=== PATIENT | male | born 1955 ===

== ENCOUNTER → 2020-03-23 13:24 | Outpatient (BNVA) | payer OTHER, SELFPAY | PROVIDERS: PCP Internal Medicine; Visit Provider Internal Medicine | DX: I48.19 Other persistent atrial fibrillation (principal); Z51.81 Encounter for therapeutic drug level monitoring; Z79.01 Long term (current) use of anticoagulants | CPT/HCPCS: 85610 ==

== ENCOUNTER → 2020-04-27 08:50 | Outpatient (BNVA) | payer OTHER, SELFPAY | PROVIDERS: PCP Internal Medicine; Visit Provider Internal Medicine | DX: I48.19 Other persistent atrial fibrillation (principal); Z51.81 Encounter for therapeutic drug level monitoring; Z79.01 Long term (current) use of anticoagulants | CPT/HCPCS: 85610; 99211 ==

== ENCOUNTER → 2020-06-08 08:58 | Outpatient (BNVA) | payer OTHER, SELFPAY | PROVIDERS: PCP Internal Medicine; Visit Provider Internal Medicine | DX: I48.19 Other persistent atrial fibrillation (principal); Z79.01 Long term (current) use of anticoagulants; Z51.81 Encounter for therapeutic drug level monitoring | CPT/HCPCS: 85610; 99211 ==

== ENCOUNTER → 2020-06-29 08:47 | Outpatient (BNVA) | payer OTHER, SELFPAY | PROVIDERS: PCP Internal Medicine; Visit Provider Internal Medicine | DX: I48.19 Other persistent atrial fibrillation (principal); Z51.81 Encounter for therapeutic drug level monitoring; Z79.01 Long term (current) use of anticoagulants | CPT/HCPCS: 85610; 99211 ==

== ENCOUNTER → 2020-07-07 10:51 | Outpatient (BNVA) | payer OTHER, SELFPAY | PROVIDERS: PCP Internal Medicine; Visit Provider Internal Medicine Cardiovascular Disease | DX: I48.0 Paroxysmal atrial fibrillation (principal) | CPT/HCPCS: 93005 ==

== ENCOUNTER 2020-07-29 14:06 | Outpatient (REF) | payer OTHER, SELFPAY ==
[2020-07-29 14:54] LABS: Influenza A PCR NEGATIVE (Negative); Influenza B PCR NEGATIVE (Negative); Resp Syncy Virus RNA Qual PCR NEGATIVE (Negative); SARS COV2 PCR INHOUSE NEGATIVE (Negative)
== END 2020-07-29 14:07 | disposition home or self-care (01) ==
LOC: HO.LNP 14:06
PROVIDERS: Visit Provider Internal Medicine
DX: Z20.822 Contact with and (suspected) exposure to COVID-19 (principal); R07.89 Other chest pain; R11.0 Nausea; R43.8 Other disturbances of smell and taste
CPT/HCPCS: 0241U

== ENCOUNTER → 2020-08-10 09:03 | Outpatient (REF) | payer OTHER, SELFPAY ==
--- NOTE | 2020-08-10 09:07 | CA_ITS ---
Transthoracic Echocardiogram Patient (Last, First, Middle): Quang Gagnon, Gender: Male Date of : 1955 Age: 65 Procedure Date: 08/10/2020 Procedure Type: Transthoracic Echocardiogram Location: OP Height: 185.42 cm Weight: 129.28 kg BSA: 2.50 m2 Heart Rate: bpm BP: 130 / 72 mmHg Mill Tender: TOMER Blood MD: Buster Roa MD Production Finisher: Chaitanya Gaines MD Symptoms: I48.0 - Paroxysmal atrial fibrillation Study Quality: Fair ECG Rhythm: Atrial Fibrillation Conclusions: - 1. Low normal LV systolic function 2. Mildly dilated left atrium 3. Normal cardiac valvular Doppler 4. Normal RV systolic pressure 5. No pericardial effusion Findings Left Ventricle Normal left ventricular cavity size. There is normal left ventricular wall thickness. The left ventricular systolic function is low normal. The visually estimated ejection fraction is between 50-55%. Diastolic function is indeterminate on the basis of available data. Right Ventricle Mildly increased right ventricular cavity size. There is borderline right ventricular systolic function. Atria The left atrium is mildly dilated. There is lipomatous hypertrophy of the interatrial septum. Interatrial shunt cannot be excluded. The right atrium is normal in size. Aortic Valve There is mild calcification of the aortic valve. There is mild thickening of the aortic valve. There is no aortic valve stenosis. There is no aortic valve regurgitation. Mitral Valve Likely normal mitral valve structure and function. There is trace mitral valve regurgitation. There is no mitral valve stenosis. Pulmonic Valve The pulmonic valve was not well visualized. Tricuspid Valve Likely normal tricuspid valve structure and function. There is mild tricuspid valve regurgitation. The right ventricular systolic pressure is normal. The right ventricular systolic pressure is 29 mmHg. Normal right atrial pressure. There is no evidence of pulmonary hypertension. Great Vessels All visible segments of the aorta are normal in size. The pulmonary artery was not well visualized. Venous The inferior vena cava is normal in size and collapses greater than 50% with inspiration. Pericardium/Pleural There is no evidence of pericardial effusion. Prior Study Comparison Changes noted compared to prior study dated: 02/11/2017. Patient noted to be in atrial fibrillation on this study. LV systolic function marginally reduced Measurements 2D Linear Measurements IVSd: 1.05 0.6-0.9/0.6-1.0 cm LVIDd: 4.88 3.9-5.3/4.2-5.9 cm LVIDd Index: 1.95 2.4-3.2/2.2-3.1 cm/m2 LVIDs: 3.56 2.0-3.6 cm LVPWd: 1.00 0.7-1.1 cm Ao Root: 3.50 2.1-3.5 cm LA Diam: 5.20 2.7-3.8/3.0-4.0 cm LAIDs Index: 2.08 1.5-2.3 cm/m2 LV Mass: 268.93 67-162/88-224 g LV Mass Index: 107.57 43-95/49-115 g/m2 LVOT Diam: 2.30 3.0+(-)1.3 cm 2D Systolic Function EF 4C: 50.30 >55% EF 2C: 55.10 >55% EF BiP: 52.20 >55% Aortic Valve AoV Pk Howard: 1.12 AoV Mn Ohward: 0.84 AoV VTI: 0.22 AoV Pk Grad: 5.00 Aov Mn Grad: 3.00 WILFREDO Cont.VTI: 3.78 LVOT LVOT Pk Howard: 0.88 LVOT Mn Howard: 0.57 LVOT VTI: 0.20 LVOT Pk Grad: 3.00 LVOT Mn Grad: 2.00 LVOT Diam: 2.30 LVOT Area: 4.15 Tricuspid Valve TR Pk Howard: 2.53 TR Pk Grad: 26.00 RA Press: 3.00 RVSP: 29.00 Great Vessels Aorta Ao Root-2D: 3.50 2.0-3.7 cm Ao Asc: 3.70 2.1-3.4 cm Ao Arch: 3.30 Updated in Other Vendor System with Status of Final Chaitanya Gaines MD electronically signed on 08/11/2020 11:27:46 AM with status of Final
== END ==
LOC: HO.CARD 09:03
PROVIDERS: PCP Internal Medicine; Visit Provider Internal Medicine Cardiovascular Disease
DX: I48.0 Paroxysmal atrial fibrillation (principal)
CPT/HCPCS: 93306

== ENCOUNTER → 2020-08-17 08:49 | Outpatient (BNVA) | payer OTHER, SELFPAY | PROVIDERS: PCP Internal Medicine; Visit Provider Internal Medicine | DX: I48.19 Other persistent atrial fibrillation (principal); Z51.81 Encounter for therapeutic drug level monitoring; Z79.01 Long term (current) use of anticoagulants | CPT/HCPCS: 85610; 99211 ==

== ENCOUNTER 2020-09-14 11:57 | Outpatient (REF) | payer OTHER, SELFPAY ==
[2020-09-14 14:08] LABS: MANUAL DIFF FLAG NO
[2020-09-14 14:17] LABS: Basophils Percent Auto 0.5 % (0-2); Eosinophils Absolute Auto 0.1 X10*3/uL (0.0-0.4); Eosinophils Percent Auto 1.5 % (0-4); Hematocrit 48.5 % (42-52); Hemoglobin 16.2 g/dl (14.0-18.0); Imm Gran Abs Auto 0.05 X10*3/uL (0.00-0.03); Imm Gran Pct Auto 0.6 % (0.0-0.4); Lymphocytes Absolute Auto 1.3 X10*3/uL (1.2-4.9); Lymphocytes Percent Auto 15.2 % (20-40); Mean Corpuscular HGB Conc 33.4 g/dl (31.0-36.0); Mean Corpuscular Hemoglobin 29.5 pg (27.0-33.0); Mean Corpuscular Volume 88.3 fL (80-98); Mean Platelet Volume 11.1 fL (9.4-12.4); Monocytes Absolute Auto 0.8 X10*3/uL (0.1-1.2); Monocytes Percent Auto 9.3 % (2-11); Neutrophils Absolute Auto 6.2 X10*3/uL (2.0-8.3); Neutrophils Percent Auto 72.9 % (45-73); Platelet Count 205 X10*3/uL (160-400); Red Blood Count 5.49 X10*6/uL (4.60-5.80); Red Cell Distribution Width 13.2 % (11.0-16.0); White Blood Count 8.5 X10*3/uL (4.8-10.8)
[2020-09-14 14:19] LABS: INTERNATIONAL NORM RATIO 2.7 (0.9-1.1); Prothrombin Time 32.2 SEC (10.8-13.0)
[2020-09-14 14:41] LABS: Alanine Aminotransferase 24 U/L (0-40); Albumin Level 4.6 g/dL (3.5-5.0); Alkaline Phosphatase 56 U/L (39-117); Anion Gap 16 (12-20); Aspartate Amino Transferase 22 U/L (5-37); Bilirubin Total 1.1 mg/dL (0.0-1.0); Blood Urea Nitrogen 15 mg/dL (9-16); C Reactive Protein 0.34 mg/dL (< or = 0.50); Carbon Dioxide 25 mmol/L (22-29); Chloride 101 mmol/L (96-108); Estimated Glomerular Filt Rate > 60; Glucose Random 102 mg/dL (60-115); Potassium 4.6 mmol/L (3.3-5.1); Sodium 137 mmol/L (135-145); Total Protein 7.2 g/dL (6.5-8.0)
== END 2020-09-14 11:58 | disposition home or self-care (01) ==
LOC: HO.10HDL 11:57
PROVIDERS: Visit Provider Internal Medicine
DX: K57.90 Diverticulosis of intestine, part unspecified, without perforation or abscess without bleeding (principal); I48.91 Unspecified atrial fibrillation; R10.32 Left lower quadrant pain; N18.9 Chronic kidney disease, unspecified
CPT/HCPCS: 36415; 80053; 85025; 85610; 86140

== ENCOUNTER 2020-09-19 14:47 | Outpatient (REF) | payer OTHER, SELFPAY ==
--- NOTE | ~2020-09-19 | CT_ITS ---
EXAMINATION: CT ABDOMEN AND PELVIS WITHOUT CONTRAST CLINICAL INFORMATION: Diverticulitis COMPARISON: Abdominal ultrasound January 28, [address] abdomen pelvis July 21, 2015 TECHNIQUE: Multidetector volumetric imaging was performed from the superior aspect of the liver through the pubic symphysis. Sagittal and coronal reformatted images were obtained on the technologist's workstation. This CT examination was performed using dose optimization techniques as appropriate, variously including the following: *Automated exposure control *Adjustment of mA and/or kV according to patient size (this includes techniques or standardized protocols for targeted exams where dose is matched to indication/reason for exam; i.e. extremities or head) *Use of iterative reconstruction technique DLP: 876 mGy-cm FINDINGS: Visualized lung bases demonstrate mild dependent atelectasis. Stable 2 mm lingular nodule. Partially visualized coronary artery calcifications. The liver demonstrates normal size, contour and attenuation. The gallbladder is normal in appearance. The pancreas, spleen and adrenal glands are unremarkable. Symmetrically sized kidneys. No renal calculi or hydronephrosis. Stable right renal cyst. 2.4 cm lobular density within the lower lateral pole of the left kidney is poorly visualized but likely corresponds to a partially exophytic nonspecific lesion identified on ultrasound imaging from January 28, 2019. The stomach is decompressed. Normal caliber loops of small and large bowel. Moderate colonic diverticulosis. No CT evidence to suggest active diverticulitis. Normal appendix. Small fat-containing umbilical hernia is unchanged. Nonaneurysmal abdominal aorta which demonstrates mild to moderate atherosclerotic disease. No retroperitoneal lymphadenopathy. The bladder is normal in appearance. The prostate gland is mildly enlarged. No gross free pelvic fluid. Shotty bilateral inguinal lymph nodes again demonstrated. Moderate diffuse degenerative changes of the spine. CT/CT abdomen pelvis wo con IMPRESSION: -Colonic diverticulosis without CT evidence to suggest active diverticulitis. -2.4 cm lobular density within the lower lateral pole of the left kidney is poorly visualized but likely corresponds to the partially exophytic nonspecific lesion identified on ultrasound imaging from January 28, 2019. This nonspecific finding can be further evaluated with follow-up renal ultrasound or multiphase cross-sectional imaging.
[2020-09-19] MEDS: Barium Sulfate Oral (Mocha) 450 ML ORAL.SUSP 900 ML PO (17:06)
== END 2020-09-19 14:48 | disposition home or self-care (01) ==
LOC: HO.CT 14:47
PROVIDERS: PCP Internal Medicine; Visit Provider Internal Medicine
DX: R10.32 Left lower quadrant pain (principal); K57.92 Diverticulitis of intestine, part unspecified, without perforation or abscess without bleeding
CPT/HCPCS: 74176

== ENCOUNTER → 2020-09-21 10:14 | Outpatient (BNVA) | payer OTHER, SELFPAY | PROVIDERS: PCP Internal Medicine; Visit Provider Nurse Practitioner Family | DX: I48.0 Paroxysmal atrial fibrillation (principal); Z79.01 Long term (current) use of anticoagulants; Z79.899 Other long term (current) drug therapy; Z87.891 Personal history of nicotine dependence | CPT/HCPCS: 85610; 93005; 99211 ==

== ENCOUNTER → 2020-09-28 09:43 | Outpatient (REF) | payer OTHER, SELFPAY ==
--- NOTE | 2020-09-28 11:00 | ECG_ITS ---
Hook-up date: 2020-09-28 10:15:00 Duration: 24:42:00 Test Indications: PAF Medications: 51703 QRS complexes 36 Ventricular ectopics which represent <1 % of total QRS comp. * Supraventricular ectopics which represent % of total QRS comp. * Paced QRS complexs which represent % of total QRS comp. VENTRICULAR ECTOPY 36 Isolated 0 Bigeminal Cycles 0 Couplets 0 Runs 0 Beats in Runs * Beats LONGEST at * BPM at :: -- * Beats FASTEST at * BPM at :: -- SUPRAVENTRICULAR ECTOPY * Isolated * Couplets * Runs * Beats in Runs * Beats LONGEST at * BPM at :: -- * Beats FASTEST at * BPM at :: -- HEART RATES 38 MIN at 23:36:33 2020-09-28 66 AVG 144 MAX at 18:19:38 2020-09-28 LONGEST RR 3.2240 secs at 02:18:52 2020-09-29 S-T LEVELS Channel 1 - 128 mm at 10:15:00 2020-09-28 - 128 mm at 10:15:00 2020-09-28 Channel 2 - 128 mm at 10:15:00 2020-09-28 - 128 mm at 10:15:00 2020-09-28 Channel 3 - 128 mm at 02:93:41 -- - 128 mm at 02:93:41 Basic rhythm Atrial fibrillation Average HR of 66 bpm with no significant pauses Frequent slow VR with 35% of time HR < 60 bpm Rare Premature ventricular complexes Patient did not report any symptoms in the diary Referred By: Ruthann Jonas Overread By: ROCIO LAWOSN MD
== END ==
LOC: HO.CARD 09:43
PROVIDERS: PCP Internal Medicine; Visit Provider Nurse Practitioner Family
DX: I48.0 Paroxysmal atrial fibrillation (principal)
CPT/HCPCS: 93226

== ENCOUNTER 2020-10-21 10:41 | Outpatient (REF) | payer OTHER, SELFPAY ==
[2020-10-21 13:50] LABS: MANUAL DIFF FLAG NO
[2020-10-21 13:54] LABS: Basophils Percent Auto 0.4 % (0-2); Eosinophils Absolute Auto 0.1 X10*3/uL (0.0-0.4); Eosinophils Percent Auto 1.3 % (0-4); Hematocrit 46.8 % (42-52); Hemoglobin 15.4 g/dl (14.0-18.0); Imm Gran Abs Auto 0.04 X10*3/uL (0.00-0.03); Imm Gran Pct Auto 0.4 % (0.0-0.4); Lymphocytes Absolute Auto 1.1 X10*3/uL (1.2-4.9); Lymphocytes Percent Auto 9.8 % (20-40); Mean Corpuscular HGB Conc 32.9 g/dl (31.0-36.0); Mean Corpuscular Hemoglobin 29.4 pg (27.0-33.0); Mean Corpuscular Volume 89.5 fL (80-98); Mean Platelet Volume 11.2 fL (9.4-12.4); Monocytes Percent Auto 9.1 % (2-11); Neutrophils Absolute Auto 8.6 X10*3/uL (2.0-8.3); Platelet Count 180 X10*3/uL (160-400); Red Blood Count 5.23 X10*6/uL (4.60-5.80); Red Cell Distribution Width 13.4 % (11.0-16.0); White Blood Count 10.9 X10*3/uL (4.8-10.8)
[2020-10-21 13:58] LABS: Glucose Urine UA NEG (NEG); Leukocyte Esterase Urine NEG (NEG); Nitrite Urine NEG (NEG); PH 6.5 (5.0-8.0); Specific Gravity - Urine <= 1.005 (1.005-1.025); Urine Blood NEG (NEG); Urine Ketones NEG (NEG); Urine Protein NEG (NEG-TRACE)
[2020-10-21 14:01] LABS: Appearance Urine CLEAR; Color Urine YELLOW
[2020-10-21 14:31] LABS: Alanine Aminotransferase 16 U/L (0-40); Albumin Level 4.4 g/dL (3.5-5.0); Alkaline Phosphatase 58 U/L (39-117); Anion Gap 13 (12-20); Aspartate Amino Transferase 18 U/L (5-37); Bilirubin Total 1.2 mg/dL (0.0-1.0); Blood Urea Nitrogen 18 mg/dL (9-16); C Reactive Protein 2.39 mg/dL (< or = 0.50); Calcium 9.3 mg/dL (8.4-10.2); Carbon Dioxide 29 mmol/L (22-29); Chloride 103 mmol/L (96-108); Estimated Glomerular Filt Rate > 60; Glucose Fasting 96 mg/dL (60-99); Potassium 4.7 mmol/L (3.3-5.1); Sodium 140 mmol/L (135-145); Total Protein 6.9 g/dL (6.5-8.0)
== END 2020-10-21 10:42 | disposition home or self-care (01) ==
LOC: HO.10HDL 10:41
PROVIDERS: Visit Provider Internal Medicine
DX: I48.91 Unspecified atrial fibrillation (principal); R10.32 Left lower quadrant pain; K57.90 Diverticulosis of intestine, part unspecified, without perforation or abscess without bleeding
CPT/HCPCS: 36415; 80053; 81003; 82550; 85025; 86140

== ENCOUNTER → 2020-11-02 09:56 | Outpatient (BNVA) | payer OTHER, SELFPAY | PROVIDERS: PCP Internal Medicine; Visit Provider Internal Medicine | DX: I48.19 Other persistent atrial fibrillation (principal); Z51.81 Encounter for therapeutic drug level monitoring; Z79.01 Long term (current) use of anticoagulants | CPT/HCPCS: 85610; 93005; 99211 ==

== ENCOUNTER → 2020-12-14 09:23 | Outpatient (BNVA) | payer OTHER, SELFPAY | PROVIDERS: PCP Internal Medicine; Visit Provider Internal Medicine | DX: I48.19 Other persistent atrial fibrillation (principal); Z51.81 Encounter for therapeutic drug level monitoring; Z79.01 Long term (current) use of anticoagulants | CPT/HCPCS: 85610; 99211 ==

== ENCOUNTER → 2021-01-25 09:23 | Outpatient (BNVA) | payer OTHER, SELFPAY | PROVIDERS: PCP Internal Medicine; Visit Provider Internal Medicine | DX: I48.19 Other persistent atrial fibrillation (principal); Z51.81 Encounter for therapeutic drug level monitoring; Z79.01 Long term (current) use of anticoagulants | CPT/HCPCS: 85610; 99211 ==

== ENCOUNTER → 2021-02-21 12:55 | Outpatient (BNVA) | payer OTHER, SELFPAY | PROVIDERS: PCP Internal Medicine; Referring Provider Internal Medicine; Visit Provider Nurse Practitioner Family | DX: I48.0 Paroxysmal atrial fibrillation (principal); Z79.01 Long term (current) use of anticoagulants | CPT/HCPCS: 93005 ==

== ENCOUNTER 2021-03-03 06:31 | Outpatient (REF) | payer OTHER, SELFPAY ==
[2021-03-03 07:35] LABS: MANUAL DIFF FLAG NO
[2021-03-03 07:40] LABS: Basophils Percent Auto 0.7 % (0-2); Eosinophils Absolute Auto 0.1 X10*3/uL (0.0-0.4); Eosinophils Percent Auto 2.4 % (0-4); Hematocrit 43.6 % (42-52); Hemoglobin 14.2 g/dl (14.0-18.0); Imm Gran Abs Auto 0.03 X10*3/uL (0.00-0.03); Imm Gran Pct Auto 0.6 % (0.0-0.4); Lymphocytes Absolute Auto 1.2 X10*3/uL (1.2-4.9); Lymphocytes Percent Auto 21.6 % (20-40); Mean Corpuscular HGB Conc 32.6 g/dl (31.0-36.0); Mean Corpuscular Hemoglobin 28.7 pg (27.0-33.0); Mean Corpuscular Volume 88.3 fL (80-98); Mean Platelet Volume 10.8 fL (9.4-12.4); Monocytes Absolute Auto 0.5 X10*3/uL (0.1-1.2); Monocytes Percent Auto 9.5 % (2-11); Neutrophils Absolute Auto 3.5 X10*3/uL (2.0-8.3); Neutrophils Percent Auto 65.2 % (45-73); Platelet Count 211 X10*3/uL (160-400); Red Blood Count 4.94 X10*6/uL (4.60-5.80); Red Cell Distribution Width 13.2 % (11.0-16.0); White Blood Count 5.4 X10*3/uL (4.8-10.8)
[2021-03-03 08:17] LABS: Alanine Aminotransferase 44 U/L (0-40); Albumin Level 3.9 g/dL (3.5-5.0); Alkaline Phosphatase 73 U/L (39-117); Anion Gap 12 (12-20); Aspartate Amino Transferase 28 U/L (5-37); Bilirubin Total 0.6 mg/dL (0.0-1.0); Blood Urea Nitrogen 13 mg/dL (9-16); C Reactive Protein 2.07 mg/dL (< or = 0.50); Calcium 8.6 mg/dL (8.4-10.2); Carbon Dioxide 26 mmol/L (22-29); Chloride 106 mmol/L (96-108); Estimated Glomerular Filt Rate > 60; Glucose Random 90 mg/dL (60-115); Potassium 4.5 mmol/L (3.3-5.1); Sodium 139 mmol/L (135-145); Total Protein 6.3 g/dL (6.5-8.0)
[2021-03-03 08:44] LABS: Appearance Urine CLEAR; Color Urine YELLOW; Glucose Urine UA NEG (NEG); Leukocyte Esterase Urine NEG (NEG); Nitrite Urine NEG (NEG); PH 5.5 (5.0-8.0); Specific Gravity - Urine 1.025 (1.005-1.025); Urine Blood NEG (NEG); Urine Ketones NEG (NEG); Urine Protein NEG (NEG-TRACE)
== END 2021-03-03 06:32 | disposition home or self-care (01) ==
LOC: HO.LAB 06:31
PROVIDERS: PCP Internal Medicine; Visit Provider Internal Medicine
DX: R10.9 Unspecified abdominal pain (principal); R30.0 Dysuria; Z87.19 Personal history of other diseases of the digestive system
CPT/HCPCS: 36415; 80053; 81003; 85025; 86140; 87086

== ENCOUNTER → 2021-03-08 08:46 | Outpatient (BNVA) | payer OTHER, SELFPAY | PROVIDERS: PCP Internal Medicine; Visit Provider Internal Medicine | DX: I48.19 Other persistent atrial fibrillation (principal); Z51.81 Encounter for therapeutic drug level monitoring; Z79.01 Long term (current) use of anticoagulants | CPT/HCPCS: 85610; 99211 ==

== ENCOUNTER 2021-03-09 07:49 | Outpatient (REF) | payer OTHER, SELFPAY ==
[2021-03-09 09:04] LABS: Anion Gap 12 (12-20); Blood Urea Nitrogen 16 mg/dL (9-16); Calcium 9.4 mg/dL (8.4-10.2); Carbon Dioxide 28 mmol/L (22-29); Chloride 103 mmol/L (96-108); Estimated Glomerular Filt Rate 59; Glucose Random 96 mg/dL (60-115); Potassium 4.6 mmol/L (3.3-5.1); Sodium 138 mmol/L (135-145)
[2021-03-09 09:29] LABS: Prostate Specific Antigen 1.82 ng/mL (<0.05-4.0)
== END 2021-03-09 07:50 | disposition home or self-care (01) ==
LOC: HO.LAB 07:49
PROVIDERS: PCP Internal Medicine; Visit Provider Internal Medicine
DX: Z12.5 Encounter for screening for malignant neoplasm of prostate (principal); N40.0 Benign prostatic hyperplasia without lower urinary tract symptoms; R35.1 Nocturia
CPT/HCPCS: 36415; 80048; 84153

== ENCOUNTER 2021-04-19 07:24 | Outpatient (REF) | payer OTHER, SELFPAY ==
[2021-04-19 07:31] LABS: MANUAL DIFF FLAG NO
[2021-04-19 08:29] LABS: Basophils Percent Auto 0.7 % (0-2); Eosinophils Absolute Auto 0.1 X10*3/uL (0.0-0.4); Eosinophils Percent Auto 1.7 % (0-4); Hematocrit 47.5 % (42.0-52.0); Hemoglobin 15.7 g/dl (14.0-18.0); Imm Gran Abs Auto 0.02 X10*3/uL (0.00-0.03); Imm Gran Pct Auto 0.3 % (0.0-0.4); Lymphocytes Absolute Auto 1.2 X10*3/uL (1.2-4.9); Lymphocytes Percent Auto 20.5 % (20-40); Mean Corpuscular HGB Conc 33.1 g/dl (31.0-36.0); Mean Corpuscular Hemoglobin 29.2 pg (27.0-33.0); Mean Corpuscular Volume 88.5 fL (80.0-98.0); Monocytes Absolute Auto 0.5 X10*3/uL (0.1-1.2); Neutrophils Absolute Auto 4.08 x10*3/uL (2.0-8.3); Neutrophils Percent Auto 67.8 % (45-73); Platelet Count 170 X10*3/uL (160-400); Red Blood Count 5.37 X10*6/uL (4.60-5.80); Red Cell Distribution Width 13.6 % (11.0-16.0)
[2021-04-19 08:58] LABS: Alanine Aminotransferase 19 U/L (0-40); Albumin Level 4.5 g/dL (3.5-5.0); Alkaline Phosphatase 50 U/L (39-117); Anion Gap 12 (12-20); Aspartate Amino Transferase 18 U/L (5-37); Bilirubin Direct 0.3 mg/dL (0.0-0.5); Bilirubin Total 0.7 mg/dL (0.0-1.0); Blood Urea Nitrogen 14 mg/dL (9-16); Calcium 9.4 mg/dL (8.4-10.2); Carbon Dioxide 30 mmol/L (22-29); Chloride 104 mmol/L (96-108); Cholesterol 145 mg/dL; Estimated Glomerular Filt Rate 58; Glucose Fasting 113 mg/dL (60-99); HDL Cholesterol 36 mg/dL; LDL Cholesterol Calculated 76 mg/dl; Potassium 4.9 mmol/L (3.3-5.1); Sodium 141 mmol/L (135-145); Total Protein 6.6 g/dL (6.5-8.0); Triglycerides 169 mg/dL
[2021-04-19 09:19] LABS: Prostate Specific Antigen 1.02 ng/mL (<0.05-4.0)
== END 2021-04-19 07:25 | disposition home or self-care (01) ==
LOC: HO.LAB 07:24
PROVIDERS: PCP Internal Medicine; Visit Provider Internal Medicine
DX: I10 Essential (primary) hypertension (principal); I48.0 Paroxysmal atrial fibrillation; E78.00 Pure hypercholesterolemia, unspecified; Z12.5 Encounter for screening for malignant neoplasm of prostate; I48.19 Other persistent atrial fibrillation; Z51.81 Encounter for therapeutic drug level monitoring; Z79.01 Long term (current) use of anticoagulants
CPT/HCPCS: 36415; 80053; 80061; 80076; 82248; 84153; 85025; 85610; 99211

== ENCOUNTER → 2021-05-24 08:45 | Outpatient (BNVA) | payer OTHER, SELFPAY | PROVIDERS: PCP Internal Medicine; Visit Provider Internal Medicine | DX: I48.19 Other persistent atrial fibrillation (principal); Z51.81 Encounter for therapeutic drug level monitoring; Z79.01 Long term (current) use of anticoagulants | CPT/HCPCS: 85610; 99211 ==

== ENCOUNTER → 2021-07-19 08:58 | Outpatient (BNVA) | payer OTHER, SELFPAY | PROVIDERS: PCP Internal Medicine; Visit Provider Internal Medicine | DX: I48.19 Other persistent atrial fibrillation (principal); Z51.81 Encounter for therapeutic drug level monitoring; Z79.01 Long term (current) use of anticoagulants | CPT/HCPCS: 85610; 99211 ==

== ENCOUNTER → 2021-08-30 08:54 | Outpatient (BNVA) | payer OTHER, SELFPAY | PROVIDERS: PCP Internal Medicine; Visit Provider Internal Medicine | DX: I48.19 Other persistent atrial fibrillation (principal); Z51.81 Encounter for therapeutic drug level monitoring; Z79.01 Long term (current) use of anticoagulants | CPT/HCPCS: 85610; 99211 ==

== ENCOUNTER → 2021-10-11 08:50 | Outpatient (BNVA) | payer OTHER, SELFPAY | PROVIDERS: PCP Internal Medicine; Visit Provider Internal Medicine | DX: I48.19 Other persistent atrial fibrillation (principal); Z79.01 Long term (current) use of anticoagulants; Z51.81 Encounter for therapeutic drug level monitoring | CPT/HCPCS: 85610; 99211 ==

== ENCOUNTER → 2021-10-25 13:04 | Outpatient (BNVA) | payer OTHER, SELFPAY | PROVIDERS: PCP Internal Medicine; Referring Provider Internal Medicine; Visit Provider Nurse Practitioner Family | DX: I48.0 Paroxysmal atrial fibrillation (principal); Z79.01 Long term (current) use of anticoagulants | CPT/HCPCS: 93005 ==

== ENCOUNTER 2021-10-26 10:54 | Outpatient (REF) | payer OTHER, SELFPAY ==
[2021-10-26 11:40] LABS: MANUAL DIFF FLAG NO
[2021-10-26 12:09] LABS: Basophils Percent Auto 0.5 % (0-2); Eosinophils Absolute Auto 0.2 X10*3/uL (0.0-0.4); Eosinophils Percent Auto 1.9 % (0-4); Hematocrit 44.3 % (42.0-52.0); Hemoglobin 14.5 g/dl (14.0-18.0); Imm Gran Abs Auto 0.03 X10*3/uL (0.00-0.03); Imm Gran Pct Auto 0.4 % (0.0-0.4); Lymphocytes Absolute Auto 1.3 X10*3/uL (1.2-4.9); Lymphocytes Percent Auto 15.3 % (20-40); Mean Corpuscular HGB Conc 32.7 g/dl (31.0-36.0); Mean Corpuscular Hemoglobin 29.1 pg (27.0-33.0); Mean Corpuscular Volume 88.8 fL (80.0-98.0); Mean Platelet Volume 11.3 fL (9.4-12.4); Monocytes Absolute Auto 0.8 X10*3/uL (0.1-1.2); Neutrophils Absolute Auto 6.1 x10*3/uL (2.0-8.3); Neutrophils Percent Auto 72.9 % (45-73); Platelet Count 175 X10*3/uL (160-400); Red Blood Count 4.99 X10*6/uL (4.60-5.80); Red Cell Distribution Width 13.2 % (11.0-16.0); White Blood Count 8.3 X10*3/uL (4.8-10.8)
[2021-10-26 12:37] LABS: INTERNATIONAL NORM RATIO 3.1 (0.9-1.1); Prothrombin Time 35.8 SEC (9.9-13.0)
[2021-10-26 12:42] LABS: Anion Gap 13 (12-20); Blood Urea Nitrogen 15 mg/dL (9-16); Calcium 9.3 mg/dL (8.4-10.2); Carbon Dioxide 28 mmol/L (22-29); Chloride 104 mmol/L (96-108); Estimated Glomerular Filt Rate > 60; Glucose Random 103 mg/dL (60-115); Potassium 5.4 mmol/L (3.3-5.1); Sodium 140 mmol/L (135-145)
== END 2021-10-26 10:55 | disposition home or self-care (01) ==
LOC: HO.LAB 10:54
PROVIDERS: PCP Internal Medicine; Visit Provider Internal Medicine
DX: R04.0 Epistaxis (principal); I48.91 Unspecified atrial fibrillation; N18.9 Chronic kidney disease, unspecified
CPT/HCPCS: 36415; 80048; 85025; 85610

== ENCOUNTER → 2021-11-08 13:09 | Outpatient (REF) | payer OTHER, SELFPAY ==
--- NOTE | 2021-11-08 13:12 | ECG_ITS ---
Hook-up date: 2021-11-08 12:21:00 Duration: 24:21:00 Test Indications: PAF Medications: 17331 QRS complexes 269 Ventricular ectopics which represent <1 % of total QRS comp. * Supraventricular ectopics which represent % of total QRS comp. * Paced QRS complexs which represent % of total QRS comp. VENTRICULAR ECTOPY 267 Isolated 0 Bigeminal Cycles 1 Couplets 0 Runs 0 Beats in Runs * Beats LONGEST at * BPM at :: -- * Beats FASTEST at * BPM at :: -- SUPRAVENTRICULAR ECTOPY * Isolated * Couplets * Runs * Beats in Runs * Beats LONGEST at * BPM at :: -- * Beats FASTEST at * BPM at :: -- HEART RATES 31 MIN at 23:47:26 2021-11-08 61 AVG 147 MAX at 17:15:18 2021-11-08 LONGEST RR 3.4400 secs at 23:47:18 2021-11-08 S-T LEVELS Channel 1 - 128 mm at 12:21:00 2021-11-08 - 128 mm at 12:21:00 2021-11-08 Channel 2 - 128 mm at 12:21:00 2021-11-08 - 128 mm at 12:21:00 2021-11-08 Channel 3 - 128 mm at 03:14:01 -- - 128 mm at 03:14:01 Underlying rhythm atrial fibrillation; Average rate 61/min; range 31-147/min; About 45% of the time, rate <60/min; 5%, >100/min; Longest pause 3.4sec during sleep hours; longest daytime pause 2.9sec; Overall, reasonable rate control, but with evidence of both bradycardia and tachycardia at times. Referred By: Ruthann Jonas Overread By: AVA KHAN
== END ==
LOC: HO.CARD 13:09
PROVIDERS: PCP Internal Medicine; Visit Provider Nurse Practitioner Family
DX: I48.0 Paroxysmal atrial fibrillation (principal)
CPT/HCPCS: 93226

== ENCOUNTER → 2021-11-22 08:48 | Outpatient (BNVA) | payer OTHER, SELFPAY | PROVIDERS: PCP Internal Medicine; Visit Provider Internal Medicine | DX: Z79.01 Long term (current) use of anticoagulants (principal); Z51.81 Encounter for therapeutic drug level monitoring; I48.19 Other persistent atrial fibrillation | CPT/HCPCS: 85610; 99211 ==

== ENCOUNTER → 2022-01-03 08:47 | Outpatient (BNVA) | payer OTHER, SELFPAY | PROVIDERS: PCP Internal Medicine; Visit Provider Internal Medicine | DX: I48.19 Other persistent atrial fibrillation (principal); Z15.81 Genetic susceptibility to multiple endocrine neoplasia [MEN]; Z79.01 Long term (current) use of anticoagulants | CPT/HCPCS: 85610; 99211 ==

== ENCOUNTER → 2022-02-14 09:02 | Outpatient (BNVA) | payer OTHER, SELFPAY | PROVIDERS: PCP Internal Medicine; Visit Provider Internal Medicine | DX: I48.19 Other persistent atrial fibrillation (principal); Z51.81 Encounter for therapeutic drug level monitoring; Z79.01 Long term (current) use of anticoagulants | CPT/HCPCS: 85610; 99211 ==

== ENCOUNTER → 2022-03-28 09:30 | Outpatient (BNVA) | payer OTHER, SELFPAY | PROVIDERS: PCP Internal Medicine; Visit Provider Internal Medicine | DX: I48.19 Other persistent atrial fibrillation (principal); Z79.01 Long term (current) use of anticoagulants; Z51.81 Encounter for therapeutic drug level monitoring | CPT/HCPCS: 85610; 99211 ==

== ENCOUNTER → 2022-04-30 09:13 | Outpatient (BNVA) | payer OTHER, SELFPAY | PROVIDERS: PCP Internal Medicine; Referring Provider Internal Medicine; Visit Provider Internal Medicine Cardiovascular Disease | DX: I48.0 Paroxysmal atrial fibrillation (principal) | CPT/HCPCS: 93005 ==

== ENCOUNTER → 2022-05-04 08:07 | Outpatient (REF) | payer OTHER, SELFPAY ==
--- NOTE | 2022-05-04 08:09 | CA_ITS ---
Transthoracic Echocardiogram Patient (Last, First, Middle): Steph Gagnon, Gender: Male Date of : 1955 Age: 67 Procedure Date: 05/04/2022 Procedure Type: Transthoracic Echocardiogram Location: OP Height: 185.42 cm Weight: 124.74 kg BSA: 2.46 m2 Heart Rate: 85 bpm BP: 126 / 80 mmHg Help Aid: SB Referring MD: Buster Roa MD Label Cutter: Buster Roa MD Symptoms: I48.0 - Paroxysmal atrial fibrillation Study Quality: Adequate ECG Rhythm: Atrial Fibrillation Conclusions: - 1. Low normal LV systolic function with LVEF of 50-55% 2. Moderately enlarged right and left atrium 3. Normal cardiac valvular Dopplers next 4. Normal RV systolic pressure with mildly elevated right atrial pressures 5. No gross pericardial effusion Findings Left Ventricle Normal left ventricular cavity size. There is normal left ventricular wall thickness. The left ventricular systolic function is low normal. The visually estimated ejection fraction is between 50-55%. Diastolic function is indeterminate on the basis of available data. Peak GLS is -13.1%, which is reduced. Right Ventricle Mildly increased right ventricular cavity size. There is normal right ventricular systolic function. Atria The left atrium is moderately dilated. There is no evidence of interatrial shunt. The right atrium is moderately dilated. Aortic Valve Normal aortic valve structure and function. There is no aortic valve stenosis. There is no aortic valve regurgitation. Mitral Valve There is mild anterior and posterior mitral leaflet thickening. There is trace mitral valve regurgitation. There is no mitral valve stenosis. Pulmonic Valve The pulmonic valve was not well visualized. Tricuspid Valve Normal tricuspid valve structure. There is trace tricuspid valve regurgitation. The right ventricular systolic pressure is normal. Mildly elevated right atrial pressure. There is no evidence of pulmonary hypertension. Great Vessels All visible segments of the aorta are normal in size. The pulmonary artery was not well visualized. Venous The inferior vena cava is mildly dilated and collapses less than 50% with inspiration. Pericardium/Pleural There is no evidence of pericardial effusion. Measurements 2D Linear Measurements IVSd: 1.29 0.6-0.9/0.6-1.0 cm LVIDd: 5.47 3.9-5.3/4.2-5.9 cm LVIDd Index: 2.22 2.4-3.2/2.2-3.1 cm/m2 LVIDs: 3.37 2.0-3.6 cm LVPWd: 0.82 0.7-1.1 cm LA Diam: 5.30 2.7-3.8/3.0-4.0 cm LAIDs Index: 2.15 1.5-2.3 cm/m2 LV Mass: 283.08 67-162/88-224 g LV Mass Index: 115.08 43-95/49-115 g/m2 LVOT Diam: 2.60 3.0+(-)1.3 cm 2D Systolic Function EF 4C: 53.50 >55% EF 2C: 53.50 >55% EF BiP: 52.20 >55% Mitral Valve MV Pk E: 0.94 Aortic Valve AoV Pk Howard: 1.29 AoV Pk Grad: 7.00 WILFREDO: 4.10 LVOT LVOT Pk Howard: 1.01 LVOT Mn Howard: 0.71 LVOT VTI: 0.19 LVOT Pk Grad: 4.00 LVOT Mn Grad: 2.00 LVOT Diam: 2.60 LVOT Area: 5.31 Diastolic Function MV Pk E: 0.94 Right Ventricle TAPSE (mm): 20.90 TVS' Howard: 12.90 Tricuspid Valve TR Pk Howard: 2.61 TR Pk Grad: 27.00 RA Press: 8.00 RVSP: 35.00 Great Vessels Aorta Sinus of Valsalva: 3.40 2.0-3.5 cm Ao Asc: 3.80 2.1-3.4 cm Pulmonary Valve PV Pk Howard: 1.11 Peak PV Grad: 5.00 Updated in Other Vendor System with Status of Final Chaitanya Gaines MD electronically signed on 05/06/2022 12:10:49 PM with status of Final
== END ==
LOC: HO.CARD 08:07
PROVIDERS: PCP Internal Medicine; Visit Provider Internal Medicine Cardiovascular Disease
DX: I48.0 Paroxysmal atrial fibrillation (principal)
CPT/HCPCS: 93306; 93356

== ENCOUNTER 2022-05-04 09:10 | Outpatient (REF) | payer OTHER, SELFPAY ==
--- NOTE | ~2022-05-04 | XR_ITS ---
EXAMINATION: XR CHEST CLINICAL INFORMATION: Cough COMPARISON: Previous chest x-ray 2018 TECHNIQUE: 2 views of the chest were obtained. FINDINGS: The cardiac and mediastinal contours are stable. The thoracic aorta is tortuous. There is patchy airspace disease seen in the right upper lobe questionable for small pneumonia. The lungs are otherwise clear. There is no pleural effusion or pneumothorax. There are degenerative changes of the spine. XR/XR chest 2V IMPRESSION: Question small upper lobe right pneumonia. Findings will be communicated by the [place] work flow general farmer.
[2022-05-04 10:24] LABS: MANUAL DIFF FLAG NO
[2022-05-04 10:28] LABS: Basophils Absolute Auto 0.1 X10*3/uL (0.0-0.2); Basophils Percent Auto 0.5 % (0-2); Eosinophils Absolute Auto 0.1 X10*3/uL (0.0-0.4); Eosinophils Percent Auto 0.8 % (0-4); Hematocrit 47.5 % (42.0-52.0); Hemoglobin 15.6 g/dl (14.0-18.0); Imm Gran Abs Auto 0.05 X10*3/uL (0.00-0.03); Imm Gran Pct Auto 0.4 % (0.0-0.4); Lymphocytes Absolute Auto 0.8 X10*3/uL (1.2-4.9); Lymphocytes Percent Auto 6.4 % (20-40); Mean Corpuscular HGB Conc 32.8 g/dl (31.0-36.0); Mean Corpuscular Hemoglobin 29.3 pg (27.0-33.0); Mean Corpuscular Volume 89.1 fL (80.0-98.0); Mean Platelet Volume 11.5 fL (9.4-12.4); Monocytes Percent Auto 8.1 % (2-11); Neutrophils Absolute Auto 10.8 x10*3/uL (2.0-8.3); Neutrophils Percent Auto 83.8 % (45-73); Platelet Count 161 X10*3/uL (160-400); Red Blood Count 5.33 X10*6/uL (4.60-5.80); Red Cell Distribution Width 13.5 % (11.0-16.0); White Blood Count 12.9 X10*3/uL (4.8-10.8)
[2022-05-04 10:49] LABS: Appearance Urine Clear; Color Urine Dark Yellow; Glucose Urine UA Negative (Negative); Leukocyte Esterase Urine Negative (Negative); Nitrite Urine Negative (Negative); Specific Gravity - Urine 1.025 (1.005-1.025); UMIC TRIGGER UACC YES; Urine Blood Negative (Negative); Urine Ketones Trace mg/dL (Negative); Urine Protein 30 (1+) mg/dL (Neg-Trace)
[2022-05-04 10:51] LABS: Bacteria Urine None Seen (None Seen); RBC Urine 0-2 /HPF (0-2); Squamous Epithelial Cell Urine 0-2 /HPF (0-2); WBC Urine 0-5 /HPF (0-5)
[2022-05-04 11:08] LABS: Anion Gap 17 (12-20); Blood Urea Nitrogen 16 mg/dL (9-16); Calcium 9.1 mg/dL (8.4-10.2); Carbon Dioxide 27 mmol/L (22-29); Chloride 100 mmol/L (96-108); Estimated Glomerular Filt Rate 52; Glucose Random 88 mg/dL (60-115); Potassium 4.3 mmol/L (3.3-5.1); Sodium 140 mmol/L (135-145)
[2022-05-04 11:53] LABS: Influenza A PCR NEGATIVE (Negative); Influenza B PCR NEGATIVE (Negative); Resp Syncy Virus RNA Qual PCR NEGATIVE (Negative); SARS COV2 PCR INHOUSE NEGATIVE (Negative)
== END 2022-05-04 09:11 | disposition home or self-care (01) ==
LOC: HO.10HDL 09:10
PROVIDERS: Visit Provider Internal Medicine
DX: Z20.822 Contact with and (suspected) exposure to COVID-19 (principal); R05.9 Cough, unspecified; R50.9 Fever, unspecified
CPT/HCPCS: 0241U; 36415; 71046; 80048; 81001; 85025; 87086

== ENCOUNTER → 2022-05-09 09:28 | Outpatient (BNVA) | payer OTHER, SELFPAY | PROVIDERS: PCP Internal Medicine; Visit Provider Internal Medicine | DX: I48.19 Other persistent atrial fibrillation (principal); Z51.81 Encounter for therapeutic drug level monitoring; Z79.01 Long term (current) use of anticoagulants | CPT/HCPCS: 85610; 99211 ==

== ENCOUNTER → 2022-05-16 09:20 | Outpatient (BNVA) | payer OTHER, SELFPAY | PROVIDERS: PCP Internal Medicine; Visit Provider Internal Medicine | DX: I48.19 Other persistent atrial fibrillation (principal); Z51.81 Encounter for therapeutic drug level monitoring; Z79.01 Long term (current) use of anticoagulants | CPT/HCPCS: 85610; 99211 ==

== ENCOUNTER → 2022-06-13 09:25 | Outpatient (BNVA) | payer OTHER, SELFPAY | PROVIDERS: PCP Internal Medicine; Visit Provider Internal Medicine | DX: I48.19 Other persistent atrial fibrillation (principal); Z79.01 Long term (current) use of anticoagulants; Z51.81 Encounter for therapeutic drug level monitoring | CPT/HCPCS: 85610; 99211 ==

== ENCOUNTER → 2022-06-27 09:26 | Outpatient (BNVA) | payer OTHER, SELFPAY | PROVIDERS: PCP Internal Medicine; Visit Provider Internal Medicine | DX: I48.19 Other persistent atrial fibrillation (principal); Z51.81 Encounter for therapeutic drug level monitoring; Z79.01 Long term (current) use of anticoagulants | CPT/HCPCS: 85610; 99211 ==

== ENCOUNTER 2022-06-28 07:58 | Outpatient (REF) | payer OTHER, SELFPAY ==
--- NOTE | ~2022-06-28 | XR_ITS ---
EXAMINATION: XR CHEST CLINICAL INFORMATION: Pneumonia COMPARISON: 05/04/2022 TECHNIQUE: 2 views of the chest were obtained. FINDINGS: Lungs are well expanded. Interval resolution of patchy airspace opacity of right upper lobe seen on 05/04/2022. No pleural effusion. Cardiac silhouette has normal size and contour. Pulmonary vascular pattern is normal. The visualized bones are intact. XR/XR chest 2V IMPRESSION: 1. Interval resolution of right upper lobe pneumonia. 2. No acute pulmonary disease.
[2022-06-28 08:09] LABS: MANUAL DIFF FLAG NO
[2022-06-28 08:58] LABS: Basophils Absolute Auto 0.1 X10*3/uL (0.0-0.2); Eosinophils Absolute Auto 0.2 X10*3/uL (0.0-0.4); Eosinophils Percent Auto 2.2 % (0-4); Hematocrit 46.9 % (42.0-52.0); Hemoglobin 15.5 g/dl (14.0-18.0); Imm Gran Abs Auto 0.05 X10*3/uL (0.00-0.03); Imm Gran Pct Auto 0.7 % (0.0-0.4); Lymphocytes Absolute Auto 1.4 X10*3/uL (1.2-4.9); Lymphocytes Percent Auto 20.7 % (20-40); Mean Corpuscular Hemoglobin 28.9 pg (27.0-33.0); Mean Corpuscular Volume 87.5 fL (80.0-98.0); Mean Platelet Volume 11.3 fL (9.4-12.4); Monocytes Absolute Auto 0.7 X10*3/uL (0.1-1.2); Monocytes Percent Auto 10.3 % (2-11); Neutrophils Absolute Auto 4.4 x10*3/uL (2.0-8.3); Neutrophils Percent Auto 65.1 % (45-73); Platelet Count 152 X10*3/uL (160-400); Red Blood Count 5.36 X10*6/uL (4.60-5.80); Red Cell Distribution Width 13.6 % (11.0-16.0); White Blood Count 6.7 X10*3/uL (4.8-10.8)
[2022-06-28 09:26] LABS: Alanine Aminotransferase 31 U/L (0-40); Albumin Level 4.3 g/dL (3.5-5.0); Alkaline Phosphatase 62 U/L (39-117); Anion Gap 11 (12-20); Aspartate Amino Transferase 28 U/L (5-37); Bilirubin Total 0.8 mg/dL (0.0-1.0); Blood Urea Nitrogen 19 mg/dL (9-16); Calcium 9.3 mg/dL (8.4-10.2); Carbon Dioxide 32 mmol/L (22-29); Chloride 102 mmol/L (96-108); Cholesterol 167 mg/dL; Estimated Glomerular Filt Rate 53; Glucose Fasting 104 mg/dL (60-99); HDL Cholesterol 39 mg/dL; LDL Cholesterol Calculated 91 mg/dl; Potassium 4.8 mmol/L (3.3-5.1); Sodium 140 mmol/L (135-145); Total Protein 6.7 g/dL (6.5-8.0); Triglycerides 187 mg/dL
[2022-06-28 09:44] LABS: Prostate Specific Antigen Scr 1.66 ng/mL (<0.05-4.0)
== END 2022-06-28 07:59 | disposition home or self-care (01) ==
LOC: HO.LAB 07:58
PROVIDERS: PCP Internal Medicine; Visit Provider Internal Medicine
DX: Z00.00 Encounter for general adult medical examination without abnormal findings (principal); Z12.5 Encounter for screening for malignant neoplasm of prostate; I48.91 Unspecified atrial fibrillation; Z87.01 Personal history of pneumonia (recurrent)
CPT/HCPCS: 36415; 71046; 80053; 80061; 84153; 85025

== ENCOUNTER → 2022-07-25 09:24 | Outpatient (BNVA) | payer OTHER, SELFPAY | PROVIDERS: PCP Internal Medicine; Visit Provider Internal Medicine | DX: I48.19 Other persistent atrial fibrillation (principal); Z51.81 Encounter for therapeutic drug level monitoring; Z79.01 Long term (current) use of anticoagulants | CPT/HCPCS: 85610; 99211 ==

== ENCOUNTER → 2022-09-05 09:25 | Outpatient (BNVA) | payer OTHER, SELFPAY | PROVIDERS: PCP Internal Medicine; Visit Provider Internal Medicine | DX: I48.19 Other persistent atrial fibrillation (principal); Z51.81 Encounter for therapeutic drug level monitoring; Z79.01 Long term (current) use of anticoagulants | CPT/HCPCS: 85610; 99211 ==

== ENCOUNTER 2022-09-26 10:28 | Outpatient (REF) | payer OTHER, SELFPAY ==
[2022-09-26 14:12] LABS: MANUAL DIFF FLAG NO
[2022-09-26 14:23] LABS: Basophils Absolute Auto 0.1 X10*3/uL (0.0-0.2); Basophils Percent Auto 0.9 % (0-2); Eosinophils Absolute Auto 0.1 X10*3/uL (0.0-0.4); Eosinophils Percent Auto 1.3 % (0-4); Hematocrit 44.8 % (42.0-52.0); Hemoglobin 15.1 g/dl (14.0-18.0); Imm Gran Abs Auto 0.35 X10*3/uL (0.00-0.03); Imm Gran Pct Auto 3.7 % (0.0-0.4); Lymphocytes Absolute Auto 1.4 X10*3/uL (1.2-4.9); Lymphocytes Percent Auto 14.5 % (20-40); Mean Corpuscular HGB Conc 33.7 g/dl (31.0-36.0); Mean Corpuscular Hemoglobin 30.1 pg (27.0-33.0); Mean Corpuscular Volume 89.2 fL (80.0-98.0); Mean Platelet Volume 11.2 fL (9.4-12.4); Monocytes Absolute Auto 0.9 X10*3/uL (0.1-1.2); Monocytes Percent Auto 9.4 % (2-11); Neutrophils Absolute Auto 6.6 x10*3/uL (2.0-8.3); Neutrophils Percent Auto 70.2 % (45-73); Platelet Count 211 X10*3/uL (160-400); Red Blood Count 5.02 X10*6/uL (4.60-5.80); Red Cell Distribution Width 13.4 % (11.0-16.0); White Blood Count 9.4 X10*3/uL (4.8-10.8)
[2022-09-26 14:43] LABS: Alanine Aminotransferase 26 U/L (0-40); Alkaline Phosphatase 71 U/L (39-117); Anion Gap 10 (12-20); Aspartate Amino Transferase 23 U/L (5-37); Bilirubin Total 0.6 mg/dL (0.0-1.0); Blood Urea Nitrogen 21 mg/dL (9-16); Calcium 8.9 mg/dL (8.4-10.2); Carbon Dioxide 27 mmol/L (22-29); Chloride 107 mmol/L (96-108); Estimated Glomerular Filt Rate > 60; Glucose Random 105 mg/dL (60-115); Potassium 4.4 mmol/L (3.3-5.1); Sodium 140 mmol/L (135-145); Total Protein 6.4 g/dL (6.5-8.0)
== END 2022-09-26 10:29 | disposition home or self-care (01) ==
LOC: HO.10HDL 10:28
PROVIDERS: Visit Provider Internal Medicine
DX: I48.91 Unspecified atrial fibrillation (principal); K21.9 Gastro-esophageal reflux disease without esophagitis; N18.9 Chronic kidney disease, unspecified; G47.33 Obstructive sleep apnea (adult) (pediatric)
CPT/HCPCS: 36415; 80053; 85025

== ENCOUNTER → 2022-10-17 08:52 | Outpatient (BNVA) | payer OTHER, SELFPAY | PROVIDERS: PCP Internal Medicine; Visit Provider Internal Medicine | DX: I48.19 Other persistent atrial fibrillation (principal); Z51.81 Encounter for therapeutic drug level monitoring; Z79.01 Long term (current) use of anticoagulants | CPT/HCPCS: 85610; 99211 ==

== ENCOUNTER → 2022-12-04 08:57 | Outpatient (BNVA) | payer OTHER, SELFPAY | PROVIDERS: PCP Internal Medicine; Visit Provider Internal Medicine | DX: I48.19 Other persistent atrial fibrillation (principal); Z51.81 Encounter for therapeutic drug level monitoring; Z79.01 Long term (current) use of anticoagulants | CPT/HCPCS: 85610; 99211 ==

== ENCOUNTER → 2022-12-05 14:36 | Outpatient (BNVA) | payer OTHER, SELFPAY | PROVIDERS: PCP Internal Medicine; Referring Provider Internal Medicine; Visit Provider Internal Medicine Cardiovascular Disease ==

== ENCOUNTER 2023-01-16 09:03 | Outpatient (AMB) | payer OTHER, SELFPAY ==
[2023-01-16 09:08] LABS: Prothrombin Time Whole Bld POC 33.5 sec (11.1-13.5); ~PT, ~INR - Anti Coag Clinic 2.8 (0.9-1.1)
--- NOTE | 2023-01-16 09:14 | MHC.OFFVISCO ---
Intake Intake Visit Reasons: Anticoagulation Allergies No Known Allergies Allergy (Mild, Verified 01/16/23 09:04) N/A Medication List - Last Reconciled 01/16/23 by Oksana Carnes RN bupropion HCl 300 mg PO QAM calcium carbonate 1,000 mg PO DAILY cholecalciferol (vitamin D3) 50 mcg PO DAILY clorazepate dipotassium 7.5 mg PO TID comp.stocking,thigh,long,large As directed, 30-40 mm Hg pressure compress.stocking,knee,reg,lrg As directed magnesium 500 mg PO DAILY metoprolol tartrate 50 mg PO BID multivitamin 1 tab PO DAILY omega-3 fatty acids (Fish Oil Concentrate) 1,000 mg PO DAILY pantoprazole 40 mg PO DAILY simvastatin 20 mg PO BEDTIME warfarin See Protocol 12.5MG X 3DAYS/ 10MG X4DAYS; Nursing Note NO CP,SOB,DIET/MED CHANGES,FALLS OR SX OF BLEEDING. CONTINUE PRESENT DOSE AND FOLLOW-UP IN 6 WEEKS GOOD UNDERSTANDING OF DOSING INSTR. Anti-Coag Initial Assessment Social Hx Patient Tobacco Use Status: Never used Tobacco alcohol intake: never Coding Level of Care Code Est Patient Level 1 Diagnoses Current use of anticoagulant therapy Z79.01 Assessment & Plan Assessment & Plan (1) Current use of anticoagulant therapy: Code(s): Z79.01 - shelter (current) use of anticoagulants Category: Medical
== END 2023-01-16 09:15 | disposition home or self-care (01) ==
LOC: HO.ACS 09:03
PROVIDERS: PCP Internal Medicine; Visit Provider Internal Medicine
DX: Z79.01 Long term (current) use of anticoagulants (principal)

== ENCOUNTER → 2023-01-16 09:03 | Outpatient (BNVA) | payer OTHER, SELFPAY | PROVIDERS: PCP Internal Medicine; Visit Provider Internal Medicine | DX: Z51.81 Encounter for therapeutic drug level monitoring (principal); Z79.01 Long term (current) use of anticoagulants; I48.19 Other persistent atrial fibrillation | CPT/HCPCS: 85610; 99211 ==

== ENCOUNTER 2023-02-22 13:32 | Outpatient (REF) | payer OTHER, SELFPAY ==
[2023-02-22 13:45] LABS: MANUAL DIFF FLAG NO
[2023-02-22 14:47] LABS: Basophils Absolute Auto 0.1 X10*3/uL (0.0-0.2); Basophils Percent Auto 0.8 % (0-2); Eosinophils Absolute Auto 0.1 X10*3/uL (0.0-0.4); Eosinophils Percent Auto 1.5 % (0-4); Hematocrit 45.4 % (42.0-52.0); Hemoglobin 15.3 g/dl (14.0-18.0); Imm Gran Abs Auto 0.04 X10*3/uL (0.00-0.03); Imm Gran Pct Auto 0.7 % (0.0-0.4); Lymphocytes Absolute Auto 1.4 X10*3/uL (1.2-4.9); Lymphocytes Percent Auto 22.5 % (20-40); Mean Corpuscular HGB Conc 33.7 g/dl (31.0-36.0); Mean Corpuscular Hemoglobin 29.7 pg (27.0-33.0); Mean Corpuscular Volume 88.2 fL (80.0-98.0); Mean Platelet Volume 10.9 fL (9.4-12.4); Monocytes Absolute Auto 0.6 X10*3/uL (0.1-1.2); Monocytes Percent Auto 9.7 % (2-11); Neutrophils Percent Auto 64.8 % (45-73); Platelet Count 160 X10*3/uL (160-400); Red Blood Count 5.15 X10*6/uL (4.60-5.80); Red Cell Distribution Width 13.2 % (11.0-16.0); White Blood Count 6.1 X10*3/uL (4.8-10.8)
[2023-02-22 15:07] LABS: Appearance Urine Clear; Color Urine Yellow; Glucose Urine UA Negative (Negative); Leukocyte Esterase Urine Negative (Negative); Nitrite Urine Negative (Negative); PH 6.5 (5.0-9.0); Specific Gravity - Urine 1.015 (1.005-1.025); Urine Blood Negative (Negative); Urine Ketones Negative (Negative); Urine Protein Negative (Neg-Trace)
[2023-02-22 15:13] LABS: Bacteria Urine None Seen (None Seen); Hyaline Casts Urine 0-2 /LPF (0-2); RBC Urine 0-2 /HPF (0-2); Squamous Epithelial Cell Urine 0-2 /HPF (0-2); WBC Urine 0-5 /HPF (0-5)
[2023-02-22 15:20] LABS: Alanine Aminotransferase 17 U/L (0-40); Albumin Level 4.3 g/dL (3.5-5.0); Alkaline Phosphatase 58 U/L (39-117); Anion Gap 11 (12-20); Aspartate Amino Transferase 19 U/L (5-37); Bilirubin Total 0.7 mg/dL (0.0-1.0); Blood Urea Nitrogen 21 mg/dL (9-16); Calcium 9.6 mg/dL (8.4-10.2); Carbon Dioxide 30 mmol/L (22-29); Chloride 104 mmol/L (96-108); Estimated Glomerular Filt Rate 49; Glucose Random 89 mg/dL (60-115); Potassium 4.8 mmol/L (3.3-5.1); Sodium 140 mmol/L (135-145); Total Protein 6.8 g/dL (6.5-8.0)
== END 2023-02-22 13:33 | disposition home or self-care (01) ==
LOC: HO.LAB 13:32
PROVIDERS: PCP Internal Medicine; Visit Provider Internal Medicine
DX: R10.9 Unspecified abdominal pain (principal); I48.91 Unspecified atrial fibrillation; R60.0 Localized edema; I12.9 Hypertensive chronic kidney disease with stage 1 through stage 4 chronic kidney disease, or unspecified chronic kidney disease; N18.9 Chronic kidney disease, unspecified
CPT/HCPCS: 36415; 80053; 81001; 85025; 86140; 87086

== ENCOUNTER 2023-02-27 09:27 | Outpatient (AMB) | payer OTHER, SELFPAY ==
--- NOTE | 2023-02-27 09:40 | MHC.OFFVISCO ---
Intake Intake Visit Reasons: Anticoagulation Allergies No Known Allergies Allergy (Mild, Verified 02/27/23 09:36) N/A Medication List - Last Reconciled 02/27/23 by Karol Mayen RN bupropion HCl 300 mg PO QAM calcium carbonate 1,000 mg PO DAILY cholecalciferol (vitamin D3) 50 mcg PO DAILY clorazepate dipotassium 7.5 mg PO TID comp.stocking,thigh,long,large As directed, 30-40 mm Hg pressure compress.stocking,knee,reg,lrg As directed magnesium 500 mg PO DAILY metoprolol tartrate 50 mg PO BID multivitamin 1 tab PO DAILY omega-3 fatty acids (Fish Oil Concentrate) 1,000 mg PO DAILY pantoprazole 40 mg PO DAILY simvastatin 20 mg PO BEDTIME warfarin See Protocol 12.5MG X 3DAYS/ 10MG X4DAYS; Nursing Note INR 3.7-? out of therapeutic range Medications and supplements reviewed Patient status: no changes, increased stress Medications or supplements: no changes Diet: same Denies any signs and symptoms of bleeding or clotting or unusual bruising Bleeding, bruising, clotting discussed Nutritional guidance given: eat dark greens to lower inr, no reds for 2 days Dose: pt states already took warfarin today, requests 7.5mg tomm as prev he has dropped his inr with lower dosing. then will cont reg dosing F/U INR Date : 2 week f/u recommended, ref earlier appt than 3 weeks Patient verbalizing understanding of instructions given. 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
[2023-02-27 09:42] LABS: Prothrombin Time Whole Bld POC 44.9 sec (11.1-13.5); ~PT, ~INR - Anti Coag Clinic 3.7 (0.9-1.1)
== END 2023-02-27 09:49 | disposition home or self-care (01) ==
LOC: HO.ACS 09:27
PROVIDERS: PCP Internal Medicine; Visit Provider Internal Medicine
DX: Z79.01 Long term (current) use of anticoagulants (principal)

== ENCOUNTER → 2023-02-27 09:27 | Outpatient (BNVA) | payer OTHER, SELFPAY | PROVIDERS: PCP Internal Medicine; Visit Provider Internal Medicine | DX: I48.19 Other persistent atrial fibrillation (principal); Z51.81 Encounter for therapeutic drug level monitoring; Z79.01 Long term (current) use of anticoagulants | CPT/HCPCS: 85610; 99211 ==

== ENCOUNTER 2023-03-15 07:11 | Outpatient (REF) | payer OTHER, SELFPAY ==
--- NOTE | ~2023-03-15 | CT_ITS ---
EXAMINATION: CT ABDOMEN AND PELVIS WITHOUT CONTRAST CLINICAL INFORMATION: Abdominal pain; history of diverticulosis. COMPARISON: CT abdomen and pelvis dated 09/19/2020. TECHNIQUE: Multidetector volumetric imaging was performed from the superior aspect of the liver through the pubic symphysis. Sagittal and coronal reformatted images were obtained on the technologist's workstation. This CT examination was performed using dose optimization techniques as appropriate, variously including the following: *Automated exposure control *Adjustment of mA and/or kV according to patient size (this includes techniques or standardized protocols for targeted exams where dose is matched to indication/reason for exam; i.e. extremities or head) *Use of iterative reconstruction technique DLP: 965 mGy-cm FINDINGS: LUNG BASES: The visualized lung bases are unremarkable. There are coronary artery atherosclerotic calcifications. LIVER, GALLBLADDER, AND BILIARY TREE: The liver is normal in size, shape, and attenuation. No focal hepatic lesion or biliary ductal dilatation is present. The gallbladder is unremarkable with no evidence of radiopaque gallstones, gallbladder wall thickening, or obvious pericholecystic inflammatory changes. PANCREAS: Unremarkable. SPLEEN: Unremarkable. ADRENAL GLANDS: Unremarkable. KIDNEYS AND URETERS: The kidneys are normal in size, shape, and attenuation. No hydronephrosis, hydroureter, or calculi seen. There is mild bilateral perinephric stranding. BLADDER: Unremarkable. GASTROINTESTINAL TRACT: There is moderate diverticulosis, without acute diverticulitis. There is a mild stool burden. No obstruction, free intraperitoneal air or abscess is seen. There is no focal bowel wall thickening. The vermiform appendix appears normal. ABDOMINAL WALL: There is a small fat-containing umbilical hernia. There is a further small fat-containing supraumbilical hernia defect, with a diameter of 1.0 cm. LYMPH NODES: Normal. VASCULAR: There is mild aortoiliac atherosclerotic calcification. No abdominal aortic aneurysm is seen. PELVIC VISCERA: The prostate and seminal vesicles are unremarkable. OSSEOUS STRUCTURES: There is multi-level marked lower thoracic and mild lumbar spondylosis. At L4-L5 and L5-S1, there is degenerative disc disease, with vacuum phenomenon. No acute or aggressive osseous finding is noted. CT/CT abdomen pelvis wo IV con IMPRESSION: 1. There is moderate diverticulosis, without acute diverticulitis. 2. No urinary calculus or obstruction is seen. 3. There is no abdominopelvic mass, free fluid or lymphadenopathy. 4. There are abdominal wall hernia defects, as detailed. 5. There are degenerative changes of the spine. 6. There are coronary artery atherosclerotic calcifications. Fleischner guidelines were followed.
[2023-03-15] MEDS: Barium Sulfate Oral (Berry) 450 ML ORAL.SUSP 900 ML PO (09:47)
== END 2023-03-15 07:12 | disposition home or self-care (01) ==
LOC: HO.CT 07:11
PROVIDERS: PCP Internal Medicine; Visit Provider Internal Medicine
DX: R10.84 Generalized abdominal pain (principal); K57.92 Diverticulitis of intestine, part unspecified, without perforation or abscess without bleeding
CPT/HCPCS: 74176

== ENCOUNTER 2023-03-18 09:37 | Outpatient (AMB) | payer OTHER, SELFPAY ==
[2023-03-18 09:51] LABS: ~PT, ~INR - Anti Coag Clinic 3.2 (0.9-1.1)
--- NOTE | 2023-03-18 09:53 | MHC.OFFVISCO ---
Intake Intake Visit Reasons: Anticoagulation Allergies No Known Allergies Allergy (Mild, Verified 03/18/23 09:46) N/A Medication List - Last Reconciled 03/18/23 by Karol Mayen RN bupropion HCl 300 mg PO QAM calcium carbonate 1,000 mg PO DAILY cholecalciferol (vitamin D3) 50 mcg PO DAILY clorazepate dipotassium 7.5 mg PO TID comp.stocking,thigh,long,large As directed, 30-40 mm Hg pressure compress.stocking,knee,reg,lrg As directed magnesium 500 mg PO DAILY metoprolol tartrate 50 mg PO BID multivitamin 1 tab PO DAILY omega-3 fatty acids (Fish Oil Concentrate) 1,000 mg PO DAILY pantoprazole 40 mg PO DAILY simvastatin 20 mg PO BEDTIME warfarin See Protocol 12.5MG X 3DAYS/ 10MG X4DAYS; Nursing Note INR 3.2-?? out of therapeutic range Medications and supplements reviewed Patient status: pt c.o allergy symptoms/seasonal Medications or supplements: coricidin hbp for cold/flu- aware raises per micromedex, states not taking Diet: good Denies any signs and symptoms of bleeding or clotting or unusual bruising Bleeding, bruising, clotting discussed Nutritional guidance given: eat dark greens to lower inr Dose: 12.5mg x 2, 10mg x 5 F/U INR Date : pt req 4 weeks? Patient verbalizing understanding of instructions given. 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
== END 2023-03-18 10:00 | disposition home or self-care (01) ==
LOC: HO.ACS 09:37
PROVIDERS: PCP Internal Medicine; Visit Provider Internal Medicine
DX: Z79.01 Long term (current) use of anticoagulants (principal)

== ENCOUNTER → 2023-03-18 09:37 | Outpatient (BNVA) | payer OTHER, SELFPAY | PROVIDERS: PCP Internal Medicine; Visit Provider Internal Medicine | DX: I48.19 Other persistent atrial fibrillation (principal); Z51.81 Encounter for therapeutic drug level monitoring; Z79.01 Long term (current) use of anticoagulants | CPT/HCPCS: 85610; 99211 ==

== ENCOUNTER 2023-04-17 08:53 | Outpatient (AMB) | payer OTHER, SELFPAY ==
[2023-04-17 09:00] LABS: Prothrombin Time Whole Bld POC 35.8 sec (11.1-13.5)
--- NOTE | 2023-04-17 09:00 | MHC.OFFVISCO ---
Intake Intake Visit Reasons: Anticoagulation Allergies No Known Allergies Allergy (Mild, Verified 04/17/23 08:54) N/A Medication List - Last Reconciled 04/17/23 by Karol Mayen RN bupropion HCl 300 mg PO QAM calcium carbonate 1,000 mg PO DAILY cholecalciferol (vitamin D3) 50 mcg PO DAILY clorazepate dipotassium 7.5 mg PO TID comp.stocking,thigh,long,large As directed, 30-40 mm Hg pressure compress.stocking,knee,reg,lrg As directed magnesium 500 mg PO DAILY metoprolol tartrate 50 mg PO BID multivitamin 1 tab PO DAILY omega-3 fatty acids (Fish Oil Concentrate) 1,000 mg PO DAILY pantoprazole 40 mg PO DAILY simvastatin 20 mg PO BEDTIME warfarin See Protocol 12.5MG X 3DAYS/ 10MG X4DAYS; Nursing Note INR: 3.0- in therapeutic range Medications and supplements reviewed- no changes No changes in health, diet, medications, or supplements, Denies any signs and symptoms of bleeding or bruising or clotting. Bleeding, bruising, clotting discussed Nutritional guidance given - eat greens to lower inr Dose: pt states has been taking 10 mg daily x 4 weeks F/U INR: pt ref earlier appt than 4 weeks Patient verbalizes understanding of instructions given Anti-Coag Initial Assessment Social Hx Patient Tobacco Use Status: Never used Tobacco alcohol intake: never Coding Level of Care Code Est Patient Level 1 Diagnoses Current use of anticoagulant therapy Z79.01 Assessment & Plan Assessment & Plan (1) Current use of anticoagulant therapy: Code(s): Z79.01 - intermediate (current) use of anticoagulants Category: Medical
== END 2023-04-17 09:16 | disposition home or self-care (01) ==
LOC: HO.ACS 08:53
PROVIDERS: PCP Internal Medicine; Visit Provider Internal Medicine
DX: Z79.01 Long term (current) use of anticoagulants (principal)

== ENCOUNTER → 2023-04-17 08:53 | Outpatient (BNVA) | payer OTHER, SELFPAY | PROVIDERS: PCP Internal Medicine; Visit Provider Internal Medicine | DX: I48.19 Other persistent atrial fibrillation (principal); Z51.81 Encounter for therapeutic drug level monitoring; Z79.01 Long term (current) use of anticoagulants | CPT/HCPCS: 85610; 99211 ==

== ENCOUNTER 2023-05-15 09:23 | Outpatient (AMB) | payer OTHER, SELFPAY ==
--- NOTE | 2023-05-15 09:37 | MHC.OFFVISCO ---
Intake Intake Visit Reasons: Anticoagulation Allergies No Known Allergies Allergy (Mild, Verified 05/15/23 09:32) N/A Medication List - Last Reconciled 05/15/23 by Karol Mayen RN bupropion HCl 300 mg PO QAM calcium carbonate 1,000 mg PO DAILY cholecalciferol (vitamin D3) 50 mcg PO DAILY clorazepate dipotassium 7.5 mg PO TID comp.stocking,thigh,long,large As directed, 30-40 mm Hg pressure compress.stocking,knee,reg,lrg As directed magnesium 500 mg PO DAILY metoprolol tartrate 50 mg PO BID multivitamin 1 tab PO DAILY omega-3 fatty acids (Fish Oil Concentrate) 1,000 mg PO DAILY pantoprazole 40 mg PO DAILY simvastatin 20 mg PO BEDTIME warfarin See Protocol 12.5MG X 3DAYS/ 10MG X4DAYS; Nursing Note INR 1.5-? out of therapeutic range of 2-3 Medications and supplements reviewed Patient status: pt with cold symptoms for approx 5 days Medications or supplements: no changes taking tylenol cold for last 3 days tid- pt self dosed self and took only 5mg warfarin mon, e, sat due to tylenol usage Diet: appetite good Denies any signs and symptoms of bleeding or clotting or unusual bruising Bleeding, bruising, clotting discussed Nutritional guidance given: no greens for 2 days, eat reds to raise inr Dose: 12.5mg today then cont prev dosing 10mg x 7 F/U INR Date : ??pt ref ealier appt than 2 weeks Patient verbalizing understanding of instructions given. pcp office, dr chavarria called with low inr, dosing and f/u appt - spoke to nora at 0948 Anti-Coag Initial Assessment Social Hx Patient Tobacco Use Status: Never used Tobacco alcohol intake: never Coding Level of Care Code Est Patient Level 1
[2023-05-15 09:38] LABS: ~PT, ~INR - Anti Coag Clinic 1.5 (0.9-1.1)
== END 2023-05-15 09:49 | disposition home or self-care (01) ==
LOC: HO.ACS 09:23
PROVIDERS: PCP Internal Medicine; Visit Provider Internal Medicine
DX: Z79.01 Long term (current) use of anticoagulants (principal)

== ENCOUNTER → 2023-05-15 09:23 | Outpatient (BNVA) | payer OTHER, SELFPAY | PROVIDERS: PCP Internal Medicine; Visit Provider Internal Medicine | DX: I48.19 Other persistent atrial fibrillation (principal); Z51.81 Encounter for therapeutic drug level monitoring; Z79.01 Long term (current) use of anticoagulants | CPT/HCPCS: 85610; 99211 ==

== ENCOUNTER 2023-05-28 08:32 | Outpatient (AMB) | payer OTHER, SELFPAY ==
[2023-05-28 08:44] LABS: Prothrombin Time Whole Bld POC 37.7 sec (11.1-13.5); ~PT, ~INR - Anti Coag Clinic 3.1 (0.9-1.1)
--- NOTE | 2023-05-28 08:50 | MHC.OFFVISCO ---
Intake Intake Visit Reasons: Anticoagulation Allergies No Known Allergies Allergy (Mild, Verified 05/28/23 08:35) N/A Medication List - Last Reconciled 05/28/23 by Lola Davies RN bupropion HCl 300 mg PO QAM calcium carbonate 1,000 mg PO DAILY cholecalciferol (vitamin D3) 50 mcg PO DAILY clorazepate dipotassium 7.5 mg PO TID comp.stocking,thigh,long,large As directed, 30-40 mm Hg pressure compress.stocking,knee,reg,lrg As directed magnesium 500 mg PO DAILY metoprolol tartrate 50 mg PO BID multivitamin 1 tab PO DAILY omega-3 fatty acids (Fish Oil Concentrate) 1,000 mg PO DAILY pantoprazole 40 mg PO DAILY simvastatin 20 mg PO BEDTIME warfarin See Protocol 12.5MG X 3DAYS/ 10MG X4DAYS; Nursing Note INR: 3.1 ALMOST therapeutic range Medications and supplements reviewed- He had been ill with a URI previous weeks and was taking tylenol and cut his own dose down lowering the INR previosu visit, feels better now No changes in health, diet, medications, or supplements, Denies any signs and symptoms of bleeding or bruising or clotting. Bleeding, bruising, clotting discussed Nutritional guidance given - baca greens provides more vit k than raw - review food list weekly Dose: pt resume 12.5mg x 1 day/ 10mg x 6 days F/U INR: 4 weeks - refused sooner appointment Patient verbalizes understanding of instructions given Anti-Coag Initial Assessment Social Hx Patient Tobacco Use Status: Never used Tobacco alcohol intake: never Coding Level of Care Code Est Patient Level 1 Diagnoses Current use of anticoagulant therapy Z79.01 Results AMB INR Fingerstick AMB INR Fingerstick 3.1 Last Edit by Lola Davies RN on 05/28/23 08:45 MANUAL ENTRY Assessment & Plan Assessment & Plan (1) Current use of anticoagulant therapy: Code(s): Z79.01 - [facility] (current) use of anticoagulants Category: Medical
== END 2023-05-28 08:53 | disposition home or self-care (01) ==
LOC: HO.ACS 08:32
PROVIDERS: PCP Internal Medicine; Visit Provider Internal Medicine
DX: Z79.01 Long term (current) use of anticoagulants (principal)

== ENCOUNTER → 2023-05-28 08:32 | Outpatient (BNVA) | payer OTHER, SELFPAY | PROVIDERS: PCP Internal Medicine; Visit Provider Internal Medicine | DX: I48.19 Other persistent atrial fibrillation (principal); Z51.81 Encounter for therapeutic drug level monitoring; Z79.01 Long term (current) use of anticoagulants | CPT/HCPCS: 85610; 99211 ==

== ENCOUNTER 2023-05-31 17:03 | Outpatient (REF) | payer OTHER, SELFPAY ==
[2023-05-31 17:50] LABS: Influenza A PCR NEGATIVE (Negative); Influenza B PCR NEGATIVE (Negative); Resp Syncy Virus RNA Qual PCR NEGATIVE (Negative); SARS COV2 PCR INHOUSE POSITIVE (Negative)
== END 2023-05-31 17:04 | disposition home or self-care (01) ==
LOC: HO.LNP 17:03
PROVIDERS: Visit Provider Internal Medicine
DX: Z11.52 Encounter for screening for COVID-19 (principal); Z20.822 Contact with and (suspected) exposure to COVID-19; R05.9 Cough, unspecified; R50.9 Fever, unspecified
CPT/HCPCS: 0241U

== ENCOUNTER → 2023-06-03 12:12 | Outpatient (BNVA) | payer OTHER, SELFPAY | PROVIDERS: PCP Internal Medicine; Visit Provider Internal Medicine ==

== ENCOUNTER 2023-06-05 13:10 | Outpatient (AMB) | payer OTHER, SELFPAY ==
--- NOTE | 2023-06-05 13:16 | MHC.OFFVISCO ---
Intake Intake Visit Reasons: Anticoagulation Allergies No Known Allergies Allergy (Mild, Verified 06/05/23 13:11) N/A Medication List - Last Reconciled 06/05/23 by Karol Mayen RN bupropion HCl 300 mg PO QAM calcium carbonate 1,000 mg PO DAILY cholecalciferol (vitamin D3) 50 mcg PO DAILY clorazepate dipotassium 7.5 mg PO TID comp.stocking,thigh,long,large As directed, 30-40 mm Hg pressure compress.stocking,knee,reg,lrg As directed magnesium 500 mg PO DAILY metoprolol tartrate 50 mg PO BID multivitamin 1 tab PO DAILY omega-3 fatty acids (Fish Oil Concentrate) 1,000 mg PO DAILY pantoprazole 40 mg PO DAILY simvastatin 20 mg PO BEDTIME warfarin See Protocol 12.5MG X 3DAYS/ 10MG X4DAYS; Nursing Note INR: 2.0- in therapeutic range of 2-3 Medications and supplements reviewed No changes in health, diet, medications, or supplements, Denies any signs and symptoms of bleeding or bruising or clotting. Bleeding, bruising, clotting discussed Nutritional guidance given - no greens for 2 days, eat reds to raise Dose: 10mg x 6, 12.5mg x 1 F/U INR: pt ref earlier appt than 06/25/22 Patient verbalizes understanding of instructions given pt states covid positive last week, completed paxlovid course yesterday states good appetite Anti-Coag Initial Assessment Social Hx Patient Tobacco Use Status: Never used Tobacco alcohol intake: never Coding Level of Care Code Est Patient Level 1 Diagnoses Current use of anticoagulant therapy Z79.01 Assessment & Plan Assessment & Plan (1) Current use of anticoagulant therapy: Code(s): Z79.01 - long-term (current) use of anticoagulants Category: Medical Medications: Changed From warfarin See Protocol 12.5MG X 3DAYS/ 10MG X4DAYS; 90 tabs 0RF To warfarin See Protocol 12.5MG X 1DAY/ 10MG X6DAYS; 90 tabs 0RF
[2023-06-05 13:17] LABS: Prothrombin Time Whole Bld POC 23.8 sec (11.1-13.5)
== END 2023-06-05 13:22 | disposition home or self-care (01) ==
LOC: HO.ACS 13:10
PROVIDERS: PCP Internal Medicine; Visit Provider Internal Medicine
DX: Z79.01 Long term (current) use of anticoagulants (principal)

== ENCOUNTER → 2023-06-05 13:10 | Outpatient (BNVA) | payer OTHER, SELFPAY | PROVIDERS: PCP Internal Medicine; Visit Provider Internal Medicine | DX: I48.19 Other persistent atrial fibrillation (principal); Z51.81 Encounter for therapeutic drug level monitoring; Z79.01 Long term (current) use of anticoagulants | CPT/HCPCS: 85610; 99211 ==

== ENCOUNTER 2023-06-11 14:50 | Outpatient (REF) | payer OTHER, SELFPAY | END 2023-06-11 14:51 | disposition home or self-care (01) | LOC: HO.XRAY 14:50 | PROVIDERS: PCP Internal Medicine; Visit Provider Internal Medicine | DX: R05.9 Cough, unspecified (principal); Z86.16 Personal history of COVID-19 | CPT/HCPCS: 71046 ==

== ENCOUNTER 2023-06-25 08:02 | Outpatient (AMB) | payer OTHER, SELFPAY ==
--- NOTE | 2023-06-25 08:12 | MHC.OFFVISCO ---
Intake Intake Visit Reasons: Anticoagulation Allergies No Known Allergies Allergy (Mild, Verified 06/25/23 08:08) N/A Medication List - Last Reconciled 06/25/23 by Karol Mayen RN bupropion HCl 300 mg PO QAM calcium carbonate 1,000 mg PO DAILY cholecalciferol (vitamin D3) 50 mcg PO DAILY clorazepate dipotassium 7.5 mg PO TID comp.stocking,thigh,long,large As directed, 30-40 mm Hg pressure compress.stocking,knee,reg,lrg As directed magnesium 500 mg PO DAILY metoprolol tartrate 50 mg PO BID multivitamin 1 tab PO DAILY omega-3 fatty acids (Fish Oil Concentrate) 1,000 mg PO DAILY pantoprazole 40 mg PO DAILY simvastatin 20 mg PO BEDTIME warfarin See Protocol 12.5MG X 1DAY/ 10MG X6DAYS; Nursing Note INR: 2.1- in therapeutic range of 2-3 Medications and supplements reviewed- no changes No changes in health, diet, medications, or supplements, Denies any signs and symptoms of bleeding or bruising or clotting. Bleeding, bruising, clotting discussed Nutritional guidance given Dose: pt insists he has been taking 12.5mg x 2, 10mg x 5 F/U INR: pt ref earlier appt than 6 weeks Patient verbalizes understanding of instructions given Anti-Coag Initial Assessment Social Hx Patient Tobacco Use Status: Never used Tobacco alcohol intake: never Coding Level of Care Code Est Patient Level 1 Diagnoses Current use of anticoagulant therapy Z79.01 Results AMB INR Fingerstick AMB INR Fingerstick 2.1 Last Edit by Karol Mayen RN on 06/25/23 08:14 Assessment & Plan Assessment & Plan (1) Current use of anticoagulant therapy: Code(s): 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
[2023-06-25 08:16] LABS: Prothrombin Time Whole Bld POC 25.4 sec (11.1-13.5); ~PT, ~INR - Anti Coag Clinic 2.1 (0.9-1.1)
== END 2023-06-25 08:27 | disposition home or self-care (01) ==
LOC: HO.ACS 08:02
PROVIDERS: PCP Internal Medicine; Visit Provider Internal Medicine
DX: Z79.01 Long term (current) use of anticoagulants (principal)

== ENCOUNTER → 2023-06-25 08:02 | Outpatient (BNVA) | payer OTHER, SELFPAY | PROVIDERS: PCP Internal Medicine; Visit Provider Internal Medicine | DX: I48.19 Other persistent atrial fibrillation (principal); Z51.81 Encounter for therapeutic drug level monitoring; Z79.01 Long term (current) use of anticoagulants | CPT/HCPCS: 85610; 99211 ==

== ENCOUNTER 2023-08-14 08:09 | Outpatient (AMB) | payer OTHER, SELFPAY ==
--- NOTE | 2023-08-14 08:42 | MHC.OFFVISCO ---
Intake Intake Visit Reasons: Anticoagulation Allergies No Known Allergies Allergy (Mild, Verified 08/14/23 08:36) N/A Medication List - Last Reconciled 08/14/23 by Karol Mayen RN bupropion HCl 300 mg PO QAM calcium carbonate 1,000 mg PO DAILY cholecalciferol (vitamin D3) 50 mcg PO DAILY clorazepate dipotassium 7.5 mg PO TID comp.stocking,thigh,long,large As directed, 30-40 mm Hg pressure compress.stocking,knee,reg,lrg As directed magnesium 500 mg PO DAILY metoprolol tartrate 50 mg PO BID multivitamin 1 tab PO DAILY omega-3 fatty acids (Fish Oil Concentrate) 1,000 mg PO DAILY pantoprazole 40 mg PO DAILY simvastatin 20 mg PO BEDTIME warfarin See Protocol 12.5MG X 1DAY/ 10MG X6DAYS; Nursing Note INR: 2.9- in therapeutic range of 2-3 Medications and supplements reviewed- no changes No changes in health, diet, medications, or supplements, Denies any signs and symptoms of bleeding or bruising or clotting. Bleeding, bruising, clotting discussed Nutritional guidance given Dose: 12.5mg x 2, 10mg x 5 F/U INR: pt req 6 weeks Patient verbalizes understanding of instructions given Anti-Coag Initial Assessment Social Hx Patient Tobacco Use Status: Never used Tobacco alcohol intake: never Coding Level of Care Code Est Patient Level 1 Diagnoses Current use of anticoagulant therapy Z79.01 Assessment & Plan Assessment & Plan (1) Current use of anticoagulant therapy: Code(s): Z79.01 - [facility] (current) use of anticoagulants Category: Medical Medications: Changed From warfarin See Protocol 12.5MG X 1DAY/ 10MG X6DAYS; 90 tabs 0RF To warfarin See Protocol 12.5MG X 2DAY/ 10MG X5DAYS; 90 tabs 0RF
[2023-08-14 08:43] LABS: Prothrombin Time Whole Bld POC 34.3 sec (11.1-13.5); ~PT, ~INR - Anti Coag Clinic 2.9 (0.9-1.1)
== END 2023-08-14 08:53 | disposition home or self-care (01) ==
LOC: HO.ACS 08:09
PROVIDERS: PCP Internal Medicine; Visit Provider Internal Medicine
DX: Z79.01 Long term (current) use of anticoagulants (principal)

== ENCOUNTER → 2023-08-14 08:09 | Outpatient (BNVA) | payer OTHER, SELFPAY | PROVIDERS: PCP Internal Medicine; Visit Provider Internal Medicine | DX: I48.19 Other persistent atrial fibrillation (principal); Z51.81 Encounter for therapeutic drug level monitoring; Z79.01 Long term (current) use of anticoagulants | CPT/HCPCS: 85610; 99211 ==

== ENCOUNTER 2023-09-03 14:32 | Outpatient (AMB) | payer OTHER, SELFPAY ==
[2023-09-03 14:59] VITALS: BP 130/70; PULSE 70; BMI 39.3
--- NOTE | 2023-09-03 14:59 | MHC.OFFVIS ---
Intake Vital Signs 09/03/23 14:59 Height 6 ft 1 in Weight 297 lb 9.985 oz BMI 39.3 BP 130/70 Blood Pressure Location Lt brachial Position Sitting Pulse 70 Pulse Source Monitor Intake Visit Reasons: 6m follow up (KM) Private Detective Required: No Allergies No Known Allergies Allergy (Mild, Verified 09/03/23 15:02) N/A Medication List - Last Reconciled 09/03/23 by Ruthann Jonas, CRICKET-C bupropion HCl 300 mg PO QAM calcium carbonate 1,000 mg PO DAILY cholecalciferol (vitamin D3) 50 mcg PO DAILY clorazepate dipotassium 7.5 mg PO TID comp.stocking,thigh,long,large As directed, 30-40 mm Hg pressure compress.stocking,knee,reg,lrg As directed magnesium 500 mg PO DAILY metoprolol tartrate 50 mg PO BID multivitamin 1 tab PO DAILY omega-3 fatty acids (Fish Oil Concentrate) 1,000 mg PO DAILY pantoprazole 40 mg PO DAILY simvastatin 20 mg PO BEDTIME warfarin See Protocol 12.5MG X 2DAY/ 10MG X5DAYS; HPI 6m follow up (KM) HPI Details Steph is a 68 yo male with PMH of sleep apnea, chronic atrial fibrillation who presents for follow-up. Today he reports that his CPAP machine broke down approximately 3 weeks ago. He has requesting a new prescription for his machine. Without CPAP he has been noticing increasing daytime fatigue and not sleeping well during the night. He denies any heart palpitations with his chronic atrial fibrillation. He follows with the [facility] for his Coumadin. No bleeding issues reported. No chest discomfort at rest or with activity. No shortness of breath, lightheadedness, presyncope, syncope, falls. No PND, orthopnea or edema. Taking meds as directed. [facility], [facility] Medical History Diverticulitis PAF (paroxysmal atrial fibrillation) Current use of anticoagulant therapy Surgical History No pertinent past surgical history Family History Mother Acute leukemia Father CVD (cardiovascular disease) Heart attack Social History Alcohol intake: never Patient Tobacco Use Status: Never used Tobacco Review of Systems Const All systems reviewed & are unremarkable except as noted in HPI and below ENT Denies dizziness Card Denies chest pain, Denies chest pain at rest, Denies chest pain with activity, Denies rapid heart rate, Denies pedal edema, Denies edema, Denies leg edema, Denies lightheadedness, Denies palpitations, Denies dyspnea, Denies dyspnea on exertion and Denies orthopnea Resp Details: not sleeping well due to CPAP machine not working Denies cough, Denies dyspnea and Denies dyspnea on exertion GI Denies hematochezia and Denies change in stool character Musc Denies abnormal gait, Denies limited range of motion, Denies muscle cramps, Denies muscle weakness, Denies numbness, Denies radiating pain into limb, Denies stiffness and Denies tingling Neuro Denies abnormal gait, Denies dizziness, Denies numbness and Denies tingling Endo Denies palpitations Physical Exam Vital Signs: Last Vital Signs Pulse 70 09/03/23 14:59 BP 130/70 09/03/23 14:59 BMI result Body Mass Index 39.3 Const General: cooperative, healthy appearing, comfortable and no acute distress Orientation/consciousness: patient oriented x3 Neck Neck: Yes normal visual inspection and Yes no JVD Resp Effort & Inspection: normal respiratory effort Auscultation: clear to auscultation bilaterally, no crackles, no rales, no rhonchi and no wheezes Cardio Jugular venous distension: no JVD Rate: regular rate Rhythm: regular rhythm Heart sounds: S1 normal heart sound present, S2 normal heart sound present, no murmurs and no rubs Neuro General: patient oriented x3 Extrem General: Yes normal to inspection and No no pedal edema Psych Appearance: grossly normal Mental Status: mental status grossly normal Speech and movement: Normal speech and movement present Office Procedures EKG Details: Atrial fibrillation, left anterior fascicular block, left ventricular hypertrophy, QRS widening, can not exclude possible lateral infarct, rate 70, QTC 434 millisecond [id number], Complete Assessment & Plan Assessment & Plan (1) Permanent atrial fibrillation: Code(s): I48.21 - Permanent atrial fibrillation Plan: History of chronic atrial fibrillation. He tolerates without symptoms. He is on metoprolol 50 mg b.i.d. for heart rate control. EKG done today showing atrial fibrillation, rate 70. He is on Coumadin for anticoagulation. INR goal 2-3. Follows with the [facility]. No bleeding issues reported. No med changes made. 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 Said he has been wearing CPAP for approximately 12 years. His machine broke down 3 weeks ago. He says this was originally ordered by Dr. Hernandez. He says his sleep studies were done at [facility]. He says he needs a prescription for a new machine however that is not something we provide through cardiology. Informed him that it is done through pulmonology or Sleep Medicine. Will be going back to his PCP office to see if he can get a prescription through there. Otherwise recommend referral to pulmonology, sleep medicine to get his machine reordered. Plan Time spent on chart review, documentation, interview assess Coding Level of Care Code Est Pt Level 3 (74015) Diagnoses Permanent atrial fibrillation I48.21 Current use of anticoagulant therapy Z79.01 Sleep apnea G47.30 CPT Codes EKG - CPT: 66993-[id number], Complete ([id number]) Time Spent (min) 24
== END 2023-09-03 15:29 | disposition home or self-care (01) ==
PROVIDERS: PCP Internal Medicine; Visit Provider Nurse Practitioner Family
DX: I48.21 Permanent atrial fibrillation (principal); Z79.01 Long term (current) use of anticoagulants; G47.30 Sleep apnea, unspecified
CPT/HCPCS: 93010; 99213

== ENCOUNTER → 2023-09-03 14:32 | Outpatient (BNVA) | payer OTHER, SELFPAY | PROVIDERS: PCP Internal Medicine; Visit Provider Nurse Practitioner Family | DX: I48.21 Permanent atrial fibrillation (principal); G47.30 Sleep apnea, unspecified; Z79.01 Long term (current) use of anticoagulants | CPT/HCPCS: 93005 ==

== ENCOUNTER 2023-09-24 08:17 | Outpatient (AMB) | payer OTHER, SELFPAY ==
[2023-09-24 08:29] LABS: Prothrombin Time Whole Bld POC 27.1 sec (11.1-13.5); ~PT, ~INR - Anti Coag Clinic 2.3 (0.9-1.1)
--- NOTE | 2023-09-24 08:30 | MHC.OFFVISCO ---
Intake Intake Visit Reasons: Anticoagulation Allergies No Known Allergies Allergy (Mild, Verified 09/24/23 08:21) N/A Medication List - Last Reconciled 09/24/23 by Heide Pascal RN bupropion HCl XL 300 mg PO QAM calcium carbonate 1,000 mg PO DAILY cholecalciferol (vitamin D3) 50 mcg PO DAILY clorazepate dipotassium 7.5 mg PO TID comp.stocking,thigh,long,large As directed, 30-40 mm Hg pressure compress.stocking,knee,reg,lrg As directed magnesium 500 mg PO DAILY metoprolol tartrate 50 mg PO BID multivitamin 1 tab PO DAILY omega-3 fatty acids (Fish Oil Concentrate) 1,000 mg PO DAILY pantoprazole 40 mg PO DAILY simvastatin 20 mg PO BEDTIME warfarin See Protocol 12.5MG X 2DAY/ 10MG X5DAYS; Nursing Note INR: 2.3 in therapeutic range of 2-3 Medications and supplements reviewed: no change No changes in health, diet, medications, or supplements, Denies any signs and symptoms of bleeding or bruising or clotting. Bleeding, bruising, clotting discussed Nutritional guidance given to cont to balance reds and greens Dose: 12.5mg X2 days (Sun, Thurs) and 10mg X5 days F/U INR: 6 weeks per pt request Patient verbalizes understanding of instructions given Anti-Coag Initial Assessment Social Hx Patient Tobacco Use Status: Never used Tobacco alcohol intake: never Coding Level of Care Code Est Patient Level 1 Diagnoses Current use of anticoagulant therapy Z79.01 Results AMB INR Fingerstick AMB INR Fingerstick 2.3 Last Edit by Heide Pascal RN on 09/24/23 08:28 interface delay Assessment & Plan Assessment & Plan (1) Current use of anticoagulant therapy: Code(s): 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
== END 2023-09-24 08:35 | disposition home or self-care (01) ==
LOC: HO.ACS 08:17
PROVIDERS: PCP Internal Medicine; Visit Provider Internal Medicine
DX: Z79.01 Long term (current) use of anticoagulants (principal)

== ENCOUNTER → 2023-09-24 08:17 | Outpatient (BNVA) | payer OTHER, SELFPAY | PROVIDERS: PCP Internal Medicine; Visit Provider Internal Medicine | DX: I48.19 Other persistent atrial fibrillation (principal); Z51.81 Encounter for therapeutic drug level monitoring; Z79.01 Long term (current) use of anticoagulants | CPT/HCPCS: 85610; 99211 ==

== ENCOUNTER → 2023-11-05 08:00 | Outpatient (BNVA) | payer OTHER, SELFPAY | PROVIDERS: PCP Internal Medicine; Visit Provider Internal Medicine | DX: I48.19 Other persistent atrial fibrillation (principal); Z51.81 Encounter for therapeutic drug level monitoring; Z79.01 Long term (current) use of anticoagulants | CPT/HCPCS: 85610; 99211 ==

== ENCOUNTER 2023-12-17 07:58 | Outpatient (AMB) | payer OTHER, SELFPAY ==
[2023-12-17 08:06] LABS: Prothrombin Time Whole Bld POC 27.5 sec (11.1-13.5); ~PT, ~INR - Anti Coag Clinic 2.3 (0.9-1.1)
--- NOTE | 2023-12-17 08:10 | MHC.OFFVISCO ---
Intake Intake Visit Reasons: Anticoagulation Allergies No Known Allergies Allergy (Mild, Verified 12/17/23 08:01) N/A Medication List - Last Reconciled 12/17/23 by Heide Pascal, CHRISTO bupropion HCl XL 300 mg PO QAM calcium carbonate 1,000 mg PO DAILY cholecalciferol (vitamin D3) 50 mcg PO DAILY clorazepate dipotassium 7.5 mg PO TID comp.stocking,thigh,long,large As directed, 30-40 mm Hg pressure compress.stocking,knee,reg,lrg As directed magnesium 500 mg PO DAILY metoprolol tartrate 50 mg PO BID multivitamin 1 tab PO DAILY omega-3 fatty acids (Fish Oil Concentrate) 1,000 mg PO DAILY pantoprazole 40 mg PO DAILY simvastatin 20 mg PO BEDTIME warfarin See Protocol 12.5MG X 2DAY/ 10MG X5DAYS; Nursing Note INR: 2.3 in therapeutic range of 2-3 Medications and supplements reviewed No changes in health, diet, medications, or supplements, Denies any signs and symptoms of bleeding or bruising or clotting. Bleeding, bruising, clotting discussed Nutritional guidance given to cont to balance reds and greens Dose: pt self lowered his dose as he is more active in the Summer and has more fresh fruits and tomatoes F/U INR: 6 weeks per pt request Patient verbalizes understanding of instructions given Anti-Coag Initial Assessment Social Hx Patient Tobacco Use Status: Never used Tobacco alcohol intake: never Coding Level of Care Code Est Patient Level 1 Diagnoses Current use of anticoagulant therapy Z79.01 Assessment & Plan Assessment & Plan (1) Current use of anticoagulant therapy: Code(s): Z79.01 - [facility] (current) use of anticoagulants Category: Medical
== END 2023-12-17 08:13 | disposition home or self-care (01) ==
LOC: HO.ACS 07:58
PROVIDERS: PCP Internal Medicine; Visit Provider Internal Medicine
DX: Z79.01 Long term (current) use of anticoagulants (principal)

== ENCOUNTER → 2023-12-17 07:58 | Outpatient (BNVA) | payer OTHER, SELFPAY | PROVIDERS: PCP Internal Medicine; Visit Provider Internal Medicine | DX: I48.19 Other persistent atrial fibrillation (principal); Z51.81 Encounter for therapeutic drug level monitoring; Z79.01 Long term (current) use of anticoagulants | CPT/HCPCS: 85610; 99211 ==

== ENCOUNTER 2024-01-28 08:41 | Outpatient (AMB) | payer OTHER, SELFPAY ==
[2024-01-28 08:48] LABS: Prothrombin Time Whole Bld POC 29.3 sec (11.1-13.5); ~PT, ~INR - Anti Coag Clinic 2.4 (0.9-1.1)
--- NOTE | 2024-01-28 08:51 | MHC.OFFVISCO ---
Intake Intake Visit Reasons: Anticoagulation Allergies No Known Allergies Allergy (Mild, Verified 01/28/24 08:43) N/A Medication List - Last Reconciled 01/28/24 by Heide Pascal RN bupropion HCl XL 300 mg PO QAM calcium carbonate 1,000 mg PO DAILY cholecalciferol (vitamin D3) 50 mcg PO DAILY clorazepate dipotassium 7.5 mg PO TID comp.stocking,thigh,long,large As directed, 30-40 mm Hg pressure compress.stocking,knee,reg,lrg As directed magnesium 500 mg PO DAILY metoprolol tartrate 50 mg PO BID multivitamin 1 tab PO DAILY omega-3 fatty acids (Fish Oil Concentrate) 1,000 mg PO DAILY pantoprazole 40 mg PO DAILY simvastatin 20 mg PO BEDTIME warfarin See Protocol 12.5MG X 2DAY/ 10MG X5DAYS; Nursing Note INR: 2.4 in therapeutic range of 2-3 Medications and supplements reviewed No changes in health, diet, medications, or supplements, Denies any signs and symptoms of bleeding or bruising or clotting. Bleeding, bruising, clotting discussed Nutritional guidance given Dose: 10mg X 7 days F/U INR: 6 weeks at pt request, 4 weeks suggested. INR's have been stable. 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
== END 2024-01-28 08:56 | disposition home or self-care (01) ==
LOC: HO.ACS 08:41
PROVIDERS: PCP Internal Medicine; Visit Provider Internal Medicine
DX: Z79.01 Long term (current) use of anticoagulants (principal)

== ENCOUNTER → 2024-01-28 08:41 | Outpatient (BNVA) | payer OTHER, SELFPAY | PROVIDERS: PCP Internal Medicine; Visit Provider Internal Medicine | DX: I48.19 Other persistent atrial fibrillation (principal); Z51.81 Encounter for therapeutic drug level monitoring; Z79.01 Long term (current) use of anticoagulants | CPT/HCPCS: 85610; 99211 ==

== ENCOUNTER 2024-02-19 08:39 | Outpatient (AMB) | payer OTHER, SELFPAY ==
[2024-02-19 09:06] VITALS: BP 130/62; PULSE 51; BMI 39.3
--- NOTE | 2024-02-19 09:06 | A.OFFVIS_ITS ---
Vital Signs 02/19/24 09:06 Height 6 ft 1 in Weight 297 lb 9.985 oz BMI 39.3 BP 130/62 Blood Pressure Location Lt brachial Position Sitting Pulse 51 Pulse Source Monitor Intake Visit Reasons: 6 mnth f/up Intake Note: 6 mth f/up Pharmacy Aide Required: No Accompanied by: Self / Same As Patient Allergies No Known Allergies Allergy (Mild, Verified 01/28/24 08:43) N/A Medication List - Last Reconciled 02/19/24 by Buster Roa MD bupropion HCl XL 300 mg PO QAM calcium carbonate 1,000 mg PO DAILY cholecalciferol (vitamin D3) 50 mcg PO DAILY clorazepate dipotassium 7.5 mg PO TID comp.stocking,thigh,long,large As directed, 30-40 mm Hg pressure compress.stocking,knee,reg,lrg As directed magnesium 500 mg PO DAILY metoprolol tartrate 50 mg PO BID multivitamin 1 tab PO DAILY pantoprazole 40 mg PO DAILY simvastatin 20 mg PO BEDTIME warfarin See Protocol 12.5MG X 2DAY/ 10MG X5DAYS; HPI Comments Details: 69-year-old gentleman here for paroxysmal atrial fibrillation. Previously he has seen Dr. Hernandez as well as Dr. Vidal at [facility]. He was on sotalol and Coumadin. On initial visit he was in sinus rhythm but subseq uently when he came back he was in atrial fibrillation. On 2 subsequent visits he was in AFib without any symptoms. After discussion we stopped sotalol and change him to metoprolol tartrate. He has been doing well since then and has no new symptoms. No palpitations, chest discomfort or shortness of breath. Not in heart failure. Holter monitoring was performed which did not shows any signific ant concerns and his heart rate was well controlled. On Coumadin for anticoagulation. He has LE edema due to venous insufficiency. 02/19/2024: He is here for follow-up. He is complaining of excessive sweating when he does activities. He has no chest discomfort shortness of breath. Continues to be in atrial fibrillation as before with good rate control. No syncope or presyncope. Taking Coumadin. He also has known obstructive sleep apnea and has not been using the CPAP. He has never seen pulmonology or sleep medicine in the past. [facility] Medical History Diverticulitis PAF (paroxysmal atrial fibrillation) Current use of anticoagulant therapy Surgical History No pertinent past surgical history Family History Mother Acute leukemia Father CVD (cardiovascular disease) Heart attack Social History Alcohol intake: never Patient Tobacco Use Status: Never used Tobacco Review of Systems Const Denies chills, Denies fatigue, Denies fever(s), Denies frequent falls, Denies weakness, Denies weight gain and Denies weight loss ENT Denies dizziness Card Denies chest pain, Reports diaphoresis, Denies leg edema, Denies lightheadedness, Denies palpitations, Denies dyspnea and Denies dyspnea on exertion Resp Denies cough, Denies dyspnea and Denies dyspnea on exertion GI Denies hematochezia Musc Denies abnormal gait, Denies muscle weakness, Denies numbness, Denies radiating pain into limb and Denies tingling Neuro Denies abnormal gait, Denies dizziness, Denies frequent falls, Denies numbness, Denies tingling and Denies weakness Endo Denies fatigue and Denies palpitations Physical Exam Vital Signs: Last Vital Signs Pulse 51 02/19/24 09:06 BP 130/62 02/19/24 09:06 BMI result Body Mass Index 39.3 GENERAL APPEARANCE: in no acute distress. NECK/THYROID: no carotid bruit, no jugular venous distention. SKIN: no suspicious lesions, warm and dry. HEART: no murmurs, irregularly irregular rhythm,.bradycardic LUNGS: clear to auscultation bilaterally. ABDOMEN: normal, bowel sounds present, soft, nontender, nondistended. EXTREMITIES: no clubbing, cyanosis. 1-2 + edema. PERIPHERAL PULSES: equal. NEUROLOGIC: nonfocal, alert and oriented. PSYCH: mood/affect full range. Office Procedures EKG Details: Atrial fibrillation 51 beats per minute, left anterior fascicular block, nonspecific T-wave changes, QTC 409 milliseconds. [id number], Complete Assessment & Plan Assessment & Plan (1) MIGUEL A (obstructive sleep apnea): Code(s): G47.33 - Obstructive sleep apnea (adult) (pediatric) Category: Medical (2) Permanent atrial fibrillation: Code(s): I48.21 - Permanent atrial fibrillation Category: Medical (3) Venous insufficiency: Code(s): I87.2 - Venous insufficiency (chronic) (peripheral) Category: Medical Plan [age] year gentleman who is here for follow-up. He has permanent atrial fibrillation. No symptoms from atrial fibrillation currently. He is rate controlled with metoprolol tartrate 50 mg twice a day. He is on Coumadin for anticoagulation. Previously had low normal ejection fraction. We will repeat echocardiography to reassess the ejection fraction. He has peripheral edema which is due to venous insufficiency. Blood pressure control is good. He has diagnosed sleep apnea and I am referring him to pulmonology for further assessment and management. Follow-up with us in few months. Thank you for allowing me to participate in the care of your patient. Please feel free to contact me if you have any questions. Orders: Orders CA echo transthoracic complete Today I48.21 - Permanent atrial fibrillation Referrals Pulmonology Referral G47.33 - Obstructive sleep apnea (adult) (pediatric) Coding Level of Care Code Est Pt Level 4 (03695) Diagnoses MIGUEL A (obstructive sleep apnea) G47.33 Permanent atrial fibrillation I48.21 Venous insufficiency I87.2 CPT Codes EKG - CPT: 41576-[id number], Complete ([id number])
== END 2024-02-19 09:27 | disposition home or self-care (01) ==
PROVIDERS: PCP Internal Medicine; Visit Provider Internal Medicine Cardiovascular Disease
DX: G47.33 Obstructive sleep apnea (adult) (pediatric) (principal); I48.21 Permanent atrial fibrillation; I87.2 Venous insufficiency (chronic) (peripheral)
CPT/HCPCS: 93010; 99214

== ENCOUNTER → 2024-02-19 08:39 | Outpatient (BNVA) | payer OTHER, SELFPAY | PROVIDERS: PCP Internal Medicine; Visit Provider Internal Medicine Cardiovascular Disease | DX: I48.21 Permanent atrial fibrillation (principal); I87.2 Venous insufficiency (chronic) (peripheral); G47.33 Obstructive sleep apnea (adult) (pediatric); Z79.01 Long term (current) use of anticoagulants; Z79.899 Other long term (current) drug therapy | CPT/HCPCS: 93005 ==

== ENCOUNTER 2024-03-10 08:57 | Outpatient (AMB) | payer OTHER, SELFPAY ==
[2024-03-10 09:08] LABS: Prothrombin Time Whole Bld POC 34.8 sec (11.1-13.5); ~PT, ~INR - Anti Coag Clinic 2.9 (0.9-1.1)
--- NOTE | 2024-03-10 09:21 | MHC.OFFVISCO ---
Intake Intake Visit Reasons: Anticoagulation Allergies No Known Allergies Allergy (Mild, Verified 03/10/24 09:02) N/A Medication List - Last Reconciled 03/10/24 by Heide Pascal RN bupropion HCl XL 300 mg PO QAM calcium carbonate 1,000 mg PO DAILY cholecalciferol (vitamin D3) 50 mcg PO DAILY clorazepate dipotassium 7.5 mg PO TID comp.stocking,thigh,long,large As directed, 30-40 mm Hg pressure compress.stocking,knee,reg,lrg As directed magnesium 500 mg PO DAILY metoprolol tartrate 50 mg PO BID multivitamin 1 tab PO DAILY pantoprazole 40 mg PO DAILY simvastatin 20 mg PO BEDTIME warfarin See Protocol 12.5MG X 2DAY/ 10MG X5DAYS; Nursing Note INR: 2.9 in therapeutic range of 2-3 Medications and supplements reviewed No changes in health, diet, medications, or supplements, Denies any signs and symptoms of bleeding or bruising or clotting. Bleeding, bruising, clotting discussed. Pt states he has had a nosebleed for the past 2 weeks but it stopped 4 days ago. He states he held a dose 2 weeks ago. If nosebleeds start again, pt states he will call his MD to go see an EENT specialist. States this happened before and the bleed was cauterized. Nutritional guidance given to have a serving of greens today Dose: 10mg daily F/U INR: 6 weeks per pt request, 4 weeks preferred per [facility] protocol Patient verbalizes understanding of instructions given Anti-Coag Initial Assessment Social Hx Patient Tobacco Use Status: Never used Tobacco alcohol intake: never Coding Level of Care Code Est Patient Level 1 Diagnoses Current use of anticoagulant therapy Z79.01 Assessment & Plan Assessment & Plan (1) Current use of anticoagulant therapy: Code(s): Z79.01 - long-term (current) use of anticoagulants Category: Medical
== END 2024-03-10 09:42 | disposition home or self-care (01) ==
LOC: HO.ACS 08:57
PROVIDERS: PCP Internal Medicine; Visit Provider Internal Medicine
DX: Z79.01 Long term (current) use of anticoagulants (principal)

== ENCOUNTER → 2024-03-10 08:57 | Outpatient (BNVA) | payer OTHER, SELFPAY | PROVIDERS: PCP Internal Medicine; Visit Provider Internal Medicine | DX: I48.19 Other persistent atrial fibrillation (principal); Z79.01 Long term (current) use of anticoagulants; Z51.81 Encounter for therapeutic drug level monitoring | CPT/HCPCS: 85610; 99211 ==

== ENCOUNTER → 2024-03-16 08:36 | Outpatient (REF) | payer OTHER, SELFPAY ==
--- NOTE | 2024-03-16 08:39 | CA_ITS ---
Transthoracic Echocardiogram Patient (Last, First, Middle): Steph Gagnon, Gender: Male Date of : 1955 Age: 69 Procedure Date: 03/16/2024 Procedure Type: Transthoracic Echocardiogram Location: OP Height: 185. cm Weight: 131.54 kg BSA: 2.52 m2 Heart Rate: 61 bpm BP: 132 / 85 mmHg Mail Censor: EULALIO Blood MD: Buster Roa MD Trackwalker: Buster Roa MD Symptoms: I48.21 - Permanent atrial fibrillation Study Quality: Fair ECG Rhythm: Atrial Fibrillation Conclusions: - Normal left ventricular cavity size. There is mildly increased left ventricular wall thickness. The left ventricular systolic function is low normal. The visually estimated ejection fraction is between 50-55%. - Normal right ventricular cavity size and systolic function. - Mildly elevated right atrial pressure. - There is no evidence of pulmonary hypertension. - There is mild dilatation of the ascending aorta measuring 3.90 cm. Findings Left Ventricle Normal left ventricular cavity size. There is mildly increased left ventricular wall thickness. The left ventricular systolic function is low normal. The visually estimated ejection fraction is between 50-55%. There is no evidence of regional wall motion abnormalities. Diastolic function is indeterminate on the basis of available data. Right Ventricle Normal right ventricular cavity size and systolic function. Atria The left atrium is mildly dilated. The right atrium is normal in size. Aortic Valve There is a normal trileaflet aortic valve. There is no aortic valve stenosis. There is no aortic valve regurgitation. Mitral Valve The mitral valve appears normal. There is trace mitral valve regurgitation. There is no mitral valve stenosis. Pulmonic Valve The pulmonic valve is likely normal. Tricuspid Valve Normal tricuspid valve structure. There is trace tricuspid valve regurgitation. The right ventricular systolic pressure is 34 mmHg. Mildly elevated right atrial pressure. There is no evidence of pulmonary hypertension. Great Vessels There is mild dilatation of the ascending aorta measuring 3.90 cm. Venous The inferior vena cava is dilated and collapses greater than 50% with inspiration. Pericardium/Pleural There is no evidence of pericardial effusion. Prior Study Comparison No significant change compared to prior study dated: 05/04/2022. Measurements 2D Linear Measurements IVSd: 1.16 0.6-0.9/0.6-1.0 cm LVIDd: 5.15 3.9-5.3/4.2-5.9 cm LVIDd Index: 2.04 2.4-3.2/2.2-3.1 cm/m2 LVIDs: 3.21 2.0-3.6 cm LVPWd: 1.20 0.7-1.1 cm LA Diam: 5.10 2.7-3.8/3.0-4.0 cm LAIDs Index: 2.02 1.5-2.3 cm/m2 LV Mass: 298.45 67-162/88-224 g LV Mass Index: 118.43 43-95/49-115 g/m2 LVOT Diam: 2.40 3.0+(-)1.3 cm 2D Systolic Function EF 4C: 50.90 >55% EF 2C: 51.50 >55% EF BiP: 52.70 >55% Mitral Valve MV Pk E: 0.92 MV Decel Time: 192.00 E'Lateral: 12.70 E'Medial: 7.80 E/E' Med: 11.80 E/E' Lat: 7.30 PHT: 56.00 MVA PHT: 3.93 Decel Bland: 4.81 Aortic Valve AoV Pk Howard: 1.22 AoV Mn Howard: 0.96 AoV VTI: 0.28 AoV Pk Grad: 6.00 Aov Mn Grad: 4.00 WILFREDO Cont.VTI: 2.65 LVOT LVOT Pk Howard: 0.74 LVOT Mn Howard: 0.53 LVOT VTI: 0.16 LVOT Pk Grad: 2.00 LVOT Mn Grad: 1.00 LVOT Diam: 2.40 LVOT Area: 4.52 Diastolic Function MV Pk E: 0.92 E'Medial: 7.80 E/E' Med: 11.80 E' Laterial: 12.70 E/E' Lat: 7.30 Right Ventricle TAPSE (mm): 17.80 TVS' Howard: 11.10 Tricuspid Valve TR Pk Howard: 2.55 TR Pk Grad: 26.00 RA Press: 8.00 RVSP: 34.00 Great Vessels Aorta Sinus of Valsalva: 3.50 2.0-3.5 cm Ao Asc: 3.90 2.1-3.4 cm Ao Arch: 2.80 Pulmonary Valve PV Pk Howard: 0.91 Peak PV Grad: 3.00 Updated in Other Vendor System with Status of Final Buster Roa MD electronically signed on 03/18/2024 11:48:15 AM with status of Final
== END ==
LOC: HO.CARD 08:36
PROVIDERS: PCP Internal Medicine; Visit Provider Internal Medicine Cardiovascular Disease
DX: I48.21 Permanent atrial fibrillation (principal)
CPT/HCPCS: 93306

== ENCOUNTER → 2024-03-16 08:39 | Outpatient (BNV) | payer OTHER, SELFPAY | PROVIDERS: PCP Internal Medicine; Visit Provider Internal Medicine Cardiovascular Disease | DX: I48.21 Permanent atrial fibrillation (principal) | CPT/HCPCS: 93306 ==

== ENCOUNTER 2024-04-21 07:56 | Outpatient (AMB) | payer OTHER, SELFPAY ==
--- NOTE | 2024-04-21 08:06 | MHC.OFFVISCO ---
Intake Intake Visit Reasons: Anticoagulation Allergies No Known Allergies Allergy (Mild, Verified 04/21/24 08:02) N/A Medication List - Last Reconciled 04/21/24 by Karol Mayen RN bupropion HCl XL 300 mg PO QAM calcium carbonate 1,000 mg PO DAILY cholecalciferol (vitamin D3) 50 mcg PO DAILY clorazepate dipotassium 7.5 mg PO TID comp.stocking,thigh,long,large As directed, 30-40 mm Hg pressure compress.stocking,knee,reg,lrg As directed magnesium 500 mg PO DAILY metoprolol tartrate 50 mg PO BID multivitamin 1 tab PO DAILY pantoprazole 40 mg PO DAILY simvastatin 20 mg PO BEDTIME warfarin See Protocol 12.5MG X 2DAY/ 10MG X5DAYS; Nursing Note INR 3.9- out of therapeutic range of 2-3 Medications and supplements reviewed Patient status: no c.o - pt unsure why inr is elev Medications or supplements: no changes Diet: same, had some dark chocolate, strawberries Denies any signs and symptoms of bleeding or clotting or unusual bruising Bleeding, bruising, clotting discussed Nutritional guidance given: eat greens to lower, no reds for 2 days Dose: already took warfarin this am, hold tomm then 10mg x 7 F/U INR Date : 2 weeks? Patient verbalizing understanding of instructions given. Anti-Coag Initial Assessment Social Hx Patient Tobacco Use Status: Never used Tobacco alcohol intake: never Coding Level of Care Code Est Patient Level 1 Diagnoses Current use of anticoagulant therapy Z79.01 Assessment & Plan Assessment & Plan (1) Current use of anticoagulant therapy: Code(s): Z79.01 - [facility] (current) use of anticoagulants Category: Medical
[2024-04-21 08:07] LABS: Prothrombin Time Whole Bld POC 46.4 sec (11.1-13.5); ~PT, ~INR - Anti Coag Clinic 3.9 (0.9-1.1)
== END 2024-04-21 08:14 | disposition home or self-care (01) ==
LOC: HO.ACS 07:56
PROVIDERS: PCP Internal Medicine; Visit Provider Internal Medicine
DX: Z79.01 Long term (current) use of anticoagulants (principal)

== ENCOUNTER → 2024-04-21 07:56 | Outpatient (BNVA) | payer OTHER, SELFPAY | PROVIDERS: PCP Internal Medicine; Visit Provider Internal Medicine | DX: I48.19 Other persistent atrial fibrillation (principal); Z79.01 Long term (current) use of anticoagulants; Z51.81 Encounter for therapeutic drug level monitoring | CPT/HCPCS: 85610; 99211 ==

== ENCOUNTER 2024-05-05 09:03 | Outpatient (AMB) | payer OTHER, SELFPAY ==
--- NOTE | 2024-05-05 09:22 | MHC.OFFVISCO ---
Intake Intake Visit Reasons: Anticoagulation Allergies No Known Allergies Allergy (Mild, Verified 05/05/24 09:12) N/A Medication List - Last Reconciled 05/05/24 by Heide Pascal RN bupropion HCl XL 300 mg PO QAM calcium carbonate 1,000 mg PO DAILY cholecalciferol (vitamin D3) 50 mcg PO DAILY clorazepate dipotassium 7.5 mg PO TID comp.stocking,thigh,long,large As directed, 30-40 mm Hg pressure compress.stocking,knee,reg,lrg As directed magnesium 500 mg PO DAILY metoprolol tartrate 50 mg PO BID multivitamin 1 tab PO DAILY pantoprazole 40 mg PO DAILY simvastatin 20 mg PO BEDTIME warfarin See Protocol 12.5MG X 2DAY/ 10MG X5DAYS; Nursing Note INR: 2.3 in therapeutic range of 2-3 Medications and supplements reviewed No changes in health, diet, medications, or supplements, Denies any signs and symptoms of bleeding or bruising or clotting. Bleeding, bruising, clotting discussed Nutritional guidance given Dose: 10mg daily F/U INR: 6 weeks per pt request Patient verbalizes understanding of instructions given Anti-Coag Initial Assessment Social Hx Patient Tobacco Use Status: Never used Tobacco alcohol intake: never Coding Level of Care Code Est Patient Level 1 Diagnoses Current use of anticoagulant therapy Z79.01 Results AMB INR Fingerstick AMB INR Fingerstick 2.3 Last Edit by Heide Pascal RN on 05/05/24 09:20 interface delay Assessment & Plan Assessment & Plan (1) Current use of anticoagulant therapy: Code(s): Z79.01 - [facility] (current) use of anticoagulants Category: Medical
[2024-05-05 09:24] LABS: Prothrombin Time Whole Bld POC 27.9 sec (11.1-13.5); ~PT, ~INR - Anti Coag Clinic 2.3 (0.9-1.1)
== END 2024-05-05 09:23 | disposition home or self-care (01) ==
LOC: HO.ACS 09:03
PROVIDERS: PCP Internal Medicine; Visit Provider Internal Medicine
DX: Z79.01 Long term (current) use of anticoagulants (principal)

== ENCOUNTER → 2024-05-05 09:03 | Outpatient (BNVA) | payer OTHER, SELFPAY | PROVIDERS: PCP Internal Medicine; Visit Provider Internal Medicine | DX: I48.19 Other persistent atrial fibrillation (principal); Z79.01 Long term (current) use of anticoagulants; Z51.81 Encounter for therapeutic drug level monitoring | CPT/HCPCS: 85610; 99211 ==

== ENCOUNTER 2024-05-08 09:26 | Outpatient (AMB) | payer OTHER, SELFPAY ==
--- NOTE | 2024-05-08 09:27 | A.OFFVIS_ITS ---
Vital Signs 05/08/24 09:28 Height 6 ft 1 in Weight 299 lb BMI 39.4 BP 130/78 Blood Pressure Location Rt brachial Position Sitting Pulse 61 Pulse Source Doppler Pulse Oximetry (%) 99 Oxygen Delivery Method Room Air Intake Visit Reasons: miguel a Allergies No Known Allergies Allergy (Mild, Verified 05/05/24 09:12) N/A HPI HPI miguel a: Details: 69-year-old gentleman with underlying sleep apnea with remote sleep study over 10 years prior, recently his machine stopped working and now he requires a new C PAP machine. [facility] Medical History Diverticulitis PAF (paroxysmal atrial fibrillation) Current use of anticoagulant therapy Surgical History No pertinent past surgical history Family History Mother Acute leukemia Father CVD (cardiovascular disease) Heart attack Social History Alcohol intake: never Patient Tobacco Use Status: Never used Tobacco Review of Systems Const Denies daytime sleepiness, Denies excessive sweating, Denies fatigue, Denies fever(s), Denies lethargy, Denies malaise, Denies night sweats, Denies snoring and Denies weight loss Eyes Denies blurry vision and Denies itchy eyes ENT Denies nasal congestion, Denies post nasal drip, Denies sinus pain, Denies sinus pressure and Denies other ( Thrush) Card Denies chest pain, Denies pedal edema, Denies dyspnea, Denies orthopnea and Denies paroxysmal nocturnal dyspnea Resp Denies cough, Denies hemoptysis, Denies excessive phlegm production, Denies dyspnea, Denies snoring and Denies wheezing GI Denies abdominal pain and Denies heartburn Musc Denies myalgias, Denies arthralgias and Denies joint swelling Skin/Breast Denies rash Neuro Denies memory loss and Denies seizure-like activity Psych Denies abnormal sleep pattern, Denies anxiety and Denies memory loss Endo Denies excessive sweating, Denies fatigue and Denies heat intolerance Maurice/Lymph Denies easy bruising Aller/Immun Denies itchy eyes, Denies seasonal rhinorrhea and Denies wheezing Physical Exam Vital Signs: Last Vital Signs Pulse 61 05/08/24 09:28 BP 130/78 05/08/24 09:28 Pulse Ox 99 05/08/24 09:28 Oxygen Delivery Method Room Air 05/08/24 09:28 BMI result Body Mass Index 39.4 Const General: no acute distress and alert Nutritional Appearance: not obese Orientation/consciousness: Other orientation findings ( oriented) HEENT Head: Yes atraumatic Eyes General: appearance normal, both eyes and all related structures Sclerae: sclerae normal EOM: EOMs intact bilaterally Neck Neck: Yes supple Lymphatic: no lymphadenopathy noted Resp Effort & Inspection: normal respiratory effort and no use of accessory muscles Auscultation: clear to auscultation bilaterally Cardio Rate: regular rate Rhythm: regular rhythm Heart sounds: no gallops, no murmurs and no rubs Skin General skin exam: other ( warm) Extrem General: No clubbing, No cyanosis and No edema Assessment & Plan Assessment & Plan (1) MIGUEL A (obstructive sleep apnea): Code(s): G47.33 - Obstructive sleep apnea (adult) (pediatric) Category: Medical Plan: MIGUEL A with remote sleep study over 10 years prior, with changes in weight, and recently with machine that broken. Requires and you sleep study. Will obtain at home study. Orders: Orders RT home sleep study Today G47.33 - Obstructive sleep apnea (adult) (pediatric) Coding Level of Care Code New Pt Level 3 (86665) Diagnoses MIGUEL A (obstructive sleep apnea) G47.33
[2024-05-08 09:28] VITALS: BP 130/78; PULSE 61; O2SAT 99; BMI 39.4
== END 2024-05-08 09:40 | disposition home or self-care (01) ==
PROVIDERS: PCP Internal Medicine; Visit Provider Internal Medicine Pulmonary Disease
DX: G47.33 Obstructive sleep apnea (adult) (pediatric) (principal)
CPT/HCPCS: 99203

== ENCOUNTER → 2024-05-08 09:26 | Outpatient (BNVA) | payer OTHER, SELFPAY | PROVIDERS: PCP Internal Medicine; Visit Provider Internal Medicine Pulmonary Disease ==

== ENCOUNTER → 2024-06-16 07:35 | Outpatient (REF) | payer OTHER, SELFPAY | LOC: HO.SL 07:35 | PROVIDERS: PCP Internal Medicine; Visit Provider Internal Medicine Pulmonary Disease | DX: G47.33 Obstructive sleep apnea (adult) (pediatric) (principal); Z79.01 Long term (current) use of anticoagulants | CPT/HCPCS: 85610; 95806; 99211 ==

== ENCOUNTER 2024-06-16 07:53 | Outpatient (AMB) | payer OTHER, SELFPAY ==
--- NOTE | 2024-06-16 08:17 | MHC.OFFVISCO ---
Intake Intake Visit Reasons: Anticoagulation Allergies No Known Allergies Allergy (Mild, Verified 06/16/24 08:05) N/A Medication List - Last Reconciled 06/16/24 by Oksana Carnes RN bupropion HCl XL 300 mg PO QAM calcium carbonate 1,000 mg PO DAILY cholecalciferol (vitamin D3) 50 mcg PO DAILY clorazepate dipotassium 7.5 mg PO TID comp.stocking,thigh,long,large As directed, 30-40 mm Hg pressure compress.stocking,knee,reg,lrg As directed magnesium 500 mg PO DAILY metoprolol tartrate 50 mg PO BID multivitamin 1 tab PO DAILY pantoprazole 40 mg PO DAILY simvastatin 20 mg PO BEDTIME warfarin See Protocol 12.5MG X 2DAY/ 10MG X5DAYS; Nursing Note NO CP,SOB,DIET/ME CHANGES,FALLS OR SX OF BLEEDING. CONTINUE 10MGM DAILY AND FOLLOW-UP IN 6 WEKS. GOOD UNDERSTANDING OF DOSING INSTR. Anti-Coag Initial Assessment Social Hx Patient Tobacco Use Status: Never used Tobacco alcohol intake: never Coding Level of Care Code Est Patient Level 1 Diagnoses Current use of anticoagulant therapy Z79.01 Assessment & Plan Assessment & Plan (1) Current use of anticoagulant therapy: Code(s): Z79.01 - [facility] (current) use of anticoagulants Category: Medical
== END 2024-06-16 08:21 | disposition home or self-care (01) ==
LOC: HO.ACS 07:53
PROVIDERS: PCP Internal Medicine; Visit Provider Internal Medicine
DX: Z79.01 Long term (current) use of anticoagulants (principal)

== ENCOUNTER → 2024-06-16 08:29 | Outpatient (BNV) | payer OTHER, SELFPAY | PROVIDERS: PCP Internal Medicine; Visit Provider Internal Medicine | DX: G47.33 Obstructive sleep apnea (adult) (pediatric) (principal) | CPT/HCPCS: 95806 ==

== ENCOUNTER 2024-07-22 07:24 | Outpatient (REF) | payer OTHER, SELFPAY ==
[2024-07-22 07:34] LABS: MANUAL DIFF FLAG NO
[2024-07-22 07:40] LABS: Basophils Absolute Auto 0.1 X10*3/uL (0.0-0.2); Eosinophils Absolute Auto 0.1 X10*3/uL (0.0-0.4); Eosinophils Percent Auto 1.5 % (0-4); Hematocrit 47.2 % (42.0-52.0); Imm Gran Abs Auto 0.06 X10*3/uL (0.00-0.03); Imm Gran Pct Auto 0.8 % (0.0-0.4); Lymphocytes Absolute Auto 1.5 X10*3/uL (1.2-4.9); Lymphocytes Percent Auto 21.1 % (20-40); Mean Corpuscular HGB Conc 33.9 g/dl (31.0-36.0); Mean Corpuscular Hemoglobin 29.7 pg (27.0-33.0); Mean Corpuscular Volume 87.7 fL (80.0-98.0); Mean Platelet Volume 10.5 fL (9.4-12.4); Monocytes Absolute Auto 0.7 X10*3/uL (0.1-1.2); Monocytes Percent Auto 10.2 % (2-11); Neutrophils Absolute Auto 4.7 x10*3/uL (2.0-8.3); Neutrophils Percent Auto 65.4 % (45-73); Platelet Count 172 X10*3/uL (160-400); Red Blood Count 5.38 X10*6/uL (4.60-5.80); Red Cell Distribution Width 13.1 % (11.0-16.0); White Blood Count 7.1 X10*3/uL (4.8-10.8)
[2024-07-22 08:08] LABS: Estimated Average Glucose 117 mg/dL; Hemoglobin A1C 160.8376 umol/L; Hemoglobin A1c % 5.7 % (<6.0); Total Hemoglobin (HGBA1C) 4146.7569 umol/L
[2024-07-22 08:18] LABS: Alanine Aminotransferase 25 U/L (0-40); Albumin Level 4.2 g/dL (3.5-5.0); Alkaline Phosphatase 64 U/L (39-117); Anion Gap 12 (12-20); Aspartate Amino Transferase 26 U/L (5-37); Bilirubin Total 0.6 mg/dL (0.0-1.0); Blood Urea Nitrogen 19 mg/dL (9-16); Carbon Dioxide 27 mmol/L (22-29); Chloride 106 mmol/L (96-108); Cholesterol 148 mg/dL (<200); Estimated Glomerular Filt Rate 52; Glucose Fasting 110 mg/dL (60-99); HDL Cholesterol 33 mg/dL (>40); LDL Cholesterol Calculated 85 mg/dL (<100); Potassium 4.9 mmol/L (3.3-5.1); Sodium 140 mmol/L (135-145); Total Protein 7.1 g/dL (6.5-8.0); Triglycerides 150 mg/dL (<150)
== END 2024-07-22 07:25 | disposition home or self-care (01) ==
LOC: HO.LAB 07:24
PROVIDERS: PCP Internal Medicine; Visit Provider Internal Medicine
DX: Z00.00 Encounter for general adult medical examination without abnormal findings (principal); I10 Essential (primary) hypertension; I48.91 Unspecified atrial fibrillation; K21.9 Gastro-esophageal reflux disease without esophagitis; E78.00 Pure hypercholesterolemia, unspecified; Z13.1 Encounter for screening for diabetes mellitus
CPT/HCPCS: 36415; 80053; 80061; 83036; 85025

== ENCOUNTER 2024-07-28 08:07 | Outpatient (AMB) | payer OTHER, SELFPAY ==
[2024-07-28 08:32] LABS: ~PT, ~INR - Anti Coag Clinic 2.8 (0.9-1.1)
--- NOTE | 2024-07-28 10:01 | MHC.OFFVISCO ---
Intake Intake Visit Reasons: Anticoagulation Allergies No Known Allergies Allergy (Mild, Verified 07/28/24 08:25) N/A Medication List - Last Reconciled 07/28/24 by Lola Davies RN bupropion HCl XL 300 mg PO QAM calcium carbonate 1,000 mg PO DAILY cholecalciferol (vitamin D3) 50 mcg PO DAILY clorazepate dipotassium 7.5 mg PO TID comp.stocking,thigh,long,large As directed, 30-40 mm Hg pressure compress.stocking,knee,reg,lrg As directed magnesium 500 mg PO DAILY metoprolol tartrate 50 mg PO BID multivitamin 1 tab PO DAILY pantoprazole 40 mg PO DAILY simvastatin 20 mg PO BEDTIME warfarin See Protocol 12.5MG X 2DAY/ 10MG X5DAYS; Nursing Note INR: 2.8 in therapeutic range Medications and supplements reviewed has been having occ nosebleeds which is has had before prior to ever taking warfarin- plans to see md about possible caterization warfarin dose decreased and nosebleeds are lessening - none today states he eats salads daily and is tiered of it - enc to eat cooked greens Denies any signs and symptoms of bleeding or bruising or clotting. Bleeding, bruising, clotting discussed Nutritional guidance given-cooked greens lower INR more than raw greens Dose: 5mg x 1 day/ 10mg x 6 days F/U INR: 1 month Patient verbalizes understanding of instructions given Anti-Coag Initial Assessment Social Hx Patient Tobacco Use Status: Never used Tobacco alcohol intake: never Questionnaires HAS-BLED Does the patient had uncontrolled Hypertension?: No Does the patient have renal disease?: No Does the patient have liver disease?: No Does the patient have a history of stroke?: No Has the patient had major bleeding or predisposition to bleeding?: Yes (hx of GI bleed, nose bleeds ) Does the patient have labile INRs?: No Is the patient over 65 years of age?: Yes Is the patient on medications that gives them a predisposition to bleeding?: Yes Does the patient use alcohol?: No HAS-BLED Score: 3 CHADSVASC Age: 66-74 Gender: Male Does the patient have a history of CHF?: No Does the patient have a history of Hypertension?: No Does the patient have a history of Stroke/TIA/Thromboembolism?: No Does the patient have a history of Vascular Disease (prior [place], PAD or aortic plaque)?: Yes (venous insufficiency ) Does the patient have a history of Diabetes?: No CHADS VACS Score: 2 Tessy Prediction Score Rsk VTE Active Cancer: No Previous VTE, excluding superficial vein thrombosis: No Reduced mobility: No Already known Thrombophilic Condition: No With-in last month Trauma and/or Surgery: No Elderly 70 year or older: Yes Heart and/or Respiratory Failure: No Acute Myocardial infarction and/or Ischemic Stroke: No Acute Infection and/or Rheumatologic Disorder: No Obesity (BMI 30 or greater): Yes Ongoing Hormonal Treatment: No Score: 2 Tessy Score less than 4; Low Risk of VTE Tessy Score 4 or greater; High Risk of VTE Coding Level of Care Code Est Patient Level 1 Diagnoses Current use of anticoagulant therapy Z79.01 Results AMB INR Fingerstick AMB INR Fingerstick 2.8 Last Edit by Lola Davies RN on 07/28/24 08:31 manual entry Assessment & Plan Assessment & Plan (1) Current use of anticoagulant therapy: 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
== END 2024-07-28 08:50 | disposition home or self-care (01) ==
LOC: HO.ACS 08:07
PROVIDERS: PCP Internal Medicine; Visit Provider Internal Medicine
DX: Z79.01 Long term (current) use of anticoagulants (principal)

== ENCOUNTER → 2024-07-28 08:07 | Outpatient (BNVA) | payer OTHER, SELFPAY | PROVIDERS: PCP Internal Medicine; Visit Provider Internal Medicine | DX: I48.19 Other persistent atrial fibrillation (principal); Z79.01 Long term (current) use of anticoagulants; Z51.81 Encounter for therapeutic drug level monitoring | CPT/HCPCS: 85610; 99211 ==

== ENCOUNTER → 2024-09-08 08:00 | Outpatient (BNVA) | payer OTHER, SELFPAY | PROVIDERS: PCP Internal Medicine; Visit Provider Internal Medicine | DX: I48.19 Other persistent atrial fibrillation (principal); Z79.01 Long term (current) use of anticoagulants; Z51.81 Encounter for therapeutic drug level monitoring | CPT/HCPCS: 85610; 99211 ==

== ENCOUNTER → 2024-10-20 08:18 | Outpatient (BNVA) | payer OTHER, SELFPAY | PROVIDERS: PCP Internal Medicine; Visit Provider Internal Medicine Medical Oncology | DX: I48.19 Other persistent atrial fibrillation (principal); Z51.81 Encounter for therapeutic drug level monitoring; Z79.01 Long term (current) use of anticoagulants | CPT/HCPCS: 85610; 99211 ==

== ENCOUNTER 2024-10-30 09:32 | Outpatient (AMB) | payer OTHER, SELFPAY ==
--- NOTE | 2024-10-30 09:42 | A.OFFPC_ITS ---
Vital Signs 10/30/24 09:49 Height 6 ft 1 in Weight 308 lb BMI 40.6 BP 130/72 Blood Pressure Location Lt brachial Position Sitting Respiration 16 Pulse 62 Pulse Source Pulse Oximeter Temp 97.7 F Temp Source Temporal Artery Scan Pulse Oximetry (%) 95 Oxygen Delivery Method Room Air Intake Visit Reasons: Routine Intake Note: patient here for routine follow up 4 Imaging Services Director Required: No Allergies No Known Allergies Allergy (Mild, Verified 10/30/24 09:46) N/A Tobacco use date assessed: 10/30/24 Fall risk assessment: No Falls in past year Last assessed Fall Risk: 10/30/24 Dental Screening Dental Screen Date: 10/30/24 Did you have a dental visit in the last 12 months?: Yes Did you have a dental problem in the last 6 months where you did not have access to dental care?: No Was dental information given to patient?: Patient has dentist HPI HPI Comments History of Present Illness Details 69-year-old male with pmh parkison disea se, paroxysmal atrial fibrillation, hypertension, diverticulosis, MIGUEL A presenting for follow up. Last seen by PCP in June Patient reports 2-3 year history of pain in the right upper quadrant. Dull pulling ache. He had non contrast CT in 2022-umbilical and supraumbilical hernia. He has started to notice a large protuberance in the right upper abdomen more visible when he sits up. CV: following with cardiology. On metoprolol, simvastatin. Chronic LE edema due to venous insufficiency. MIGUEL A- has not been using the CPAP. He has never seen pulmonology or sleep med icine in the past. BH: stable on buproprion, chlorazepate ROS see HPI PHYSICAL EXAM: GENERAL: Alert and oriented x 3. NAD EYES: EOMI. Anicteric. HENT: Moist mucous membranes. No scleral icterus. No cervical lymphadenopathy. LUNGS: Clear to auscultation bilaterally. CARDIOVASCULAR: Regular rate and rhythm. No murmur. No JVD. ABDOMEN: Soft, large multicentimeter mass in right upper abdomen. EXTREMITIES: No edema. Non-tender. SKIN: No rashes or lesions. Warm. NEUROLOGIC: No focal neurological deficits. CN II-XII grossly intact PSYCHIATRIC: Cooperative. Appropriate mood and affect [facility] Medical History Diverticulitis PAF (paroxysmal atrial fibrillation) Current use of anticoagulant therapy Surgical History History of colonoscopy (~11/28/15) No pertinent past surgical history Family History Mother Acute leukemia Father CVD (cardiovascular disease) Heart attack Social History Housing: House Alcohol intake: never Patient Tobacco Use Status: Never used Tobacco e-Cigarette/Vaping Use: Never Used Second Hand Smoke Exposure: No service: No Current occupational status: retired Current occupational exposures/hazards: No Cognitive needs: No Hearing needs: No Vision needs: Yes Physical exam (Primary Care) Vital Signs: Last Vital Signs Temp 97.7 F 10/30/24 09:49 Pulse 62 10/30/24 09:49 Resp 16 10/30/24 09:49 BP 130/72 10/30/24 09:49 Pulse Ox 95 10/30/24 09:49 Oxygen Delivery Method Room Air 10/30/24 09:49 BMI result Body Mass Index 40.6 Tobacco/Smoking Status: Tobacco use Status Tobacco use date assessed 10/30/24 10/30/24 09:52 Patient Tobacco Use Status Never used Tobacco 10/30/24 09:46 e-Cigarette/Vaping Use Never Used 10/30/24 09:52 Coding Level of Care Code New Pt Level 4 (71895) Complex EM visit Add On G2211 Diagnoses Right upper quadrant abdominal pain R10.11 Abdominal hernia without obstruction and without gangrene, recurrence not specified, unspecified hernia type K46.9 Hernia type: unspecified Obstruction and gangrene presence: without obstruction or gangrene Recurrence: not specified as recurrent Primary hypertension I10 Hypertension type: primary hypertension MIGUEL A (obstructive sleep apnea) G47.33 Permanent atrial fibrillation I48.21 Assessment & Plan Assessment & Plan (1) Right upper quadrant abdominal pain: Code(s): R10.11 - Right upper quadrant pain Category: Medical (2) Abdominal hernia: Code(s): K46.9 - Unspecified abdominal hernia without obstruction or gangrene Category: Medical Qualifiers: Hernia type: unspecified Obstruction and gangrene presence: without obstruction or gangrene Recurrence: not specified as recurrent Qualified Code(s): K46.9 - Unspecified abdominal hernia without obstruction or gangrene (3) Hypertension: Code(s): I10 - Essential (primary) hypertension Category: Medical Qualifiers: Hypertension type: primary hypertension Qualified Code(s): I10 - Essential (primary) hypertension (4) MIGUEL A (obstructive sleep apnea): Code(s): G47.33 - Obstructive sleep apnea (adult) (pediatric) Category: Medical (5) Permanent atrial fibrillation: Code(s): I48.21 - Permanent atrial fibrillation Category: Medical Plan 69 y/o to establish care past medical, surgical, social reviewed Patients afib, htn well controlled Persistent right upper quadrant pain with large hernia/mass noted on exam-CT orered Labs ordered Orders: Orders CT abdomen pelvis w IV con Today K46.9 - Unspecified abdominal hernia without obstruction or gangrene, R10.11 - Right upper quadrant pain Complete Blood Count Auto Diff 6 Months I10 - Essential (primary) hypertension, I48.21 - Permanent atrial fibrillation, Z13.0 - Encounter for screening for diseases of the blood and blood-forming organs and certain disorders involving the immune mechanism Comprehensive Met. Panel 6 Months I10 - Essential (primary) hypertension, I48.21 - Permanent atrial fibrillation, Z13.0 - Encounter for screening for diseases of the blood and blood-forming organs and certain disorders involving the immune mechanism Comprehensive Met. Panel Today K46.9 - Unspecified abdominal hernia without obstruction or gangrene, R10.11 - Right upper quadrant pain Lipid Panel 6 Months I10 - Essential (primary) hypertension, I48.21 - Permanent atrial fibrillation, Z13.0 - Encounter for screening for diseases of the blood and blood-forming organs and certain disorders involving the immune mechanism Referrals General Surgery Referral K46.9 - Unspecified abdominal hernia without obstruction or gangrene, R10.11 - Right upper quadrant pain
[2024-10-30 09:49] VITALS: BP 130/72; PULSE 62; RESP 16; TEMP 36.5; O2SAT 95; BMI 40.6
== END 2024-10-30 10:10 | disposition home or self-care (01) ==
LOC: HO.HMCHD 09:33
PROVIDERS: PCP Internal Medicine; Visit Provider Internal Medicine
DX: R10.11 Right upper quadrant pain (principal); K46.9 Unspecified abdominal hernia without obstruction or gangrene; I10 Essential (primary) hypertension; G47.33 Obstructive sleep apnea (adult) (pediatric); I48.21 Permanent atrial fibrillation

== ENCOUNTER 2024-10-30 10:14 | Outpatient (REF) | payer OTHER, SELFPAY ==
[2024-10-30 14:15] LABS: Alanine Aminotransferase 18 U/L (0-40); Albumin Level 4.3 g/dL (3.5-5.0); Alkaline Phosphatase 56 U/L (39-117); Anion Gap 11 (12-20); Aspartate Amino Transferase 24 U/L (5-37); Bilirubin Total 0.8 mg/dL (0.0-1.0); Blood Urea Nitrogen 17 mg/dL (9-16); Calcium 9.2 mg/dL (8.4-10.2); Carbon Dioxide 29 mmol/L (22-29); Chloride 104 mmol/L (96-108); Estimated Glomerular Filt Rate > 60; Glucose Random 119 mg/dL (60-115); Potassium 4.6 mmol/L (3.3-5.1); Sodium 139 mmol/L (135-145)
== END 2024-10-30 10:15 | disposition home or self-care (01) ==
LOC: HO.10HDL 10:14
PROVIDERS: Visit Provider Internal Medicine
DX: K46.9 Unspecified abdominal hernia without obstruction or gangrene (principal); R10.11 Right upper quadrant pain
CPT/HCPCS: 36415; 80053

== ENCOUNTER 2024-12-01 08:55 | Outpatient (AMB) | payer OTHER, SELFPAY ==
[2024-12-01 09:05] LABS: Prothrombin Time Whole Bld POC 30.8 sec (11.1-13.5); ~PT, ~INR - Anti Coag Clinic 2.6 (0.9-1.1)
--- NOTE | 2024-12-01 09:06 | MHC.OFFVISCO ---
Intake Intake Visit Reasons: Anticoagulation Allergies No Known Allergies Allergy (Mild, Verified 12/01/24 08:57) N/A Medication List - Last Reconciled 12/01/24 by Lola Davies RN bupropion HCl XL 300 mg PO QAM calcium carbonate 1,000 mg PO DAILY cholecalciferol (vitamin D3) 50 mcg PO DAILY clorazepate dipotassium 7.5 mg PO TID comp.stocking,thigh,long,large As directed, 30-40 mm Hg pressure compress.stocking,knee,reg,lrg As directed magnesium 500 mg PO DAILY metoprolol tartrate 50 mg PO BID multivitamin 1 tab PO DAILY pantoprazole 40 mg PO DAILY simvastatin 20 mg PO BEDTIME warfarin See Protocol 12.5MG X 2DAY/ 10MG X5DAYS; Nursing Note INR: 2.6 in therapeutic range Medications and supplements reviewed No changes in health, diet, medications, or supplements, Denies any signs and symptoms of bleeding or bruising or clotting. 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
== END 2024-12-01 09:09 | disposition home or self-care (01) ==
LOC: HO.ACS 08:55
PROVIDERS: PCP Internal Medicine; Visit Provider Internal Medicine Medical Oncology
DX: Z79.01 Long term (current) use of anticoagulants (principal)

== ENCOUNTER → 2024-12-01 08:55 | Outpatient (BNVA) | payer OTHER, SELFPAY | PROVIDERS: PCP Internal Medicine; Visit Provider Internal Medicine Medical Oncology | DX: Z79.01 Long term (current) use of anticoagulants (principal) | CPT/HCPCS: 85610; 99211 ==

== ENCOUNTER 2024-12-09 14:15 | Outpatient (AMB) | payer OTHER, SELFPAY ==
[2024-12-09 14:20] VITALS: BP 127/72; PULSE 74; O2SAT 96; BMI 39.8
--- NOTE | 2024-12-09 14:20 | MHC.OFFVIS ---
Vital Signs 12/09/24 14:20 Height 6 ft 1 in Weight 302 lb BMI 39.8 BP 127/72 Blood Pressure Location Rt brachial Position Sitting Pulse 74 Pulse Source Pulse Oximeter Pulse Oximetry (%) 96 Oxygen Delivery Method Room Air Intake Visit Reasons: Obstructive sleep apnea Allergies No Known Allergies Allergy (Mild, Verified 12/01/24 08:57) N/A HPI HPI Obstructive sleep apnea: Details: 69-year-old gentleman followed for moderate obstructive sleep apnea. After the last office visit patient had his repeat sleep study that showed AHI of 24, he has received his replaced machine and has been using it with good control of his underlying sleep apnea symptoms. [facility] Medical History Diverticulitis PAF (paroxysmal atrial fibrillation) Current use of anticoagulant therapy Surgical History History of colonoscopy (~11/28/15) No pertinent past surgical history Family History Mother Acute leukemia Father CVD (cardiovascular disease) Heart attack Social History Housing: House Alcohol intake: never Patient Tobacco Use Status: Never used Tobacco e-Cigarette/Vaping Use: Never Used Second Hand Smoke Exposure: No service: No Current occupational status: retired Current occupational exposures/hazards: No Cognitive needs: No Hearing needs: No Vision needs: Yes Review of Systems Const Denies daytime sleepiness, Denies excessive sweating, Denies fatigue, Denies fever(s), Denies lethargy, Denies malaise, Denies night sweats, Denies snoring and Denies weight loss Eyes Denies blurry vision and Denies itchy eyes ENT Denies nasal congestion, Denies post nasal drip, Denies sinus pain, Denies sinus pressure and Denies other ( Thrush) Card Denies chest pain, Denies pedal edema, Denies dyspnea, Denies orthopnea and Denies paroxysmal nocturnal dyspnea Resp Denies cough, Denies hemoptysis, Denies excessive phlegm production, Denies dyspnea, Denies snoring and Denies wheezing GI Denies abdominal pain and Denies heartburn Musc Denies myalgias, Denies arthralgias and Denies joint swelling Skin/Breast Denies rash Neuro Denies memory loss and Denies seizure-like activity Psych Denies abnormal sleep pattern, Denies anxiety and Denies memory loss Endo Denies excessive sweating, Denies fatigue and Denies heat intolerance Maurice/Lymph Denies easy bruising Aller/Immun Denies itchy eyes, Denies seasonal rhinorrhea and Denies wheezing Physical Exam Vital Signs: Last Vital Signs Pulse 74 12/09/24 14:20 BP 127/72 12/09/24 14:20 Pulse Ox 96 12/09/24 14:20 Oxygen Delivery Method Room Air 12/09/24 14:20 BMI result Body Mass Index 39.8 Const General: no acute distress and alert Nutritional Appearance: obese Orientation/consciousness: Other orientation findings ( oriented) HEENT Head: Yes atraumatic Eyes General: appearance normal, both eyes and all related structures Sclerae: sclerae normal EOM: EOMs intact bilaterally Neck Neck: Yes supple Lymphatic: no lymphadenopathy noted Resp Effort & Inspection: normal respiratory effort and no use of accessory muscles Auscultation: clear to auscultation bilaterally Cardio Rate: regular rate Rhythm: regular rhythm Heart sounds: no gallops, no murmurs and no rubs Skin General skin exam: other ( warm) Extrem General: No clubbing, No cyanosis and No edema Assessment & Plan Assessment & Plan (1) MIGUEL A (obstructive sleep apnea): Code(s): G47.33 - Obstructive sleep apnea (adult) (pediatric) Category: Medical Plan: Therapy and compliance report reviewed - patient is benefitting from and is compliant with noninvasive positive pressure ventilation treatment, using it greater than 70% of the time, more than 4 hours per night. Sleep apnea symptoms well controlled current CPAP therapy. Continue CPAP therapy. Coding Level of Care Code Est Pt Level 3 (21296) Diagnoses MIGUEL A (obstructive sleep apnea) G47.33
== END 2024-12-09 14:32 | disposition home or self-care (01) ==
LOC: HO.HPS 14:16
PROVIDERS: PCP Internal Medicine; Visit Provider Internal Medicine Pulmonary Disease
DX: G47.33 Obstructive sleep apnea (adult) (pediatric) (principal)
CPT/HCPCS: 99213

== ENCOUNTER 2024-12-16 07:41 | Outpatient (REF) | payer OTHER, SELFPAY ==
--- NOTE | ~2024-12-16 | CT_ITS ---
EXAMINATION: CT ABDOMEN AND PELVIS WITH CONTRAST CLINICAL INFORMATION: Right upper quadrant abdominal pain. COMPARISON: March 15, 2023. TECHNIQUE: Multidetector volumetric images were obtained from the superior aspect of the liver through the pubic symphysis following administration 85 mL of Omnipaque 350 intravenous contrast. Sagittal and coronal reformatted images were obtained on the technologist's workstation. Oral contrast: Yes This CT examination was performed using dose optimization techniques as appropriate, variously including the following: *Automated exposure control *Adjustment of mA and/or kV according to patient size (this includes techniques or standardized protocols for targeted exams where dose is matched to indication/reason for exam; i.e. extremities or head) *Use of iterative reconstruction technique DLP: 762 mGy centimeter. FINDINGS: LUNG BASES: No acute airspace disease. LIVER, GALLBLADDER, AND BILIARY TREE: Liver measures 22 cm. Mild decreased enhancement pattern. No focal lesion. The portal veins are patent. No intrahepatic biliary ductal dilatation. No pericholecystic fluid collection or gallbladder wall thickening. Common bile duct measures 4 mm. PANCREAS: No focal mass. No peripancreatic fluid collections. No main pancreatic ductal dilatation. SPLEEN: 11 cm. No focal lesion. ADRENAL GLANDS: No nodular lesions. KIDNEYS AND URETERS: No hydronephrosis. No gross nephrolithiasis. 3.5 cm exophytic cyst, lower pole right kidney. No gross renal mass. Normal enhancement pattern of the renal parenchyma. BLADDER: Fluid-filled. GASTROINTESTINAL TRACT: Numerous diverticula throughout the left hemicolon mostly in the sigmoid colon. No pericolonic edema pattern. No intestinal wall thickening. No intestinal obstruction pattern. No pneumatosis intestinalis. No peripheral enhancing fluid collections, peritoneal cavity. No pneumoperitoneum. No ascites. Appendix is normal. ABDOMINAL WALL: Fat-containing umbilical and supraumbilical hernias. LYMPH NODES: Nonspecific bilateral prominent mesenteric and retroperitoneum. VASCULAR: Calcified plaques throughout the abdominal aorta wall and the origin of the mesenteric arteries the main renal arteries and iliac arteries. No aneurysm or dissection, abdominal aorta. Calcified plaques in the coronary arteries. There is tortuosity throughout the descending thoracic aorta and distal abdominal aorta. PELVIC VISCERA: Heterogeneous mildly prominent prostate gland. OSSEOUS STRUCTURES: Multilevel syndesmophyte formation and marginal osteophyte formation throughout the axial skeleton. Central spinal canal and right lateral neuroforamina narrowing at L4-5 and L5-S1. No acute fracture. No acute fracture or dislocation in either hip. Bony pelvis is. CT/CT abdomen pelvis w IV con IMPRESSION: Hepatomegaly and mild and steatosis. Diverticular disease, left hemicolon. Fat-containing umbilical and supraumbilical hernias. 3.5 cm exophytic cyst, right kidney. Coronary artery disease and atherosclerosis disease. Spondylosis more pronounced at L4-5 and L5-S1. Fleischner guidelines were followed. Electronically signed by: Mode Saha MD 12/16/2024 11:51 AM EDT
[2024-12-16] MEDS: iohexoL 350 MG/ML 100 ML INFUS..BTL IV (11:36)
[2024-12-16 13:49] LABS: Creatinine POC 1.0 mg/dL (0.5-1.4); GFR POC > 60
== END 2024-12-16 07:42 | disposition home or self-care (01) ==
LOC: HO.CT 07:41
PROVIDERS: PCP Internal Medicine; Visit Provider Internal Medicine
DX: R10.11 Right upper quadrant pain (principal); K46.9 Unspecified abdominal hernia without obstruction or gangrene
CPT/HCPCS: 74177; 82565; Q9967

== ENCOUNTER → 2024-12-16 07:45 | Outpatient (BNV) | payer OTHER, SELFPAY | PROVIDERS: PCP Internal Medicine; Visit Provider Radiology Diagnostic Radiology | DX: N28.1 Cyst of kidney, acquired (principal); K57.30 Diverticulosis of large intestine without perforation or abscess without bleeding; R16.0 Hepatomegaly, not elsewhere classified; I25.10 Atherosclerotic heart disease of native coronary artery without angina pectoris; M47.816 Spondylosis without myelopathy or radiculopathy, lumbar region | CPT/HCPCS: 74177 ==

== ENCOUNTER 2024-12-30 14:08 | Outpatient (AMB) | payer OTHER, SELFPAY ==
--- NOTE | 2024-12-30 14:16 | A.OFFVIS_ITS ---
Vital Signs 12/30/24 14:24 Height 6 ft 1 in Weight 304 lb BMI 40.1 BP 134/80 Blood Pressure Location Rt brachial Position Sitting Pulse 75 Intake Visit Reasons: Abdominal hernia Intake Note: Patient referred by pcp Dr. Villaseñor for Abdominal hernia. Umbilical hernia has been present for about 20yrs. Patient c/o: RUQ pain. Sometimes certain foods like yogurt make it worse. Denies nausea, diarrhea, constipation. Abdomen pelvis CT: 12-16-2024 Youth Care Worker Required: No Accompanied by: Self / Same As Patient Allergies No Known Allergies Allergy (Mild, Verified 12/30/24 14:22) N/A Medication List - Last Reconciled 12/30/24 by Dario Tracey MD barium sulfate 2.1%(w/v),2.0%(w/w) 1 bottle two times daily for one day per radiology instructions bupropion HCl XL 300 mg PO QAM calcium carbonate 1,000 mg PO DAILY cholecalciferol (vitamin D3) 50 mcg PO DAILY clorazepate dipotassium 7.5 mg PO TID comp.stocking,thigh,long,large As directed, 30-40 mm Hg pressure compress.stocking,knee,reg,lrg As directed magnesium 500 mg PO DAILY metoprolol tartrate 50 mg PO BID multivitamin 1 tab PO DAILY pantoprazole 40 mg PO DAILY simvastatin 20 mg PO BEDTIME warfarin See Protocol 12.5MG X 2DAY/ 10MG X5DAYS; HPI HPI Abdominal hernia: Details: 69-year-old male referred for periumbilical hernias. He actually underwent a CAT scan for right sided abdominal pain 2 weeks ago. There was an incidental finding of 2 hernias. One was an umbilical hernia, fat containing and the other 1 was a supraumbilical hernia also fat containing He says he really has had no pain or tenderness in the area. He said he was not even away had a hernia although he admits to having appeared to be a small bulging area on the umbilicus for about 20 years He denies GI complaints He has atrial fibrillation and is on Eliquis. COUNT INCLUDES THE [facility] Medical History (Updated 12/30/24 @ 14:46 by Dario Tracey MD) Morbid obesity Diverticulitis PAF (paroxysmal atrial fibrillation) Current use of anticoagulant therapy Surgical History History of colonoscopy (~11/28/15) No pertinent past surgical history Family History Mother Acute leukemia Father CVD (cardiovascular disease) Heart attack Social History Housing: House Alcohol intake: never Patient Tobacco Use Status: Never used Tobacco e-Cigarette/Vaping Use: Never Used Second Hand Smoke Exposure: No service: No Current occupational status: retired Current occupational exposures/hazards: No Cognitive needs: No Hearing needs: No Vision needs: Yes Review of Systems Const Denies chills and Denies fever(s) Card Denies chest pain, Denies dyspnea and Denies dyspnea on exertion Resp Denies cough, Denies dyspnea and Denies dyspnea on exertion GI Denies hematochezia and Denies change in bowel habits Denies hematuria and Denies difficulty urinating Musc Denies back pain and Denies limited range of motion Neuro Denies focal weakness and Denies convulsions Psych Denies depression and Denies mood swings Physical Exam Vital Signs: Last Vital Signs Pulse 75 12/30/24 14:24 BP 134/80 12/30/24 14:24 BMI result Body Mass Index 40.1 Const Other: Morbidly obese General: comfortable and no acute distress Orientation/consciousness: patient oriented x3 Neck Neck: Yes no lymphadenopathy Resp Auscultation: clear to auscultation bilaterally Cardio Other: Irregular rhythm GI Other: Small, vague hernia felt on Valsalva just above the umbilicus Palpation (GI): Soft to palpation, nontender and no guarding Neuro General: patient oriented x3 Assessment & Plan Assessment & Plan (1) Abdominal hernia: Code(s): K46.9 - Unspecified abdominal hernia without obstruction or gangrene Category: Medical Qualifiers: Hernia type: unspecified Obstruction and gangrene presence: without obstruction or gangrene Recurrence: not specified as recurrent Qualified Code(s): K46.9 - Unspecified abdominal hernia without obstruction or gangrene Plan: He had a CAT scan for sided abdominal pain and was noted to have 2 small hernias. One is an umbilical hernia, about 1 cm defect, fat containing. There is a small supra umbilical hernia as well, fat containing. He actually says he does not have any symptoms pertaining to the hernias. He says that he may have had this lumps for over 20 years but these have not bother him at all He wants to hold off on hernia repair at this time. He says he is also going to talk to his credit checker about the option of proceeding with hernia repair. I did explain to him the technique of repair. I reviewed the risks including but not limited to bleeding, infections, injury to bowel, recurrence, as well as the benefits and alternatives He says he understands. He says he will come back to the office if he decides to proceed. Coding Level of Care Code New Pt Level 3 (01942) Diagnoses Abdominal hernia without obstruction and without gangrene, recurrence not specified, unspecified hernia type K46.9 Hernia type: unspecified Obstruction and gangrene presence: without obstruction or gangrene Recurrence: not specified as recurrent
[2024-12-30 14:24] VITALS: BP 134/80; PULSE 75; BMI 40.1
== END 2024-12-30 14:37 | disposition home or self-care (01) ==
LOC: HO.HGS 14:08
PROVIDERS: PCP Internal Medicine; Visit Provider Surgery
DX: K46.9 Unspecified abdominal hernia without obstruction or gangrene (principal)
CPT/HCPCS: 99203

== ENCOUNTER 2025-01-12 08:39 | Outpatient (AMB) | payer OTHER, SELFPAY ==
[2025-01-12 08:58] LABS: Prothrombin Time Whole Bld POC 30.7 sec (11.1-13.5); ~PT, ~INR - Anti Coag Clinic 2.6 (0.9-1.1)
--- NOTE | 2025-01-12 09:02 | MHC.OFFVISCO ---
Intake Intake Visit Reasons: Anticoagulation Allergies No Known Allergies Allergy (Mild, Verified 01/12/25 08:50) N/A Medication List - Last Reconciled 01/12/25 by Lola Davies RN barium sulfate 2.1%(w/v),2.0%(w/w) 1 bottle two times daily for one day per radiology instructions bupropion HCl XL 300 mg PO QAM calcium carbonate 1,000 mg PO DAILY cholecalciferol (vitamin D3) 50 mcg PO DAILY clorazepate dipotassium 7.5 mg PO TID comp.stocking,thigh,long,large As directed, 30-40 mm Hg pressure compress.stocking,knee,reg,lrg As directed magnesium 500 mg PO DAILY metoprolol tartrate 50 mg PO BID multivitamin 1 tab PO DAILY pantoprazole 40 mg PO DAILY simvastatin 20 mg PO BEDTIME warfarin See Protocol 12.5MG X 2DAY/ 10MG X5DAYS; Nursing Note INR: 2.6 in therapeutic range Medications and supplements reviewed No changes in health, diet, medications, or supplements, Denies any signs and symptoms of bleeding or bruising or clotting. Bleeding, bruising, clotting discussed Nutritional guidance given Dose: 5MG X 1 DAY/10MG X 6 DAYS F/U INR: 1 MONTH Patient verbalizes understanding of instructions given Anti-Coag Initial Assessment Social Hx Patient Tobacco Use Status: Never used Tobacco alcohol intake: never Coding Level of Care Code Est Patient Level 1 Diagnoses Current use of anticoagulant therapy Z79.01 Results AMB INR Fingerstick AMB INR Fingerstick 2.6 Last Edit by Lola Davies RN on 01/12/25 09:00 MANUAL ENTRY Assessment & Plan Assessment & Plan (1) Current use of anticoagulant therapy: Code(s): Z79.01 - longterm (current) use of anticoagulants Category: Medical
== END 2025-01-12 09:03 | disposition home or self-care (01) ==
LOC: HO.ACS 08:39
PROVIDERS: PCP Internal Medicine; Visit Provider Internal Medicine Medical Oncology
DX: Z79.01 Long term (current) use of anticoagulants (principal)

== ENCOUNTER → 2025-01-12 08:39 | Outpatient (BNVA) | payer OTHER, SELFPAY | PROVIDERS: PCP Internal Medicine; Visit Provider Internal Medicine Medical Oncology | DX: I48.19 Other persistent atrial fibrillation (principal); Z79.01 Long term (current) use of anticoagulants; Z51.81 Encounter for therapeutic drug level monitoring | CPT/HCPCS: 85610; 99211 ==

== ENCOUNTER 2025-01-19 08:24 | Outpatient (AMB) | payer OTHER, SELFPAY ==
[2025-01-19 08:45] VITALS: BP 120/72; PULSE 78; BMI 40.0
--- NOTE | 2025-01-19 08:45 | A.OFFVIS_ITS ---
Vital Signs 01/19/25 08:45 Height 6 ft 1 in Weight 302 lb 14.642 oz BMI 40.0 BP 120/72 Blood Pressure Location Rt brachial Position Sitting Pulse 78 Pulse Source Monitor Intake Visit Reasons: Follow up (KM) Explosives Operator Required: No Allergies No Known Allergies Allergy (Mild, Verified 01/19/25 08:48) N/A Medication List - Last Reconciled 01/19/25 by Ruthann Jonas NP-Simeon barium sulfate 2.1%(w/v),2.0%(w/w) 1 bottle two times daily for one day per radiology instructions bupropion HCl XL 300 mg PO QAM calcium carbonate 1,000 mg PO DAILY cholecalciferol (vitamin D3) 50 mcg PO DAILY clorazepate dipotassium 7.5 mg PO TID comp.stocking,thigh,long,large As directed, 30-40 mm Hg pressure compress.stocking,knee,reg,lrg As directed magnesium 500 mg PO DAILY metoprolol tartrate 50 mg PO BID multivitamin 1 tab PO DAILY pantoprazole 40 mg PO DAILY simvastatin 20 mg PO BEDTIME warfarin See Protocol 12.5MG X 2DAY/ 10MG X5DAYS; HPI HPI Follow up (KM): Details: Steph is a 70-year-old male with past medical history of morbid obesity, hypertension, venous insufficiency, obstructive sleep apnea with CPAP use, chronic atrial fibrillation who presents for follow-up. His last prior visit was 02/19/2024. Today he reports he has been doing generally well over the last year. No concerning heart palpitations. No lightheadedness, presyncope, syncope. No chest discomfort, shortness of breath, activity intolerance. He has busy with gardening and tries to go for walks when the weather is good. He has chronic nonpitting lower leg edema related to venous insufficiency. He states this overall is stable. He is compliant with his medications. No bleeding issues reported. He attends the [facility] anticoagulation clinic for INR monitoring. [facility] Medical History Morbid obesity Diverticulitis PAF (paroxysmal atrial fibrillation) Current use of anticoagulant therapy Surgical History History of colonoscopy (~11/28/15) No pertinent past surgical history Family History Mother Acute leukemia Father CVD (cardiovascular disease) Heart attack Social History Housing: House Alcohol intake: never Patient Tobacco Use Status: Never used Tobacco e-Cigarette/Vaping Use: Never Used Second Hand Smoke Exposure: No service: No Current occupational status: retired Current occupational exposures/hazards: No Cognitive needs: No Hearing needs: No Vision needs: Yes Review of Systems Const All systems reviewed & are unremarkable except as noted in HPI and below ENT Denies dizziness Card Denies chest pain, Denies chest pain at rest, Denies chest pain with activity, Denies rapid heart rate, Denies pedal edema, Denies edema, Reports leg edema, Denies lightheadedness, Denies palpitations, Denies dyspnea, Denies dyspnea on exertion and Denies orthopnea Resp Denies cough, Denies dyspnea and Denies dyspnea on exertion GI Denies hematochezia and Denies change in stool character Musc Denies abnormal gait, Denies limited range of motion, Denies muscle cramps, Denies muscle weakness, Denies numbness, Denies radiating pain into limb, Denies stiffness and Denies tingling Neuro Denies abnormal gait, Denies dizziness, Denies numbness and Denies tingling Endo Denies palpitations Physical Exam Vital Signs: Last Vital Signs Pulse 78 01/19/25 08:45 BP 120/72 01/19/25 08:45 BMI result Body Mass Index 40.0 Const General: cooperative, healthy appearing, comfortable and no acute distress Orientation/consciousness: patient oriented x3 Neck Neck: Yes normal visual inspection Resp Effort & Inspection: normal respiratory effort Auscultation: clear to auscultation bilaterally, no rales, no rhonchi and no whe ezes Cardio Rate: regular rate Rhythm: abnormal rhythm Heart sounds: S1 normal heart sound present, S2 normal heart sound present, no gallops, no murmurs and no rubs Neuro General: patient oriented x3 Extrem Other: soft nonpitting bilateral lower leg edema, venous stasis changes left lower leg Psych Appearance: grossly normal Mental Status: mental status grossly normal Speech and movement: Normal speech and movement present Office Procedures EKG Details: Today, read by me, atrial fibrillation, LAFB, LVH, possible lateral infarct, rate 78, Qtc 451ms [id number], Complete Assessment & Plan Assessment & Plan (1) Chronic atrial fibrillation: Code(s): I48.20 - Chronic atrial fibrillation, unspecified Category: Medical Plan: History of chronic atrial fibrillation that is treated with heart rate control and is asymptomatic. EKG done today showing atrial fibrillation, rate 78. Echocardiogram done 03/16/2024 showed EF 50-55%, normal RV, mild increase in left atrial pressure, no pulmonary hypertension. He has a history of sleep apnea and reports compliance with his mask. Continue metoprolol tartrate 50 mg b.i.d.. Continue Coumadin for anticoagulation with INR goal 2-3. Cardiology follow-up 9 months, sooner if needed. (2) Venous insufficiency: Code(s): I87.2 - Venous insufficiency (chronic) (peripheral) Category: Medical Plan: History of venous insufficiency with venous stasis changes left lower extremity and chronic bilateral nonpitting edema in his lower legs. Condition stable at this time. He has compression stockings to use. (3) Hypertension: Code(s): I10 - Essential (primary) hypertension Category: Medical Qualifiers: Hypertension type: primary hypertension Qualified Code(s): I10 - Essential (primary) hypertension Plan: Blood pressure goal less than 130/80. Well controlled at this time. Continue metoprolol. (4) Current use of anticoagulant therapy: Comment: On Coumadin Code(s): Z79.01 - intermodal customer service (current) use of anticoagulants Category: Medical Plan: Follows at [facility] anticoagulation Clinic (5) MIGUEL A (obstructive sleep apnea): Code(s): G47.33 - Obstructive sleep apnea (adult) (pediatric) Category: Medical Plan: Compliant with CPAP Plan Time spent on chart review, documentation, interview and assessment Coding Level of Care Code Est Pt Level 4 (57847) Complex EM visit Add On G2211 Diagnoses Chronic atrial fibrillation I48.20 Venous insufficiency I87.2 Primary hypertension I10 Hypertension type: primary hypertension Current use of anticoagulant therapy Z79.01 MIGUEL A (obstructive sleep apnea) G47.33 CPT Codes EKG - CPT: [id number], Complete ([id number]) Time Spent (min) 28
== END 2025-01-19 09:13 | disposition home or self-care (01) ==
LOC: HO.HCS 08:25
PROVIDERS: PCP Internal Medicine; Visit Provider Nurse Practitioner Family
DX: I48.20 Chronic atrial fibrillation, unspecified (principal); I87.2 Venous insufficiency (chronic) (peripheral); I10 Essential (primary) hypertension; Z79.01 Long term (current) use of anticoagulants; G47.33 Obstructive sleep apnea (adult) (pediatric)
CPT/HCPCS: 93010; 99214

== ENCOUNTER → 2025-01-19 08:24 | Outpatient (BNVA) | payer OTHER, SELFPAY | PROVIDERS: PCP Internal Medicine; Visit Provider Nurse Practitioner Family | DX: I10 Essential (primary) hypertension (principal) | CPT/HCPCS: 93005 ==

== ENCOUNTER 2025-02-23 08:24 | Outpatient (AMB) | payer OTHER, SELFPAY ==
[2025-02-23 08:40] LABS: Prothrombin Time Whole Bld POC 31.7 sec (11.1-13.5); ~PT, ~INR - Anti Coag Clinic 2.6 (0.9-1.1)
--- NOTE | 2025-02-23 08:41 | MHC.OFFVISCO ---
Intake Intake Visit Reasons: Anticoagulation Allergies No Known Allergies Allergy (Mild, Verified 02/23/25 08:34) N/A Medication List - Last Reconciled 02/23/25 by Heide Pascal, RN barium sulfate 2.1%(w/v),2.0%(w/w) 1 bottle two times daily for one day per radiology instructions bupropion HCl XL 300 mg PO QAM calcium carbonate 1,000 mg PO DAILY cholecalciferol (vitamin D3) 50 mcg PO DAILY clorazepate dipotassium 7.5 mg PO TID comp.stocking,thigh,long,large As directed, 30-40 mm Hg pressure compress.stocking,knee,reg,lrg As directed magnesium 500 mg PO DAILY metoprolol tartrate 50 mg PO BID multivitamin 1 tab PO DAILY pantoprazole 40 mg PO DAILY simvastatin 20 mg PO BEDTIME warfarin See Protocol 12.5MG X 2DAY/ 10MG X5DAYS; Nursing Note INR: 2.6 in therapeutic range of 2-3 Medications and supplements reviewed No changes in health, diet, medications, or supplements, Denies any signs and symptoms of bleeding or bruising or clotting. Bleeding, bruising, clotting discussed Nutritional guidance given Dose: 10mg X 6 days and 5mg X 1 day () F/U INR: 6 weeks Patient verbalizes understanding of instructions given Anti-Coag Initial Assessment Social Hx Patient Tobacco Use Status: Never used Tobacco alcohol intake: never Coding Level of Care Code Est Patient Level 1 Diagnoses Current use of anticoagulant therapy Z79.01 Assessment & Plan Assessment & Plan (1) Current use of anticoagulant therapy: Comment: On Coumadin Code(s): Z79.01 - [facility] (current) use of anticoagulants Category: Medical
== END 2025-02-23 08:44 | disposition home or self-care (01) ==
LOC: HO.ACS 08:24
PROVIDERS: PCP Internal Medicine; Visit Provider Internal Medicine Medical Oncology
DX: Z79.01 Long term (current) use of anticoagulants (principal)

== ENCOUNTER → 2025-02-23 08:24 | Outpatient (BNVA) | payer OTHER, SELFPAY | PROVIDERS: PCP Internal Medicine; Visit Provider Internal Medicine Medical Oncology | DX: I48.19 Other persistent atrial fibrillation (principal); Z79.01 Long term (current) use of anticoagulants; Z51.81 Encounter for therapeutic drug level monitoring | CPT/HCPCS: 85610; 99211 ==

== ENCOUNTER 2025-03-05 08:46 | Outpatient (AMB) | payer OTHER, SELFPAY ==
--- NOTE | 2025-03-05 08:47 | MHC.PC.OV ---
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 Accompanied by: Self / Same As Patient Allergies No Known Allergies Allergy (Mild, Verified 03/05/25 08:47) N/A Tobacco use date assessed: 03/05/25 Fall risk assessment: No Falls in past year Last assessed Fall Risk: 03/05/25 Dental Screening Dental Screen Date: 03/05/25 Did you have a dental visit in the last 12 months?: Yes Did you have a dental problem in the last 6 months where you did not have access to dental care?: No Was dental information given to patient?: Patient has dentist HPI HPI Comments History of Present Illness Details The patient is a 70-year-old male presenting with a follow-up visit for chronic conditions and medication management. The patient has a known history of Stage 3 Chronic Kidney Disease (CKD) with fluctuating kidney function over the years. No acute symptoms related to CKD were discussed during the visit, but the patient mentioned an upcoming nephrology appointment for further evaluation. He also manages hyperlipidemia with simvastatin, and the last cholesterol levels, checked in October, appeared slightly elevated. The history of Atrial Fibrillation is managed with warfarin and metoprolol tartrate, and the patient reported that he attends a coagulation clinic where his INR is monitored, maintaining a level of 2.6. The patient is treated for depression with bupropion, though he mentioned a need for refill. The gastroesophageal reflux disease has been managed with Protonix, and he did not report any additional symptoms or concerns relating to GERD during this visit. The patient reported post-surgical complications where laser surgery was performed on his left leg, leading to pigmented lesions that are enlarging. He also experiences swelling in the legs which has reportedly improved upon elevating them. Medical History: - Stage 3 Chronic Kidney Disease - Hyperlipidemia - Atrial Fibrillation (AFib) - Depression - Gastroesophageal Reflux Disease (GERD) Surgical History: - Laser surgery on left leg for varicosities or similar condition Medications: - Simvastatin for hyperlipidemia - Warfarin for atrial fibrillation - Metoprolol tartrate for atrial fibrillation - Bupropion for depression - Protonix for gastroesophageal reflux disease - Possibly clonazepam or similar medication (dubious name mentioned as Tranexan with long-term dependence) Diagnostic Results: - Lab results from November indicated satisfactory kidney function - Cholesterol levels in October were elevated Social: - Reports managing medications at home, with specific coordination with a coagulation clinic for INR monitoring [facility] Medical History (Updated 03/05/25 @ 09:13 by Larry Scruggs MD) Depression Hyperlipidemia Benzodiazepine dependence, continuous GERD (gastroesophageal reflux disease) CKD stage 3a, GFR 45-59 ml/min Morbid obesity Diverticulitis PAF (paroxysmal atrial fibrillation) Current use of anticoagulant therapy Surgical History History of colonoscopy (~11/28/15) No pertinent past surgical history Family History Mother Acute leukemia Father CVD (cardiovascular disease) Heart attack Social History Housing: House Alcohol intake: never Patient Tobacco Use Status: Former Tobacco user Years Smoked: 8 years-quit 50 years ago e-Cigarette/Vaping Use: Never Used Second Hand Smoke Exposure: No service: No Current occupational status: retired Current occupational exposures/hazards: No Cognitive needs: No Hearing needs: No Vision needs: Yes Questionnaire AUDIT C Alcohol Use Questionnaire (AUDIT-C) 1. How often do you have a drink containing alcohol?: Never 3. How often do you have six or more drinks on one occasion?: Never Total Score: 0 Review of Systems Const Details: - Cardiovascular: Denies chest pain or shortness of breath - Gastrointestinal: Denies nausea or vomiting - Neurological: Denies headaches or vision changes - Dermatological: Reports pigmented lesions on left leg All systems reviewed & are unremarkable except as reviewed in HPI and above Physical exam (Primary Care) Vital Signs: Last Vital Signs Temp 97.1 F 03/05/25 08:53 Pulse 61 03/05/25 08:53 Resp 18 03/05/25 08:53 BP 118/68 03/05/25 08:53 Pulse Ox 98 03/05/25 08:53 Oxygen Delivery Method Room Air 03/05/25 08:53 BMI result Body Mass Index 39.3 Tobacco/Smoking Status: Tobacco use Status Tobacco use date assessed 03/05/25 03/05/25 08:55 Patient Tobacco Use Status Former Tobacco user 03/05/25 08:55 e-Cigarette/Vaping Use Never Used 03/05/25 08:55 Const Other: General: Alert and oriented, Well nourished, No acute distress. Eye: Pupils are equal, round and reactive to light, Intact accommodation, Extraocular movements are intact, Normal conjunctiva, Vision unchanged. HENT: Normocephalic, Atraumatic, Tympanic membranes are clear, Normal hearing, Oral mucosa is moist, No pharyngeal erythema, Ear canals patent. Respiratory: Lungs CTA bilaterally, No wheeze, Respirations are non-labored. Cardiovascular: Regular rate, Regular rhythm, S1 auscultated, S2 auscultated, No murmur, Good pulses equal in all extremities, Normal peripheral perfusion, No edema. Gastrointestinal: Soft, Non-tender, Non-distended, Normal bowel sounds, No organomegaly. Musculoskeletal: Normal range of motion, Normal strength, No tenderness, No swelling, No deformity, Normal gait. Integumentary: Warm, Dry, [place], Intact. Neurologic: Alert, Oriented, Normal sensory, Normal motor function, No focal defects, Cranial Nerves II-XII are grossly intact, Normal deep tendon reflexes. Psychiatric: Cooperative, Appropriate mood & affect, Normal judgment. Coding Level of Care Code Est Pt Level 4 (55280) Complex EM visit Add On G2211 Diagnoses Primary hypertension I10 Hypertension type: primary hypertension Chronic atrial fibrillation I48.20 Venous insufficiency I87.2 CKD stage 3a, GFR 45-59 ml/min N18.31 Gastroesophageal reflux disease, unspecified whether esophagitis present K21.9 Esophagitis presence: esophagitis presence not specified Benzodiazepine dependence, continuous F13.20 Hyperlipidemia, unspecified hyperlipidemia type E78.5 Hyperlipidemia type: unspecified Depression, unspecified depression type F32.A Depression Type: unspecified Assessment & Plan Assessment & Plan (1) Hypertension: Comment: - Continue Metoprolol Tartrate 50mg BID Code(s): I10 - Essential (primary) hypertension Category: Medical Qualifiers: Hypertension type: primary hypertension Qualified Code(s): I10 - Essential (primary) hypertension (2) Chronic atrial fibrillation: Comment: - Continue Metoprolol Tartrate 50mg BID & Warfarin (Managed by [facility]) Code(s): I48.20 - Chronic atrial fibrillation, unspecified Category: Medical (3) Venous insufficiency: Comment: Extensive history of lower extremity swelling and edema and previously on compression stockings which he is not actively using. Underwent ablation of his left leg but continues to have symptoms with lichenification of his left lower extremity Code(s): I87.2 - Venous insufficiency (chronic) (peripheral) Category: Medical (4) CKD stage 3a, GFR 45-59 ml/min: Comment: - Monitor kidney function in collaboration with systems coordinator. Code(s): N18.31 - Chronic kidney disease, stage 3a Category: Medical (5) GERD (gastroesophageal reflux disease): Code(s): K21.9 - Gastro-esophageal reflux disease without esophagitis Category: Medical Qualifiers: Esophagitis presence: esophagitis presence not specified Qualified Code(s): K21.9 - Gastro-esophageal reflux disease without esophagitis (6) Benzodiazepine dependence, continuous: Comment: Has been on clorazepate dipotassium 7.5 mg t.i.d. for the past 35-40 years for depression. Given his extensive history of use and him reporting that whenever he misses a single dose he develops vision changes we will look into options to help with weaning and withdrawal of the medications. Code(s): F13.20 - Sedative, hypnotic or anxiolytic dependence, uncomplicated Category: Medical (7) Hyperlipidemia: Comment: - Monitor kidney function in collaboration with systems coordinator. Code(s): E78.5 - Hyperlipidemia, unspecified Category: Medical Qualifiers: Hyperlipidemia type: unspecified Qualified Code(s): E78.5 - Hyperlipidemia, unspecified (8) Depression: Comment: - Bupropion treatment to continue, refilled prescription. Code(s): F32.A - Depression, unspecified Category: Medical Qualifiers: Depression Type: unspecified Qualified Code(s): F32.A - Depression, unspecified Plan: Health Maintenance: - Reassess scheduled for physical in five months - No additional lab work necessary at current visit Patient was informed and verbally consented to the use of an ambient scribe for clinic note documentation during this visit. Plan During today's consultation, I reviewed the patient's chronic conditions, including Stage 3 CKD, hyperlipidemia, AFib, and GERD. We discussed the importance of continued adherence to current medications to maintain control over these conditions, emphasizing the risk and benefit profile of each medication. Particularly, we reviewed the long-term use of tranexamic medications (possibly clonazepam), outlining its dependence potential and discussed a future plan for tapering this medication cautiously to mitigate risks of withdrawal symptoms and additional health risks such as dementia. The patient's next nephrology appointment was noted, and the importance of monitoring kidney functions was emphasized. We plan to conduct a comprehensive review of his condition during his physical in five months to strategize the tapering plan of the long-term medication. The patient demonstrated understanding and expressed agreement with the outlined plan. Medications: Changed From bupropion HCl XL 300 mg PO QAM To bupropion HCl XL 300 mg PO QAM 90 tabs 3RF 90 days Refilled clorazepate dipotassium 7.5 mg PO TID 270 tabs 1RF anxiety Patient Instructions: - Elevate legs regularly to reduce swelling. - Continue taking all medications as prescribed. - Follow up in five months for a comprehensive physical examination. - Attend the upcoming systems coordinator appointment next week. - Report any concerning symptoms, such as new pain, swelling, or changes in medication tolerance, promptly.
[2025-03-05 08:53] VITALS: BP 118/68; PULSE 61; RESP 18; TEMP 36.2; O2SAT 98; BMI 39.3
== END 2025-03-05 09:07 | disposition home or self-care (01) ==
PROVIDERS: PCP Student in an Organized Health Care Education/Training Program; Visit Provider Student in an Organized Health Care Education/Training Program
DX: I10 Essential (primary) hypertension (principal); I48.20 Chronic atrial fibrillation, unspecified; I87.2 Venous insufficiency (chronic) (peripheral); N18.31 Chronic kidney disease, stage 3a; K21.9 Gastro-esophageal reflux disease without esophagitis; F13.20 Sedative, hypnotic or anxiolytic dependence, uncomplicated; E78.5 Hyperlipidemia, unspecified; F32.A Depression, unspecified

== ENCOUNTER 2025-03-16 08:44 | Outpatient (AMB) | payer OTHER, SELFPAY ==
--- NOTE | 2025-03-16 09:00 | A.OFFVIS_ITS ---
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 Accompanied by: Self / Same As Patient Allergies No Known Allergies Allergy (Mild, Verified 03/16/25 09:26) N/A Medication List - Last Reconciled 03/16/25 by SHALA Godinez- bupropion HCl XL 300 mg PO QAM 90 days calcium carbonate 1,000 mg PO DAILY cholecalciferol (vitamin D3) 50 mcg PO DAILY clorazepate dipotassium 7.5 mg PO TID comp.stocking,thigh,long,large As directed, 30-40 mm Hg pressure compress.stocking,knee,reg,lrg As directed magnesium 500 mg PO DAILY metoprolol tartrate 50 mg PO BID multivitamin 1 tab PO DAILY pantoprazole 40 mg PO DAILY simvastatin 20 mg PO BEDTIME warfarin See Protocol 12.5MG X 2DAY/ 10MG X5DAYS; HPI Comments Details: Steph is a pleasant 70-year-old male patient of Dr. Brittany Stuart. He has a past medical history of chronic kidney disease, depression, hyperlipidemia, GERD, obesity, diverticulitis, and paroxysmal AFib on anticoagulation. He presents to the office today as a new patient for renal cysts. In discussion with the patient today he reports following up with his new PCP in discussing ongoing right upper quadrant pain he had been experiencing at which time a CT was ordered and renal cyst was noted and recommendations were made for urology referral for further assessment evaluation. These results were reviewed and communicated with the patient today. 01/08 no hydronephrosis or nephrolithiasis noted bilaterally. 3.5 cm exophytic cyst lower pole of the right kidney. No gross renal mass. Normal enhancement pattern of the renal parenchyma. The bladder is fluid-filled. When asked he does report noting episodes of bladder pressure in the morning however once he utilizes the bathroom he feels bladder pressure subsides. He denies urinary urgency, urinary frequency, incontinence, nocturia, hematuria, dysuria, foul smelling urine, changes to urinary stream, flank pain, fever, and or chills. He is happy with his current voiding parameters. In review of patient's chart it appears PSAs are as follows: PSA; 06/03 0.8, 03/07 1.8, 05/07 1.0, 07/09 1.7 We discussed at length potential causes of renal cysts as well as surveillance monitoring. We did discussed further treatment options and risks and benefits of these treatment options. All questions were answered. He otherwise offers no other issues or concerns at this time. [facility] Medical History Depression Hyperlipidemia Benzodiazepine dependence, continuous GERD (gastroesophageal reflux disease) CKD stage 3a, GFR 45-59 ml/min Morbid obesity Diverticulitis PAF (paroxysmal atrial fibrillation) Current use of anticoagulant therapy Surgical History History of colonoscopy (~11/28/15) No pertinent past surgical history Family History Mother Acute leukemia Father CVD (cardiovascular disease) Heart attack Social History Housing: House Alcohol intake: never Patient Tobacco Use Status: Former Tobacco user Years Smoked: 8 years-quit 50 years ago e-Cigarette/Vaping Use: Never Used Second Hand Smoke Exposure: No service: No Current occupational status: retired Current occupational exposures/hazards: No Cognitive needs: No Hearing needs: No Vision needs: Yes Review of Systems Const All systems reviewed & are unremarkable except as noted in HPI and below Physical Exam Const General: cooperative, healthy appearing, comfortable, no acute distress, well developed, alert and awake Nutritional Appearance: overweight Orientation/consciousness: patient oriented x3 Limitations: no limitations HEENT Head: Yes normal to inspection, Yes normocephalic and Yes atraumatic Ears: hearing grossly normal bilaterally Eyes General: appearance normal, both eyes and all related structures Neck Neck: Yes normal visual inspection and Yes trachea midline Chest Chest palpation & inspection: normal inspection of the chest Resp Effort & Inspection: normal respiratory effort and able to speak in complete sentences Cardio Rate: regular rate GI Inspection: Yes normal to inspection General: Yes no CVA tenderness Back/Spine/Pelvis Back: no CVA tenderness Skin General skin exam: no rashes or lesions noted Neuro General: patient oriented x3 Extrem General: Yes normal to inspection Psych Appearance: grossly normal and well kempt Mental Status: mental status grossly normal Speech and movement: Normal speech and movement present and Clear speech present Affect: normal affect Attitude: cooperative Thought process: Normal thought process present Thought content: Normal thought content present Insight: Fair insight present (Psych) Judgement: Fair judgement present (Psych) Results AMB Urinalysis, Automated UA Leukoctes 0 Liat/uL Last Edit by PETTY Maxwell on 03/16/25 09:12 UA Nitrite Last Edit by PETTY Maxwell on 03/16/25 09:12 UA Urobilinogen 0.2 mg/dL Last Edit by PETTY Maxwell on 03/16/25 09:1 2 UA Protein 0 mg/dL Last Edit by PETTY Maxwell on 03/16/25 09:12 UA pH 6.0 Last Edit by PETTY Maxwell on 03/16/25 09:12 UA Blood 0 Rashard/uL Last Edit by PETTY Maxwell on 03/16/25 09:12 UA Specific Marshall 1.020 Last Edit by PETTY Maxwell on 03/16/25 09: 12 UA Ketone Last Edit by PETTY Maxwell on 03/16/25 09:12 UA Bilirubin 0 mg/dL Last Edit by PETTY Maxwell on 03/16/25 09:12 UA Glucose 0 mg/dL Last Edit by PETTY Maxwell on 03/16/25 09:12 Results Reviewed Results Reviewed: Laboratory Last Values Urine pH (Auto) 6.0 03/16/25 09:11 Specific Marshall (Auto) 1.020 03/16/25 09:11 Urine Protein (Auto) 0 mg/dL 03/16/25 09:11 Glucose (UA)(Auto) 0 mg/dL 03/16/25 09:11 Urine Blood (Auto) 0 Rashard/uL 03/16/25 09:11 Urine Bilirubin (Auto) 0 mg/dL 03/16/25 09:11 Urine Urobilinogen (Auto) 0.2 mg/dL 03/16/25 09:11 Leukocyte Esterase (Auto) 0 Liat/uL 03/16/25 09:11 Date of Service: 12/16/24 Procedure(s): CT abdomen pelvis w IV con FINDINGS: LUNG BASES: No acute airspace disease. LIVER, GALLBLADDER, AND BILIARY TREE: Liver measures 22 cm. Mild decreased enhancement pattern. No focal lesion. The portal veins are patent. No intrahepatic biliary ductal dilatation. No pericholecystic fluid collection or gallbladder wall thickening. Common bile duct measures 4 mm. PANCREAS: No focal mass. No peripancreatic fluid collections. No main pancreatic ductal dilatation. SPLEEN: 11 cm. No focal lesion. ADRENAL GLANDS: No nodular lesions. KIDNEYS AND URETERS: No hydronephrosis. No gross nephrolithiasis. 3.5 cm exophytic cyst, lower pole right kidney. No gross renal mass. Normal enhancement pattern of the renal parenchyma. BLADDER: Fluid-filled. GASTROINTESTINAL TRACT: Numerous diverticula throughout the left hemicolon mostly in the sigmoid colon. No pericolonic edema pattern. No intestinal wall thickening. No intestinal obstruction pattern. No pneumatosis intestinalis. No peripheral enhancing fluid collections, peritoneal cavity. No pneumoperitoneum. No ascites. Appendix is normal. ABDOMINAL WALL: Fat-containing umbilical and supraumbilical hernias. LYMPH NODES: Nonspecific bilateral prominent mesenteric and retroperitoneum. VASCULAR: Calcified plaques throughout the abdominal aorta wall and the origin of the mesenteric arteries the main renal arteries and iliac arteries. No aneurysm or dissection, abdominal aorta. Calcified plaques in the coronary arteries. There is tortuosity throughout the descending thoracic aorta and distal abdominal aorta. PELVIC VISCERA: Heterogeneous mildly prominent prostate gland. OSSEOUS STRUCTURES: Multilevel syndesmophyte formation and marginal osteophyte formation throughout the axial skeleton. Central spinal canal and right lateral neuroforamina narrowing at L4-5 and L5-S1. No acute fracture. No acute fracture or dislocation in either hip. Bony pelvis is. IMPRESSION: Hepatomegaly and mild and steatosis. Diverticular disease, left hemicolon. Fat-containing umbilical and supraumbilical hernias. 3.5 cm exophytic cyst, right kidney. Coronary artery disease and atherosclerosis disease. Spondylosis more pronounced at L4-5 and L5-S1. Assessment & Plan Assessment & Plan (1) Cyst, kidney, acquired: Code(s): N28.1 - Cyst of kidney, acquired Category: Medical Plan In office urinalysis results reviewed with the patient today; as noted above. Recent CT results reviewed with the patient today; as noted above. We discussed classifications of renal cysts as well as further interventions and risks and benefits of these interventions. He currently denies any bothersome urinary issues or concerns. He reports be happy with current voiding parameters. Will obtain MRI renal mass protocol. All questions were answered. Follow-up in 3 months with imaging to be completed prior; or sooner with any issues, concerns, and or questions. Orders: Orders AMB Urinalysis Automated Today Z13.9 - Encounter for screening, unspecified MR abdomen wo/w con Today N28.1 - Cyst of kidney, acquired Prostate Specific Antigen Today N40.0 - Benign prostatic hyperplasia without lower urinary tract symptoms Patient Instructions: The patient had an opportunity to ask questions regarding the treatment plan. All questions were answered. Physical exam, labs, and imaging were discussed and reviewed in detail. As well as risks, benefits, and discussion of treatment choices. No major barriers to understanding were identified. The patient expressed understanding and agreement with the above treatment plan. The patient was made aware they should contact our office by phone for worsening of their current condition, the appearance of new symptoms, or with any questions or concerns. Compliance is encouraged with any medications and follow up testing that is ordered. It is a privilege to be allowed the opportunity to participate in? your urological care.? Again, if you have any questions or concerns If you have any questions or concerns please do not hesitate to contact me. The office is [phone]. This note is constructed using voice recognition software. While every effort has been made to ensure accuracy land developer errors may have been included. Yours sincerely, CASEY Godinez Coding Level of Care Code New Pt Level 3 (92305) Diagnoses Cyst, kidney, acquired N28.1
== END 2025-03-16 09:26 | disposition home or self-care (01) ==
LOC: HO.HUSH 08:44
PROVIDERS: PCP Student in an Organized Health Care Education/Training Program; Visit Provider Nurse Practitioner Family
DX: N28.1 Cyst of kidney, acquired (principal); Z13.9 Encounter for screening, unspecified
CPT/HCPCS: 99203

== ENCOUNTER → 2025-03-16 08:44 | Outpatient (BNVA) | payer OTHER, SELFPAY | PROVIDERS: PCP Student in an Organized Health Care Education/Training Program; Visit Provider Nurse Practitioner Family | DX: N28.1 Cyst of kidney, acquired (principal) | CPT/HCPCS: 81003 ==

== ENCOUNTER 2025-04-06 08:58 | Outpatient (AMB) | payer OTHER, SELFPAY ==
[2025-04-06 09:07] LABS: Prothrombin Time Whole Bld POC 26.5 sec (11.1-13.5); ~PT, ~INR - Anti Coag Clinic 2.2 (0.9-1.1)
--- NOTE | 2025-04-06 09:12 | MHC.OFFVISCO ---
Intake Intake Visit Reasons: Anticoagulation Allergies No Known Allergies Allergy (Mild, Verified 03/16/25 09:26) N/A Nursing Note INR: 2.2 in therapeutic range Medications and supplements reviewed No changes in health, diet, medications, or supplements, Denies any signs and symptoms of bleeding or bruising or clotting. 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
== END 2025-04-06 09:13 | disposition home or self-care (01) ==
LOC: HO.ACS 08:58
PROVIDERS: PCP Student in an Organized Health Care Education/Training Program; Visit Provider Internal Medicine Medical Oncology
DX: Z79.01 Long term (current) use of anticoagulants (principal)

== ENCOUNTER 2025-04-06 09:26 | Outpatient (REF) | payer OTHER, SELFPAY ==
--- NOTE | ~2025-04-06 | MR_ITS ---
EXAMINATION: MR ABDOMEN WITHOUT AND WITH CONTRAST CLINICAL INFORMATION: And 28.1. Cyst of kidney, acquired. COMPARISON: July 04, 2015. Correlated to CT dated December 16, 2024. TECHNIQUE: MR abdomen was performed without and with use of 10.0 mL intravenous [(Gadavist) gadolinium contrast. Postcontrast images are performed in multiphase dynamic sequences. Imaging was performed in 3 planes. No reported immediate complications. FINDINGS: Patient's motion artifact. LUNG BASES: No enhancing mass. LIVER, GALLBLADDER, AND BILIARY TREE: Liver measures 19 cm. No focal enhancing lesion. Main portal veins, hepatic veins and intrahepatic portion of the IVC are patent. Gallbladder is fluid-filled contracted. No pericholecystic fluid collection or gallbladder wall thickening. Common bile duct measures 5 mm. PANCREAS: No focal mass. No peripancreatic fluid collection. No main pancreatic ductal dilatation. SPLEEN: 11 cm. No focal mass. ADRENAL GLANDS: No nodular lesion. KIDNEYS AND URETERS: No hydronephrosis. 3.4 cm, exophytic, nonenhancing, nonseptated, lobulated fluid signal characteristic lesion, posterior lower pole. Normal enhancement pattern of the renal cortex, bilaterally. No enhancing renal mass at either kidney. GASTROINTESTINAL TRACT: Abundant stool. No intestinal obstruction pattern. No ascites. No pneumatosis intestinalis. Appendix is normal. ABDOMINAL WALL: There diastases abdominal rectus muscles in the periumbilical region. Umbilical and supraumbilical fat-containing hernias. LYMPH NODES: Nonspecific mildly prominent mesenteric and retroperitoneum. VASCULAR: No aneurysm or dissection, abdominal aorta. OSSEOUS STRUCTURES: Multilevel thoracolumbar spondylosis. MR/MR abdomen wo/w con IMPRESSION: 3.4 cm Bosniak type I cyst. Hepatosplenomegaly. Umbilical and supraumbilical fat-containing hernias. Electronically signed by: Mode Saha MD 04/06/2025 10:48 AM EDT
== END 2025-04-06 09:27 | disposition home or self-care (01) ==
LOC: HO.MRI 09:26
PROVIDERS: PCP Student in an Organized Health Care Education/Training Program; Visit Provider Nurse Practitioner Family
DX: N28.1 Cyst of kidney, acquired (principal)
CPT/HCPCS: 74183; 85610; 99211; A9585

== ENCOUNTER → 2025-04-06 09:32 | Outpatient (BNV) | payer OTHER, SELFPAY | PROVIDERS: PCP Student in an Organized Health Care Education/Training Program; Visit Provider Radiology Diagnostic Radiology | DX: N28.1 Cyst of kidney, acquired (principal); R16.2 Hepatomegaly with splenomegaly, not elsewhere classified; K42.9 Umbilical hernia without obstruction or gangrene | CPT/HCPCS: 74183 ==

== ENCOUNTER 2025-05-18 07:46 | Outpatient (AMB) | payer OTHER, SELFPAY ==
[2025-05-18 07:52] LABS: Prothrombin Time Whole Bld POC 29.6 sec (11.1-13.5); ~PT, ~INR - Anti Coag Clinic 2.5 (0.9-1.1)
--- NOTE | 2025-05-18 07:54 | MHC.OFFVISCO ---
Intake Intake Visit Reasons: Anticoagulation Allergies No Known Allergies Allergy (Mild, Verified 05/18/25 07:47) N/A Medication List - Last Reconciled 05/18/25 by Lola Davies RN bupropion HCl XL 300 mg PO QAM 90 days calcium carbonate 1,000 mg PO DAILY cholecalciferol (vitamin D3) 50 mcg PO DAILY clorazepate dipotassium 7.5 mg PO TID comp.stocking,thigh,long,large As directed, 30-40 mm Hg pressure compress.stocking,knee,reg,lrg As directed magnesium 500 mg PO DAILY metoprolol tartrate 50 mg PO BID multivitamin 1 tab PO DAILY pantoprazole 40 mg PO DAILY simvastatin 20 mg PO DAILY warfarin See Protocol 12.5MG X 2DAY/ 10MG X5DAYS; Nursing Note INR: 2.5 in therapeutic range- MRI FOR KIDNEY TO RE-EVALUATE A CYST Medications and supplements reviewed No changes in health, diet, medications, or supplements, Denies any signs and symptoms of bleeding or bruising or clotting. Bleeding, bruising, clotting discussed Nutritional guidance given Dose: 5MG X 1 DAY/ 10MG X 6 DAYS F/U INR: 1 MONTH Patient verbalizes understanding of instructions given Anti-Coag Initial Assessment Social Hx Patient Tobacco Use Status: Former Tobacco user alcohol intake: never Coding Level of Care Code Est Patient Level 1 Diagnoses Current use of anticoagulant therapy Z79.01 Assessment & Plan Assessment & Plan (1) Current use of anticoagulant therapy: Comment: On Coumadin Code(s): Z79.01 - [facility] (current) use of anticoagulants Category: Medical
== END 2025-05-18 07:58 | disposition home or self-care (01) ==
LOC: HO.ACS 07:46
PROVIDERS: PCP Student in an Organized Health Care Education/Training Program; Visit Provider Internal Medicine Medical Oncology
DX: Z79.01 Long term (current) use of anticoagulants (principal)

== ENCOUNTER → 2025-05-18 07:46 | Outpatient (BNVA) | payer OTHER, SELFPAY | PROVIDERS: PCP Student in an Organized Health Care Education/Training Program; Visit Provider Internal Medicine Medical Oncology | DX: I48.19 Other persistent atrial fibrillation (principal); Z79.01 Long term (current) use of anticoagulants; Z51.81 Encounter for therapeutic drug level monitoring | CPT/HCPCS: 81003; 85610; 99211 ==

== ENCOUNTER 2025-05-18 08:07 | Outpatient (AMB) | payer OTHER, SELFPAY ==
--- NOTE | 2025-05-18 08:10 | A.OFFVIS_ITS ---
Intake Visit Reasons: 2m/MRI/UA Intake Note: Patient is present for 2M/MRI/UA Urology Medication:NONE Antibiotic Allergy:NONE Blood Thinner:WARFARIN Secondary Set Up Man Required: No Allergies No Known Allergies Allergy (Mild, Verified 05/18/25 08:35) N/A Medication List - Last Reconciled 05/18/25 by CASEY Godinez bupropion HCl XL 300 mg PO QAM 90 days calcium carbonate 1,000 mg PO DAILY cholecalciferol (vitamin D3) 50 mcg PO DAILY clorazepate dipotassium 7.5 mg PO TID comp.stocking,thigh,long,large As directed, 30-40 mm Hg pressure compress.stocking,knee,reg,lrg As directed magnesium 500 mg PO DAILY metoprolol tartrate 50 mg PO BID multivitamin 1 tab PO DAILY pantoprazole 40 mg PO DAILY simvastatin 20 mg PO DAILY warfarin See Protocol 12.5MG X 2DAY/ 10MG X5DAYS; HPI Comments Details: Steph is a pleasant 70-year-old male patient of Dr. Brittany Stuart. He has a past medical history of chronic kidney disease, depression, hyperlipidemia, GERD, obesity, diverticulitis, and paroxysmal AFib on anticoagulation. He presents to the office today for follow-up. Of note, patient was seen approximately 3 months ago as a new patient for renal cysts at which time an MRI renal mass protocol was ordered for further assessment evaluation. These results were reviewed and communicated with the patient today. 04/10 nephrosis. 3.4 cm exophytic nonenhancing, non septated, lobulated fluid signal care history lesion, posterior lower lobe. Bilateral normal enhancement pattern of the renal cortex. No enhancing renal masses at either kidney per radiology report. When asked he denies any bothersome urinary issues or concerns. He denies urinary urgency, urinary frequency, incontinence, nocturia, hematuria, dysuria, foul smelling urine, changes to urinary stream, flank pain, fever, and or chills. He is happy with his current voiding parameters. In review of patient's chart it appears PSAs are as follows: PSA; 06/03 0.8, 03/07 1.8, 05/07 1.0, 07/09 1.7 We discussed at length potential causes of renal cysts as well as further treatment options and risks and benefits of these treatment options. In office urinalysis results reviewed with the patient today. All questions were answered. He otherwise offers no other issues or concerns at this time. [facility] Medical History Depression Hyperlipidemia Benzodiazepine dependence, continuous GERD (gastroesophageal reflux disease) CKD stage 3a, GFR 45-59 ml/min Morbid obesity Diverticulitis PAF (paroxysmal atrial fibrillation) Current use of anticoagulant therapy Surgical History History of colonoscopy (~11/28/15) No pertinent past surgical history Family History Mother Acute leukemia Father CVD (cardiovascular disease) Heart attack Social History Housing: House Alcohol intake: never Patient Tobacco Use Status: Former Tobacco user Years Smoked: 8 years-quit 50 years ago e-Cigarette/Vaping Use: Never Used Second Hand Smoke Exposure: No service: No Current occupational status: retired Current occupational exposures/hazards: No Cognitive needs: No Hearing needs: No Vision needs: Yes Review of Systems Const All systems reviewed & are unremarkable except as noted in HPI and below Physical Exam Const General: cooperative, healthy appearing, comfortable, no acute distress, well developed, alert and awake Nutritional Appearance: overweight Orientation/consciousness: patient oriented x3 Limitations: no limitations HEENT Head: Yes normal to inspection, Yes normocephalic and Yes atraumatic Ears: hearing grossly normal bilaterally Eyes General: appearance normal, both eyes and all related structures Neck Neck: Yes normal visual inspection and Yes trachea midline Chest Chest palpation & inspection: normal inspection of the chest Resp Effort & Inspection: normal respiratory effort and able to speak in complete sentences Cardio Rate: regular rate GI Inspection: Yes normal to inspection General: Yes no CVA tenderness Back/Spine/Pelvis Back: no CVA tenderness Skin General skin exam: no rashes or lesions noted Neuro General: patient oriented x3 Extrem General: Yes normal to inspection Psych Appearance: grossly normal and well kempt Mental Status: mental status grossly normal Speech and movement: Normal speech and movement present and Clear speech present Affect: normal affect Attitude: cooperative Thought process: Normal thought process present Thought content: Normal thought content present Insight: Fair insight present (Psych) Judgement: Fair judgement present (Psych) Results AMB Urinalysis, Automated UA Leukoctes 0 Liat/uL Last Edit by PETTY Barnes on 05/18/25 08:20 UA Nitrite Negative Last Edit by PETTY Barnes on 05/18/25 08:20 UA Urobilinogen 0.2 mg/dL Last Edit by PETTY Barnes on 05/18/25 08:2 0 UA Protein 0 mg/dL Last Edit by PETTY Barnes on 05/18/25 08:20 UA pH 6.0 Last Edit by PETTY Barnes on 05/18/25 08:20 UA Blood 0 Rashard/uL Last Edit by PETTY Barnes on 05/18/25 08:20 UA Specific Jackson 1.015 Last Edit by PETTY Barnes on 05/18/25 08: 20 UA Ketone Negative Last Edit by PETTY Barnes on 05/18/25 08:20 UA Bilirubin 0 mg/dL Last Edit by PETTY Barnes on 05/18/25 08:20 UA Glucose 0 mg/dL Last Edit by PETTY Barnes on 05/18/25 08:20 Results Reviewed Results Reviewed: Laboratory Last Values Urine pH (Auto) 6.0 05/18/25 08:18 Specific Jackson (Auto) 1.015 05/18/25 08:18 Urine Protein (Auto) 0 mg/dL 05/18/25 08:18 Glucose (UA)(Auto) 0 mg/dL 05/18/25 08:18 Urine Ketones (Auto) Negative 05/18/25 08:18 Urine Blood (Auto) 0 Rashard/uL 05/18/25 08:18 Urine Nitrite (Auto) Negative 05/18/25 08:18 Urine Bilirubin (Auto) 0 mg/dL 05/18/25 08:18 Urine Urobilinogen (Auto) 0.2 mg/dL 05/18/25 08:18 Leukocyte Esterase (Auto) 0 Liat/uL 05/18/25 08:18 Date of Service: 04/06/25 Procedure(s): MR abdomen wo/w con FINDINGS: Patient's motion artifact. LUNG BASES: No enhancing mass. LIVER, GALLBLADDER, AND BILIARY TREE: Liver measures 19 cm. No focal enhancing lesion. Main portal veins, hepatic veins and intrahepatic portion of the IVC are patent. Gallbladder is fluid-filled contracted. No pericholecystic fluid collection or gallbladder wall thickening. Common bile duct measures 5 mm. PANCREAS: No focal mass. No peripancreatic fluid collection. No main pancreatic ductal dilatation. SPLEEN: 11 cm. No focal mass. ADRENAL GLANDS: No nodular lesion. KIDNEYS AND URETERS: No hydronephrosis. 3.4 cm, exophytic, nonenhancing, nonseptated, lobulated fluid signal characteristic lesion, posterior lower pole. Normal enhancement pattern of the renal cortex, bilaterally. No enhancing renal mass at either kidney. GASTROINTESTINAL TRACT: Abundant stool. No intestinal obstruction pattern. No ascites. No pneumatosis intestinalis. Appendix is normal. ABDOMINAL WALL: There diastases abdominal rectus muscles in the periumbilical region. Umbilical and supraumbilical fat-containing hernias. LYMPH NODES: Nonspecific mildly prominent mesenteric and retroperitoneum. VASCULAR: No aneurysm or dissection, abdominal aorta. OSSEOUS STRUCTURES: Multilevel thoracolumbar spondylosis. s IMPRESSION: 3.4 cm Bosniak type I cyst. Hepatosplenomegaly. Umbilical and supraumbilical fat-containing hernias. Assessment & Plan Assessment & Plan (1) Cyst, kidney, acquired: Code(s): N28.1 - Cyst of kidney, acquired Category: Medical Plan In office urinalysis results with the patient today; as noted above. Most recent MRI results reviewed with the patient today; as noted above. All questions were answered. He currently denies any bothersome urinary issues or concerns. He reports be happy with current voiding parameters. We did discussed importance of obtaining PSA as ordered during last office visit. We did discuss potential causes of renal cysts as well as further treatment options and risks and benefits of these treatment options. Will obtain PSA now and in 1 year. Will obtain renal ultrasound for surveillance monitoring in 1 year. Follow-up in 1 year with imaging and PSA; or sooner with any issues, concerns, and or questions. Orders: Orders AMB Urinalysis Automated Today Z13.9 - Encounter for screening, unspecified US renal BI 1 Year N28.1 - Cyst of kidney, acquired Prostate Specific Antigen 1 Year N40.0 - Benign prostatic hyperplasia without lower urinary tract symptoms Patient Instructions: The patient had an opportunity to ask questions regarding the treatment plan. All questions were answered. Physical exam, labs, and imaging were discussed and reviewed in detail. As well as risks, benefits, and discussion of treatment choices. No major barriers to understanding were identified. The patient expressed understanding and agreement with the above treatment plan. The patient was made aware they should contact our office by phone for worsening of their current condition, the appearance of new symptoms, or with any questions or concerns. Compliance is encouraged with any medications and follow up testing that is ordered. It is a privilege to be allowed the opportunity to participate in? your urological care.? Again, if you have any questions or concerns If you have any questions or concerns please do not hesitate to contact me. The office is [phone]. This note is constructed using voice recognition software. While every effort has been made to ensure accuracy sugar drier errors may have been included. Yours sincerely, CASEY Godinez Coding Level of Care Code Est Pt Level 3 (54337) Complex visit Add On G2211 Diagnoses Cyst, kidney, acquired N28.1
== END 2025-05-18 08:35 | disposition home or self-care (01) ==
LOC: HO.HUSH 08:08
PROVIDERS: PCP Student in an Organized Health Care Education/Training Program; Visit Provider Nurse Practitioner Family
DX: Z13.9 Encounter for screening, unspecified (principal); N28.1 Cyst of kidney, acquired
CPT/HCPCS: 99213